=== PATIENT | female | born 1955 | race Two or more races ===

== ENCOUNTER 2016-11-30 19:46 | Inpatient (IN) | payer MEDICAID ==
[~2016-11-30] VITALS: Ht 154.9 cm; Wt 54.4 kg
[~2016-11-30 19:46] MED LIST: ASPIR 8181 MG ORAL; GLIPIZIDE5 MG ORAL; METFORMIN HCL500 M1 ORAL
[2016-11-30] MEDS ORDERED: cholesterol med (19:51)
--- NOTE | 2016-11-30 19:53 | Emergency Room Report ---
History of Present Illness General Chief Complaint: Fever Source: Patient, EMS (JAMARCUS VARGHESE.Elias) Present Illness HPI Patient presents by paramedics for complaints of fever and chills Patient reports that she was recently in the hospital for 3 days sounds to be [facility] patient reports she was given antibiotics and does not know the source of her infection However today She felt increased chills and increased fever And summoned the paramedics Denies any abdominal pain denies any vomiting Denies any rash Patient has a history of diabetes and hypertension Denies any flank pain Denies any recent travel Denies any neck pain or photophobia (JAMARCUS VARGHESE.Micah.) Allergies: Coded Allergies: No Known Allergies (Unverified , 11/30/16) Patient History Past Medical History: see triage record Pertinent Family History: none Last Menstrual Period: n/a Reviewed Nursing Documentation: PMH: Agreed, PSxH: Agreed (JAMARCUS VARGHESE D.O.) Nursing Documentation-PMH Past Medical History: No History, Except For Hx Hypertension: Yes Hx Diabetes: Yes (JAMARCUS VARGHESE D.O.) Review of Systems All Other Systems: negative except mentioned in HPI (JAMARCUS VARGHESE.Elias) Physical Exam Vital Signs Date Time Temp Pulse Resp B/P (MAP) Pulse Ox O2 Delivery O2 Flow Rate FiO2 11/30/16 19:37 100.6 134 20 120/65 98 Room Air Sp02 EP Interpretation: reviewed, normal General Appearance: well appearing, no apparent distress Head: normocephalic, atraumatic Eyes: bilateral eye PERRL, bilateral eye EOMI ENT: hearing grossly normal, TMs + canals normal, uvula midline, dry mucus membranes Neck: full range of motion, supple, no meningismus, no bony tend Respiratory: lungs clear, normal breath sounds, no rhonchi, no respiratory distress, no retraction, no accessory muscle use Cardiovascular #1: normal peripheral pulses, no edema, no gallop, no JVD, no murmur, tachycardia Gastrointestinal: normal bowel sounds, non tender, soft, no mass, no organomegaly, non-distended, no guarding, no hernia, no pulsatile mass, no rebound Genitourinary: no CVA tenderness Musculoskeletal: normal inspection Neurologic: oriented x3, responsive, spot cleaner III-XII nml as tested, motor strength/ tone normal, sensory intact Psychiatric: mood/affect normal Skin: normal color, no rash, warm/dry, palpation normal Lymphatic: normal inspection, no adenopathy (JAMARCUS VARGHESE D.O.) Medical Decision Making Diagnostic Impression: Primary Impression: Sepsis Additional Impression: Pyelonephritis ER Course Multiple differentials considered Patient is presenting febrile and tachycardic there is likely source of infection raising concerns of sepsis There does not appear to be any signs of severe sepsis Patient was provided with broad-spectrum antibiotics cultures have been obtained the patient requires admission for further care Labs Test 11/30/16 20:20 White Blood Count 4.9 K/UL (4.8-10.8) Red Blood Count 3.37 M/UL (4.20-5.40) Hemoglobin 9.5 G/DL (12.0-16.0) Hematocrit 29.0 % (37.0-47.0) Mean Corpuscular Volume 86 FL (80-99) Mean Corpuscular Hemoglobin 28.3 PG (27.0-31.0) Mean Corpuscular Hemoglobin Concent 32.8 G/DL (32.0-36.0) Red Cell Distribution Width 13.0 % (11.6-14.8) Platelet Count 299 K/UL (150-450) Mean Platelet Volume 6.0 FL (6.5-10.1) Neutrophils (%) (Auto) % (45.0-75.0) Lymphocytes (%) (Auto) % (20.0-45.0) Monocytes (%) (Auto) % (1.0-10.0) Eosinophils (%) (Auto) % (0.0-3.0) Basophils (%) (Auto) % (0.0-2.0) Differential Total Cells Counted 100 Neutrophils % (Manual) 87 % (45-75) Lymphocytes % (Manual) 5 % (20-45) Monocytes % (Manual) 2 % (1-10) Eosinophils % (Manual) 0 % (0-3) Basophils % (Manual) 0 % (0-2) Band Neutrophils 6 % (0-8) Platelet Estimate Adequate Platelet Morphology Normal Hypochromasia 1+ Anisocytosis 1+ Urine Color Pale yellow Urine Appearance Slightly cloudy Urine pH 7 (4.5-8.0) Urine Specific [place] 1.010 (1.005-1.035) Urine Protein 2+ (NEGATIVE) Urine Glucose (UA) Negative (NEGATIVE) Urine Ketones Negative (NEGATIVE) Urine Occult Blood 3+ (NEGATIVE) Urine Nitrite Positive (NEGATIVE) Urine Bilirubin Negative (NEGATIVE) Urine Urobilinogen Normal MG/DL (0.0-1.0) Urine Leukocyte Esterase 3+ (NEGATIVE) Urine RBC 15-20 /HPF (0 - 2) Urine WBC 30-40 /HPF (0 - 2) Urine Squamous Epithelial Cells Few /LPF (NONE/OCC) Urine Amorphous Sediment Few /LPF (NONE) Urine Bacteria Moderate /HPF (NONE) Sodium Level 138 mEQ/L (135-145) Potassium Level 3.7 mEQ/L (3.4-4.9) Chloride Level 101 mEQ/L (98-107) Carbon Dioxide Level 22 mEQ/L (20-30) Anion Gap 15 (5-15) Blood Urea Nitrogen 18 mg/dL (7-23) Creatinine 0.9 mg/dL (0.5-0.9) Estimat Glomerular Filtration Rate > 60 mL/min (>60) Glucose Level 150 mg/dL (74-106) Lactic Acid Level 1.00 mmol/L (0.66-2.22) Calcium Level 8.6 mg/dL (8.6-10.2) Total Bilirubin 0.8 mg/dL (0.0-1.2) Aspartate Amino Transf (AST/SGOT) 19 U/L (5-40) Alanine Aminotransferase (ALT/SGPT) 18 U/L (3-33) Alkaline Phosphatase 85 U/L (35-104) Total Creatine Kinase 289 U/L (26-140) Creatine Kinase MB 3.2 ng/mL (< 3.8) Creatine Kinase MB Relative Index 1.1 Total Protein 7.7 g/dL (6.6-8.7) Albumin 3.3 g/dL (3.5-5.2) Globulin 4.4 g/dL Albumin/Globulin Ratio 0.7 (1.0-2.7) Lipase 23 U/L (< 60) (JAMARCUS VARGHESE D.OFreddie) ER Course Received signout 61-year-old female likely with pyelonephritis, pending formal read of CAT scan Received antibiotic, defervesced, pain improved Will be admitted to [facility] to Dr. duckworth (Kristofer Smith M.D.) Rhythm Strip Diag. Results EP Interpretation: yes Rate: 115 Rhythm: no PVC's, no ectopy, other - sinus tach (AJMARCUS VARGHESE D.O.) Chest X-Ray Diagnostic Results Chest X-Ray Diagnostic Results : Chest X-Ray Ordered: Yes # of Views/Limited/Complete: 1 View Indication: Chest Pain EP Interpretation: Yes Interpretation: no consolidation, no effusion, no pneumothorax Impression: No acute disease Electronically Signed by: Jamarcus Varghese DO (JAMARCUS VARGHESE D.O.) CT/MRI/US Diagnostic Results CT/MRI/US Diagnostic Results : Impression ct abd pelvis:Impression: Severe bilateral hydronephrosis and hydroureter which appears to be related to extrinsic compression of distal ureters secondary to severe inferior vaginal prolapse of urinary bladder. (JAMARCUS VARGHESE D.O.) Last Vital Signs Date Time Temp Pulse Resp B/P (MAP) Pulse Ox O2 Delivery O2 Flow Rate FiO2 11/30/16 19:37 100.6 134 20 120/65 98 Room Air Status: improved (JAMARCUS VARGHEES D.O.) Disposition: ADMITTED INPATIENT Condition: Serious JAMARCUS VARGHESE D.O. Nov 30, 2016 19:53 Kristofer Smith M.D. Nov 30, 2016 22:40
[2016-11-30] MEDS ORDERED: NS 1000ml 1,600 ML IVLG ONE (20:00)
[2016-11-30] MEDS ORDERED: cefTRIAXone 1 GM in NS 55 ML IVPB ONE (20:00)
[2016-11-30 20:35] VITALS: BP 131/55
[2016-11-30 20:43] LABS: MEAN CORPUSCULAR HEMOGLOBIN 28.3 PG (27.0-31.0); MEAN CORPUSCULAR HGB CONC 32.8 G/DL (32.0-36.0); MEAN CORPUSCULAR VOLUME 86 FL (80-99); PLATELET COUNT 299 K/UL (150-450); RED BLOOD COUNT 3.37 M/UL (4.20-5.40); WHITE BLOOD COUNT 4.9 K/UL (4.8-10.8)
[2016-11-30 20:54] LABS: ALANINE AMINOTRANSFERASE 18 U/L (3-33); ALBUMIN/GLOBULIN RATIO 0.7 (1.0-2.7); ANION GAP 15 (5-15); ASPARTATE AMINO TRANSFERASE 19 U/L (5-40); CALCIUM 8.6 mg/dL (8.6-10.2); CARBON DIOXIDE 22 mEQ/L (20-30); CHLORIDE 101 mEQ/L (98-107); CREATININE 0.9 mg/dL (0.5-0.9); GLOMERULAR FILTRATION RATE > 60 mL/min (>60); HEMOLYSIS 0; LIPASE 23 U/L (< 60); POTASSIUM 3.7 mEQ/L (3.4-4.9); SODIUM 138 mEQ/L (135-145); TOTAL PROTEIN 7.7 g/dL (6.6-8.7)
[2016-11-30 21:00] LABS: APPEARANCE,URINE SLIGHTLY CLOUDY; KETONES,URINE NEGATIVE (NEGATIVE); LEUKOCYTE ESTERASE ,URINE 3+ (NEGATIVE); NITRITE,URINE POSITIVE (NEGATIVE); PH,URINE 7 (4.5-8.0); PROTEIN,URINE 2+ (NEGATIVE); UROBILINOGEN,URINE NORMAL MG/DL (0.0-1.0)
[2016-11-30 21:05] LABS: CKMB 3.2 ng/mL (< 3.8)
[2016-11-30 21:07] LABS: AMORPHOUS SEDIMENT,UR FEW /LPF; BACTERIA,URINE MODERATE /HPF; RBC,URINE 15-20 /HPF (0 - 2); SQUAMOUS EPITHELIAL CELL,UR FEW /LPF (NONE/OCC); WBC,URINE 30-40 /HPF (0 - 2)
[2016-11-30] MEDS ORDERED: AZITHROMYC200 MG/5 M ORAL (21:11)
[2016-11-30 21:12] VITALS: BP 114/48
[2016-11-30 21:47] LABS: ANISOCYTOSIS 1+; BAND NEUTROPHILS % (MANUAL) 6 % (0-8); BASOPHILS % (MANUAL) 0 % (0-2); EOSINOPHILS % (MANUAL) 0 % (0-3); HYPOCHROMASIA 1+; LYMPHOCYTES % (MANUAL) 5 % (20-45); NEUTROPHILS % (MANUAL) 87 % (45-75); PLATELET ESTIMATE ADEQUATE; PLATELET MORPHOLOGY NORMAL; TOTAL CELLS COUNTED 100
[2016-11-30 21:59] VITALS: BP 103/49
[2016-11-30] MEDS ORDERED: Morphine Sulfate 2mg/ml Inj IVP PRN (22:45)
[2016-11-30] MEDS ORDERED: Nitroglycerin Subl 0.4mg tab SL PRN (22:45)
[2016-11-30] MEDS ORDERED: Miralax 17gm pkt ORAL PRN (22:45)
[2016-11-30] MEDS ORDERED: Albuterol/Ipratropium 3ml neb HHN PRN (22:45)
[2016-11-30 22:58] VITALS: BP 96/43
[2016-11-30 23:26] VITALS: BP 104/50
[2016-12-01] VITALS (7 sets, daily range): BP systolic 93–123; BP diastolic 51–64
[2016-12-01] MEDS ORDERED: Vancomycin 1gm inj IVPB ONE (00:32)
[2016-12-01] MEDS: Vancomycin 1 GM in D5W 275 ML IV SCH (00:42)
[2016-12-01] MEDS: NovoLOG Insulin Flexpen SUBQ SCH ×4 (06:35→21:34)
[2016-12-01 07:53] LABS: MEAN CORPUSCULAR HEMOGLOBIN 28.6 PG (27.0-31.0); MEAN CORPUSCULAR HGB CONC 33.1 G/DL (32.0-36.0); MEAN CORPUSCULAR VOLUME 86 FL (80-99); MEAN PLATELET VOLUME 6.5 FL (6.5-10.1); PLATELET COUNT 301 K/UL (150-450); RED BLOOD COUNT 3.15 M/UL (4.20-5.40); WHITE BLOOD COUNT 20.9 K/UL (4.8-10.8)
[2016-12-01 08:12] LABS: ALANINE AMINOTRANSFERASE 19 U/L (3-33); ALBUMIN/GLOBULIN RATIO 0.7 (1.0-2.7); ANION GAP 12 (5-15); ASPARTATE AMINO TRANSFERASE 29 U/L (5-40); CALCIUM 8.1 mg/dL (8.6-10.2); CARBON DIOXIDE 24 mEQ/L (20-30); CHLORIDE 109 mEQ/L (98-107); CREATININE 0.9 mg/dL (0.5-0.9); GLOMERULAR FILTRATION RATE > 60 mL/min (>60); HEMOLYSIS 5; SODIUM 145 mEQ/L (135-145); TOTAL PROTEIN 6.7 g/dL (6.6-8.7)
[2016-12-01] MEDS: Cefepime HCl 2 GM in D5W 110 ML IV SCH (08:51)
[2016-12-01] MEDS: Heparin 5000 units/ml inj SUBQ SCH ×2 (08:53→21:34)
--- NOTE | 2016-12-01 09:17 | Diagnostic Imaging Report ---
Clinical Indication: Abdominal pain, fever, chills Technique: No oral contrast utilized, per emergency room physician request IV administration nonionic contrast. Venous phase spiral acquisition obtained through the abdomen and pelvis. Multiplanar reconstructions were generated. Total dose length product 679 mGycm. CTDIvol(s) 14 mGy. Dose reduction achieved using automated exposure control Comparison: None Findings: There is massive bilateral hydronephrosis and hydroureter. The ureteral dilatation extends deep into the perineum. The bladder itself also appears to the prolapse into the perineum. The actual ureteral insertions are not well delineated, however. The bladder itself is mildly thick walled. No renal or ureteral calculi are demonstrated. There is mild infiltration of the bilateral perinephric and periureteral fat. The kidneys demonstrate bilateral cysts, as well as bilateral subcentimeter low-attenuation lesions which are too small to characterize. There is no evidence of diverticulosis or diverticulitis. The appendix is normal. No small bowel distention. There is mild diastases of the rectus abdominis tendon and a tiny focal fat-containing umbilical hernia. No free or loculated intraperitoneal air or fluid. Distal esophagus, stomach are unremarkable. There is a duodenal diverticulum. The liver, gallbladder, bile ducts, pancreas, spleen, adrenals are unremarkable. There are prominent but not frankly enlarged para-aortic and pericaval lymph nodes. Largest pericaval node measures 22 mm long axis dimension. There are prominent but not frankly enlarged pelvic sidewall lymph nodes as well as left inguinal nodes. The included lung bases demonstrate posterior dependent atelectatic changes. There is a calcified granuloma at the left lung base. The heart is borderline enlarged. The bones demonstrate degenerative spondylosis changes. Impression: Massive bilateral hydronephrosis and bilateral hydroureter. Unusual anatomy of the bladder and distal ureters. There is suggestion of collapse of the bladder floor, which could be causing extrinsic compression of the ureters. However, the possibility of ectopic ureteral insertions into the urethra should also be considered. Some stranding of the bilateral perinephric and periureteral fat, could indicate superimposed infection Nonspecific prominent para-aortic, paracaval, left inguinal nodes Borderline cardiomegaly Renal cysts. Additional bilateral subcentimeter low-attenuation lesions, too small to characterize but most likely representing benign simple cysts. No further followup necessary Incidental findings as noted, including degenerative spondylosis, posterior dependent pulmonary atelectasis, left lung base calcified granuloma duodenal diverticulum, mild diastases of the rectus abdominis tendon, tiny focal fat-containing umbilical hernia This agrees with the preliminary interpretation provided overnight by [facility] teleradiology service.. Findings also discussed by phone with Dr. Novak at the time of interpretation The CT scanner at [facility] is accredited by the [employer] and the scans are performed using protocols designed to limit radiation exposure to as low as reasonably achievable to attain images of sufficient resolution adequate for diagnostic evaluation.
[2016-12-01 10:28] LABS: BAND NEUTROPHILS % (MANUAL) 4 % (0-8); BASOPHILS % (MANUAL) 1 % (0-2); EOSINOPHILS % (MANUAL) 0 % (0-3); LYMPHOCYTES % (MANUAL) 3 % (20-45); NEUTROPHILS % (MANUAL) 91 % (45-75); PLATELET ESTIMATE ADEQUATE; PLATELET MORPHOLOGY NORMAL; TOTAL CELLS COUNTED 100
--- NOTE | 2016-12-01 10:49 | Diagnostic Imaging Report ---
Indication: SOB Technique: One view of the chest Comparison: none Findings: Lungs and pleural spaces are clear. Heart size is normal. The aorta is calcified Impression: No acute process
--- NOTE | 2016-12-01 11:59 | History and Physical ---
History of Present Illness General Date patient seen: Dec 01, 2016 Reason for Hospitalization: Fever Present Illness HPI 61 year old female with hx of DM, HTN, presented with fever and chills. Her CT of abdomen showed hydronephrosis and prolaps of bladder. She is admitted to telemetry because of borderline hypotension. Allergies: Coded Allergies: No Known Allergies (Unverified , 11/30/16) Medication History Scheduled Aspirin* (Aspir 81*), 81 MG ORAL DAILY, (Reported) Azithromycin* (Azithromycin*), 200 MG ORAL BID, (Reported) Glipizide* (Glipizide*), 5 MG ORAL BIDAC, (Reported) Metformin Hcl* (Metformin Hcl*), 500 MG ORAL TWICE A DAY, (Reported) Miscellaneous Medications [cholesterol med], (Reported) Patient History Healthcare decision maker N Resuscitation status Full Code Advanced Directive on File Past Medical/Surgical History Past Medical/Surgical History: (1) Diabetes mellitus (2) Hypertension Review of Systems All Other Systems: negative except mentioned in HPI Physical Exam General Appearance: WD/WN, no apparent distress Lines, tubes and drains: peripheral, trach HEENT: normocephalic, atraumatic Neck: non-tender, normal alignment Respiratory/Chest: chest wall non-tender, lungs clear Breasts: no masses Cardiovascular/Chest: normal peripheral pulses Abdomen: normal bowel sounds Genitourinary/Rectal: normal genital exam Extremities: normal range of motion, non-tender Skin Exam: normal pigmentation Last 24 Hour Vital Signs Date Time Temp Pulse Resp B/P (MAP) Pulse Ox O2 Delivery O2 Flow Rate FiO2 12/01/16 08:46 88 16 Room Air 21 12/01/16 08:00 86 12/01/16 08:00 99.0 87 17 97/58 96 Room Air 12/01/16 04:14 98.1 88 18 93/53 97 Room Air 12/01/16 01:08 88 12/01/16 00:15 97.2 92 18 100/51 96 Room Air 12/01/16 00:02 99.6 112 20 104/50 97 Room Air 100 11/30/16 23:26 99.6 100 20 104/50 97 Room Air 11/30/16 22:58 99.6 102 20 96/43 97 Room Air 11/30/16 22:52 99.6 112 20 103/49 96 Room Air 102 11/30/16 21:59 99.6 98 20 103/49 96 Room Air 11/30/16 21:12 100.4 112 20 114/48 96 Room Air 11/30/16 21:11 100.4 11/30/16 20:35 103.0 112 20 131/55 96 Room Air 11/30/16 19:37 100.6 134 20 120/65 98 Room Air Laboratory Tests Test 11/30/16 20:20 12/01/16 06:50 White Blood Count 4.9 K/UL (4.8-10.8) 20.9 K/UL (4.8-10.8) #H Red Blood Count 3.37 M/UL (4.20-5.40) L 3.15 M/UL (4.20-5.40) L Hemoglobin 9.5 G/DL (12.0-16.0) L 9.0 G/DL (12.0-16.0) L Hematocrit 29.0 % (37.0-47.0) L 27.2 % (37.0-47.0) L Mean Corpuscular Volume 86 FL (80-99) 86 FL (80-99) Mean Corpuscular Hemoglobin 28.3 PG (27.0-31.0) 28.6 PG (27.0-31.0) Mean Corpuscular Hemoglobin Concent 32.8 G/DL (32.0-36.0) 33.1 G/DL (32.0-36.0) Red Cell Distribution Width 13.0 % (11.6-14.8) 13.0 % (11.6-14.8) Platelet Count 299 K/UL (150-450) 301 K/UL (150-450) Mean Platelet Volume 6.0 FL (6.5-10.1) L 6.5 FL (6.5-10.1) Neutrophils (%) (Auto) % (45.0-75.0) % (45.0-75.0) Lymphocytes (%) (Auto) % (20.0-45.0) % (20.0-45.0) Monocytes (%) (Auto) % (1.0-10.0) % (1.0-10.0) Eosinophils (%) (Auto) % (0.0-3.0) % (0.0-3.0) Basophils (%) (Auto) % (0.0-2.0) % (0.0-2.0) Differential Total Cells Counted 100 100 Neutrophils % (Manual) 87 % (45-75) H 91 % (45-75) H Lymphocytes % (Manual) 5 % (20-45) L 3 % (20-45) L Monocytes % (Manual) 2 % (1-10) 1 % (1-10) Eosinophils % (Manual) 0 % (0-3) 0 % (0-3) Basophils % (Manual) 0 % (0-2) 1 % (0-2) Band Neutrophils 6 % (0-8) 4 % (0-8) Platelet Estimate Adequate Adequate Platelet Morphology Normal Normal Hypochromasia 1+ Anisocytosis 1+ Urine Color Pale yellow Urine Appearance Slightly cloudy Urine pH 7 (4.5-8.0) Urine Specific [place] 1.010 (1.005-1.035) Urine Protein 2+ (NEGATIVE) H Urine Glucose (UA) Negative (NEGATIVE) Urine Ketones Negative (NEGATIVE) Urine Occult Blood 3+ (NEGATIVE) H Urine Nitrite Positive (NEGATIVE) H Urine Bilirubin Negative (NEGATIVE) Urine Urobilinogen Normal MG/DL (0.0-1.0) Urine Leukocyte Esterase 3+ (NEGATIVE) H Urine RBC 15-20 /HPF (0 - 2) H Urine WBC 30-40 /HPF (0 - 2) H Urine Squamous Epithelial Cells Few /LPF (NONE/OCC) Urine Amorphous Sediment Few /LPF (NONE) H Urine Bacteria Moderate /HPF (NONE) H Sodium Level 138 mEQ/L (135-145) 145 mEQ/L (135-145) Potassium Level 3.7 mEQ/L (3.4-4.9) 4.0 mEQ/L (3.4-4.9) Chloride Level 101 mEQ/L (98-107) 109 mEQ/L (98-107) H Carbon Dioxide Level 22 mEQ/L (20-30) 24 mEQ/L (20-30) Anion Gap 15 (5-15) 12 (5-15) Blood Urea Nitrogen 18 mg/dL (7-23) 13 mg/dL (7-23) Creatinine 0.9 mg/dL (0.5-0.9) 0.9 mg/dL (0.5-0.9) Estimat Glomerular Filtration Rate > 60 mL/min (>60) > 60 mL/min (>60) Glucose Level 150 mg/dL (74-106) H 145 mg/dL (74-106) H Lactic Acid Level 1.00 mmol/L (0.66-2.22) Calcium Level 8.6 mg/dL (8.6-10.2) 8.1 mg/dL (8.6-10.2) L Total Bilirubin 0.8 mg/dL (0.0-1.2) 0.9 mg/dL (0.0-1.2) Aspartate Amino Transf (AST/SGOT) 19 U/L (5-40) 29 U/L (5-40) Alanine Aminotransferase (ALT/SGPT) 18 U/L (3-33) 19 U/L (3-33) Alkaline Phosphatase 85 U/L (35-104) 105 U/L (35-104) H Total Creatine Kinase 289 U/L (26-140) H Creatine Kinase MB 3.2 ng/mL (< 3.8) Creatine Kinase MB Relative Index 1.1 Total Protein 7.7 g/dL (6.6-8.7) 6.7 g/dL (6.6-8.7) Albumin 3.3 g/dL (3.5-5.2) L 2.9 g/dL (3.5-5.2) L Globulin 4.4 g/dL 3.8 g/dL Albumin/Globulin Ratio 0.7 (1.0-2.7) L 0.7 (1.0-2.7) L Lipase 23 U/L (< 60) Urine Opiates Screen Negative (NEGATIVE) Urine Barbiturates Screen Negative (NEGATIVE) Phencyclidine (PCP) Screen Negative (NEGATIVE) Urine Amphetamines Screen Negative (NEGATIVE) Urine Benzodiazepines Screen Negative (NEGATIVE) Urine Cocaine Screen Negative (NEGATIVE) Urine Marijuana (THC) Screen Negative (NEGATIVE) Red Blood Cell Morphology Normal Height (Feet): 5 Height (Inches): 1.00 Weight (Pounds): 120 Medications Current Medications Medications (Trade) Dose Ordered Sig/Angeli Route PRN Reason Start Time Stop Time Status Last Admin Dose Admin Acetaminophen (Tylenol) 650 mg Q4H PRN ORAL fever 11/30/16 22:45 12/30/16 22:44 Albuterol/ Ipratropium (DuoNeb 0.5-3(2.5)mg/3ml) 3 ml EVERY 4 HOURS PRN HHN Shortness of Breath 11/30/16 22:45 12/05/16 22:44 Cefepime HCl 2 gm/ Dextrose 110 ml @ 220 mls/hr Q24H IV 12/01/16 09:00 12/08/16 08:59 12/01/16 08:51 Dextrose (Dextrose 50%) STAT PRN IV Hypoglycemia 11/30/16 22:45 12/30/16 22:44 Heparin Sodium (Porcine) (Heparin 5000 units/ml) 5,000 units EVERY 12 HOURS SUBQ 12/01/16 09:00 12/31/16 08:59 12/01/16 08:53 Insulin Aspart (NovoLOG) BEFORE MEALS AND HS SUBQ 12/01/16 06:30 12/31/16 06:29 12/01/16 06:35 Morphine Sulfate (Morphine Sulfate) 2 mg EVERY 4 HOURS PRN IVP Moderate Pain (Pain Scale 4-6) 11/30/16 22:45 12/07/16 22:44 Nitroglycerin (Ntg) 0.4 mg PRN PRN SL Prn Chest Pain 11/30/16 22:45 12/30/16 22:44 Ondansetron HCl (Zofran) 4 mg Q6H PRN IVP Nausea & Vomiting 11/30/16 22:45 12/30/16 22:44 Polyethylene Glycol (Miralax) 17 gm DAILYPRN PRN ORAL Constipation 11/30/16 22:45 12/30/16 22:44 Temazepam (Restoril) 15 mg HSPRN PRN ORAL Insomnia 11/30/16 22:45 12/07/16 22:44 Vancomycin HCl (Vanco rx to dose) 1 ea DAILY PRN MISC PER RX PROTOCOL 12/01/16 10:45 12/31/16 10:44 Vancomycin HCl 1 gm/Dextrose 275 ml @ 183.3 mls/ hr Q24H IV 12/01/16 00:30 12/06/16 00:29 12/01/16 00:42 Assessment/Plan Problem List: (1) Sepsis ICD Codes: A41.9 - Sepsis, unspecified organism SNOMED: 48838332 (2) Pyelonephritis ICD Codes: N12 - Tubulo-interstitial nephritis, not specified as acute or chronic SNOMED: 54215623 (3) Diabetes mellitus ICD Codes: E11.9 - Type 2 diabetes mellitus without complications SNOMED: 84098080 (4) Hypertension ICD Codes: I10 - Essential (primary) hypertension SNOMED: 35243679 Assessment/Plan stevenson culture IV abx Urology and ID to see dvt prophylaxis TRINA VÁSQUEZ Dec 01, 2016 11:59
[2016-12-01] MEDS ORDERED: NS 275ml ONE (15:41)
[2016-12-01] MEDS ORDERED: Tubing IV Secondary IV ONE (15:41)
--- NOTE | 2016-12-01 16:30 | Cardiology Report ---
APPROVED REPORT EKG Measurement Heart [id number] MT [id number] [id number] Sinus tachycardia Otherwise normal ECG
[2016-12-01 18:52] LABS: URIC ACID 3.2 mg/dL (3.0-7.5)
[2016-12-01 19:00] LABS: THYROID STIMULATING HORMONE 1.25 uIU/mL (0.300-4.500)
[2016-12-02] MEDS: Vancomycin 1 GM in D5W 275 ML IV SCH (00:35)
[2016-12-02 03:59] VITALS: BP 108/57
[2016-12-02] MEDS: NovoLOG Insulin Flexpen SUBQ SCH ×4 (06:30→20:43)
--- NOTE | 2016-12-02 06:45 | Consultation ---
DATE OF CONSULTATION: 12/01/2016 UROLOGY CONSULTATION CONSULTING PHYSICIAN: Gerson Lopez M.D. ATTENDING/REFERRING PHYSICIAN: Jayla Novak M.D. Chief Complaint/History Of Present Illness: I was asked by Dr. Novak to evaluate this very pleasant, 61-year-old, female regarding a history of vaginal prolapse and bilateral hydroureteronephrosis possibly secondary to same. Briefly, the patient has a history of prolapse and was seen at [facility] for the same several months ago. Initially, she was treated with a pessary, which improved things and allowed her to return to regular activities. Unfortunately, however the prolapse eventually occurred around her pessary and led to urinary retention. It was felt that the pessary maybe contributing and it was removed. The patient had failed to follow up with [facility] since that time. She now presents to the hospital with history of fevers and chills. A CT scan of the abdomen and pelvis reveals hydroureteronephrosis bilaterally and prolapsed organ within the vagina. Given the same, I was asked to evaluate the patient. PAST MEDICAL HISTORY: 1. Diabetes mellitus. 2. Hypertension. 3. Pelvic prolapse. 4. Hypercholesterolemia. Medications: Please see the chart for current medications administration details. Briefly, the patient generally is on glipizide and metformin. She is receiving azithromycin for antibiotic coverage. ALLERGIES: No known drug allergies. SOCIAL HISTORY: Unremarkable for tobacco, alcohol, or drug use. FAMILY HISTORY: Noncontributory. Review Of Systems: A 12-system review of systems essentially unremarkable outside was described above. PHYSICAL EXAMINATION: General: The patient is an older female, awake, alert, and oriented x4. Very pleasant. No obvious distress. HEENT: NC/AT. EOMI. NECK: Supple. Full range of motion. Oropharynx clear. CHEST: Within normal limits. ABDOMEN: Soft, flat, nontender and nondistended. Extremities: Warm and well perfused. No cyanosis, clubbing, or edema. BACK: No CVA tenderness to percussion. NEUROLOGIC: Grossly nonfocal. Genitourinary: Reveals uterine prolapse grade 3 with the os visible on the cervix. The bladder is not appreciably prolapsed next to or around the uterus. This was reducible today at the bedside. Laboratory Data: White blood cell count 20.9, hematocrit 27.2, and platelets 301,000. Urinalysis specific gravity 1.010, pH 7.0. Dip test notable for 2+ protein, 3+ occult blood, positive nitrites, and 3+ leukocyte esterase. Microanalysis with 15 to 20 red blood cells per high-power field, 30 to 40 white blood cells per power field and moderate bacteria seen. Urine culture is pending. Sodium 145, potassium 4.0, chloride 109, bicarb 24, BUN 13, creatinine 0.9, and glucose 145. Calcium 8.1. Uric acid 3.2. LFTs within normal limits. Alkaline phosphatase 105. Urine toxicology negative. Diagnostic Imaging: CT scan of the abdomen and pelvis reveals massive bilateral hydroureteronephrosis and hydroureter. The ureteral dilatation extends deep into the perineum. The bladder also appears to prolapse in the perineum. The actual ureteral insertions are not well delineated. However, the bladder itself is mildly thick walled. There are no calculi demonstrated. There is mild stranding of bilateral renal cysts. Discussion And Decision-Making: In summary, Ms. Carlos is a 61-year-old female with a history of pelvic prolapse in the past. She has been treated with a pessary for the same, but later had a removed when she could urinate. Since that time, she has not followed up until now when she presents to the hospital with fevers and chills and evidence of urinary tract infection. Workup with CT scan revealed bilateral hydroureteronephrosis and anatomy of the pelvis thought to be a prolapsed bladder. Physical exam however reveals that the uterus is prolapsed and is likely compressing both ureters and causing the hydroureteronephrosis. There is no appreciable prolapse of bladder visible. Laboratory data is notable for evidence of urinary tract infection and elevated white blood cell count. Diagnostic imaging reveals the findings as described above. Today, at the bedside, I did reduce the patient's uterus easily into her vagina. I discussed these findings with her and instructed her that she needs to be treated for her infection prior to considering any surgery. We will continue antibiotics and fluids and supportive care. Once the patient is improved and discharged home, she needs to follow up with a plan contracted director [facility] for consideration of simple hysterectomy for treatment of the same. The need for a concomitant cystocele repair can be assessed at that time, but again I could not appreciate any significant bladder prolapse today at the bedside. Thank you for allowing me to participate in the care of this nice lady. Please do not hesitate to contact me if questions that further have regarding her care. I will be happy to see her with you as needed. Gerson Lopez M.D. DR: VIVIANA JOB#: [id number] CC:
[2016-12-02 07:47] LABS: MEAN CORPUSCULAR HEMOGLOBIN 28.1 PG (27.0-31.0); MEAN CORPUSCULAR HGB CONC 32.5 G/DL (32.0-36.0); MEAN CORPUSCULAR VOLUME 86 FL (80-99); MEAN PLATELET VOLUME 6.4 FL (6.5-10.1); PLATELET COUNT 256 K/UL (150-450); RED BLOOD COUNT 3.11 M/UL (4.20-5.40); WHITE BLOOD COUNT 10.6 K/UL (4.8-10.8)
[2016-12-02 08:00] VITALS: BP 114/70
[2016-12-02 08:03] LABS: INR 1.1 (0.9-1.1); PROTHROMBIN TIME 11.4 SEC (9.30-11.50)
[2016-12-02 08:04] LABS: ALANINE AMINOTRANSFERASE 25 U/L (3-33); ALBUMIN/GLOBULIN RATIO 0.7 (1.0-2.7); ANION GAP 12 (5-15); ASPARTATE AMINO TRANSFERASE 33 U/L (5-40); CALCIUM 8.6 mg/dL (8.6-10.2); CARBON DIOXIDE 25 mEQ/L (20-30); CHLORIDE 109 mEQ/L (98-107); CREATININE 0.8 mg/dL (0.5-0.9); GLOMERULAR FILTRATION RATE > 60 mL/min (>60); LACTATE DEHYDROGENASE 273 U/L (135-230); MAGNESIUM 1.9 mg/dL (1.7-2.5); PHOSPHORUS 3.3 mg/dL (2.5-4.8); POTASSIUM 3.3 mEQ/L (3.4-4.9); SODIUM 146 mEQ/L (135-145); TOTAL PROTEIN 6.5 g/dL (6.6-8.7)
[2016-12-02 08:14] LABS: HOMOCYSTINE QUANT 8.6 umol/L (0.0-15.0)
[2016-12-02 08:34] LABS: ERYTHROCYTE SEDIMENTATION RATE 125 MM/HR (0-30); HEMOLYSIS 3; IRON 12 ug/dL (37-145); TOTAL IRON BINDING CAPACITY 201 ug/dL (250-400)
--- NOTE | 2016-12-02 08:46 | Consultation ---
DATE OF CONSULTATION: 12/01/2016 HEMATOLOGY/ONCOLOGY CONSULTATION CONSULTING PHYSICIAN: Timmy Peterson M.D. REQUESTING PHYSICIAN: Jayla Novak M.D. REASON FOR CONSULTATION: Evaluation of anemia and leukocytosis. IDENTIFICATION DATA: Dear Dr. Novak, The patient is a pleasant 61-year-old female with past medical history significant for diabetes mellitus, hypertension, CAT scan to have hydronephrosis, prolapse of the bladder, admitted to telemetry for borderline elevated blood pressure. Hematology/Oncology Service was consulted for further evaluation and treatment of underlying disorder. Past Medical History: Diabetes mellitus, hypertension, and hydronephrosis. MEDICATIONS: Aspirin, azithromycin, , metformin. ALLERGIES: No known drug allergies. Review of systems: Constitutional: No fever, chills, or night sweats. Skin: No rashes, lumps, or itching. HEENT: No headache, hearing or vision changes. Breasts: No lumps, pain, or discharge. Pulmonary: No cough, sputum, or shortness of breath. Gastrointestinal: No nausea, vomiting, or diarrhea. Genitourinary: No dysuria, frequency, or urgency. Musculoskeletal: No joint swelling, muscle pain, or trauma. PHYSICAL EXAMINATION: GENERAL: The patient is in no acute distress. Vital Signs: Temperature 98 degrees Fahrenheit, pulse 80, respiratory rate 12, blood pressure 197/66, and pulse oximetry of 98% on room air. PULMONARY: Decreased breath sounds. CARDIOVASCULAR: Regular rate. No S3 or S4. ABDOMEN: Soft, nontender, and nondistended. EXTREMITIES: A 1+ edema. Laboratory Data: WBC 21, hemoglobin 9, hematocrit 27, and platelet count of . ASSESSMENT AND PLAN: 1. Leukocytosis, likely secondary to infection. She is on IV antibiotics as per ID service and Urology. 2. Hydronephrosis. 3. Anemia, secondary to chronic disease. Workup has been ordered. 4. Pyelonephritis and sepsis, on antibiotics . 5. Diabetes mellitus without complications. Continue to monitor. 6. Hypertension. Currently, blood pressure is better controlled. I appreciate the consultation. Timmy Peterson M.D. DR: [place] JOB#: [id number] CC:
--- NOTE | 2016-12-02 09:31 | Pulmonology Progress Note ---
Assessment/Plan Assessment/Plan ASSESSMENT sepsis with bacteremia (gram negative) pyelonephritis DM HTN, anemia hydronephrosis 2 to prolapsed uterus hypo K PLAN OF CARE tele abx ID follows blood cx + GNR, urine cx + GNB urology eval appreciated , at bedside uterine prolapse reduced outpt hysterectomy and cystocele repair after cleared from infection BP better BS management with SS of insulin O2 HHN prn CXR negative CT A/P noted , massive bilateral hydro, and evidence of pyelo DVT prophayxlsi monitor HH, anemia w/p c/w anemia of chronic disease, watch counts, CEA WNL , check stool Ob transfuse prn replace K transfer to [facility] floor case discussed and evaluated by supervising physician Subjective Allergies: Coded Allergies: No Known Allergies (Unverified , 11/30/16) Subjective denies chest pain, SOB, palpitations sitting in the chair leukocytosis resolved Objective Last 24 Hour Vital Signs Date Time Temp Pulse Resp B/P (MAP) Pulse Ox O2 Delivery O2 Flow Rate FiO2 12/02/16 04:00 73 12/02/16 03:59 98.2 76 16 108/57 97 Room Air 12/02/16 00:00 79 12/01/16 23:57 97.9 84 18 116/58 96 Room Air 12/01/16 20:19 98.8 95 19 123/61 96 Room Air 12/01/16 20:00 102 12/01/16 19:52 86 18 Room Air 21 12/01/16 16:00 83 12/01/16 16:00 99.0 88 18 114/64 97 Room Air 12/01/16 12:00 86 12/01/16 12:00 98.2 88 18 99/61 96 Room Air General Appearance: no acute distress HEENT: normocephalic, atraumatic, anicteric, mucous membranes moist Respiratory/Chest: lungs clear, no respiratory distress, no accessory muscle use Cardiovascular: normal peripheral pulses, normal rate, regular rhythm - SR on tele , no JVD Abdomen: normal bowel sounds, soft, non tender, non distended Genitourinary: normal external genitalia Extremities: no edema, pedal pulses normal Neurologic/Psychiatric: alert, oriented x 3, responsive Musculoskeletal: normal muscle bulk Microbiology Date/Time Source Procedure Growth Status 11/30/16 20:15 Blood Blood Culture - Preliminary Gram Negative Bacillus 1 Resulted 11/30/16 20:00 Blood Blood Culture - Preliminary Gram Negative Bacillus 1 Resulted 12/01/16 09:30 Urine,Ureter/Kidney Urine Culture - Preliminary Gram Negative Bacillus 1 Resulted 11/30/16 20:20 Urine,Clean Catch Urine Culture - Preliminary Gram Negative Bacillus 1 Resulted Laboratory Tests 12/01/16 17:25: Fibrinogen 700H, Uric Acid 3.2, Ferritin 299H, Total Bilirubin 0.7, Total Protein (PEP) [Pending], Albumin (PEP) [Pending], Globulin (PEP) [Pending], Albumin/Globulin Ratio [Pending], Nxdlm-1-Zrswhrood [Pending], Alpha-2- Globulins [Pending], Beta Globulins [Pending], Beta Gamma Globulin [Pending], PEP Abnormal Protein Bands [Pending], Protein Electrophoresis Interpret [Pending ], Homocystine 8.6, Thyroid Stimulating Hormone (TSH) 1.250 12/02/16 05:30: Total Bilirubin 0.5, Albumin/Globulin Ratio 0.7L, White Blood Count 10.6, Red Blood Count 3.11L, Hemoglobin 8.7L, Hematocrit 26.9L, Mean Corpuscular Volume 86 , Mean Corpuscular Hemoglobin 28.1, Mean Corpuscular Hemoglobin Concent 32.5, Red Cell Distribution Width 13.0, Platelet Count 256, Mean Platelet Volume 6.4L , Neutrophils (%) (Auto) , Lymphocytes (%) (Auto) , Monocytes (%) (Auto) , Eosinophils (%) (Auto) , Basophils (%) (Auto) , Neutrophils % (Manual) [Pending] , Lymphocytes % (Manual) [Pending], Platelet Estimate [Pending], Platelet Morphology [Pending], Erythrocyte Sedimentation Rate 125H, Reticulocyte Count [ Pending], Prothrombin Time 11.4, Prothromb Time International Ratio 1.1, Activated Partial Thromboplast Time 35H, Sodium Level 146H, Potassium Level 3.3L , Chloride Level 109H, Carbon Dioxide Level 25, Anion Gap 12, Blood Urea Nitrogen 10, Creatinine 0.8, Estimat Glomerular Filtration Rate > 60, Glucose Level 105, Calcium Level 8.6, Phosphorus Level 3.3, Magnesium Level 1.9, Iron Level 12L, Total Iron Binding Capacity 201L, Percent Iron Saturation 6L, Unsaturated Iron Binding 189, Aspartate Amino Transf (AST/SGOT) 33, Alanine Aminotransferase (ALT/SGPT) 25, Alkaline Phosphatase 166H, Lactate Dehydrogenase 273H, Total Protein 6.5L, Albumin 2.7L, Globulin 3.8, Carcinoembryonic Antigen 1.2, Vitamin B12 Level 1179H, Folate [Pending] Current Medications Medications (Trade) Dose Ordered Sig/Angeli Route PRN Reason Start Time Stop Time Status Last Admin Dose Admin Acetaminophen (Tylenol) 650 mg Q4H PRN ORAL fever 11/30/16 22:45 12/30/16 22:44 Albuterol/ Ipratropium (DuoNeb 0.5-3(2.5)mg/3ml) 3 ml EVERY 4 HOURS PRN HHN Shortness of Breath 11/30/16 22:45 12/05/16 22:44 Cefepime HCl 2 gm/ Dextrose 110 ml @ 220 mls/hr Q24H IV 12/01/16 09:00 12/08/16 08:59 12/01/16 08:51 Dextrose (Dextrose 50%) STAT PRN IV Hypoglycemia 11/30/16 22:45 12/30/16 22:44 Heparin Sodium (Porcine) (Heparin 5000 units/ml) 5,000 units EVERY 12 HOURS SUBQ 12/01/16 09:00 12/31/16 08:59 12/01/16 21:34 Insulin Aspart (NovoLOG) BEFORE MEALS AND HS SUBQ 12/01/16 06:30 12/31/16 06:29 12/01/16 21:34 Morphine Sulfate (Morphine Sulfate) 2 mg EVERY 4 HOURS PRN IVP Moderate Pain (Pain Scale 4-6) 11/30/16 22:45 12/07/16 22:44 Nitroglycerin (Ntg) 0.4 mg PRN PRN SL Prn Chest Pain 11/30/16 22:45 12/30/16 22:44 Ondansetron HCl (Zofran) 4 mg Q6H PRN IVP Nausea & Vomiting 11/30/16 22:45 12/30/16 22:44 Polyethylene Glycol (Miralax) 17 gm DAILYPRN PRN ORAL Constipation 11/30/16 22:45 12/30/16 22:44 Temazepam (Restoril) 15 mg HSPRN PRN ORAL Insomnia 11/30/16 22:45 12/07/16 22:44 Vancomycin HCl (Vanco rx to dose) 1 ea DAILY PRN MISC PER RX PROTOCOL 12/01/16 10:45 12/31/16 10:44 Vancomycin HCl 1 gm/Dextrose 275 ml @ 183.3 mls/ hr Q24H IV 12/01/16 00:30 12/06/16 00:29 12/02/16 00:35 Bunny Elliott)Kait NP Dec 02, 2016 09:30
[2016-12-02] MEDS: Cefepime HCl 2 GM in D5W 110 ML IV SCH (09:36)
[2016-12-02] MEDS: Heparin 5000 units/ml inj SUBQ SCH ×2 (09:39→20:42)
[2016-12-02 09:55] LABS: PATH BLOOD SMEAR/OMC SENT TO PATHOLOGIST; RETICULOCYTE COUNT 0.5 % (0.0-2.0)
[2016-12-02 10:59] LABS: BAND NEUTROPHILS % (MANUAL) 0 % (0-8); BASOPHILS % (MANUAL) 0 % (0-2); EOSINOPHILS % (MANUAL) 2 % (0-3); LYMPHOCYTES % (MANUAL) 3 % (20-45); NEUTROPHILS % (MANUAL) 93 % (45-75); PLATELET ESTIMATE ADEQUATE; PLATELET MORPHOLOGY NORMAL; TOTAL CELLS COUNTED 100
[2016-12-02 12:00] VITALS: BP 113/70
[2016-12-02 15:12] LABS: A/G RATIO 0.8 (0.7-1.7); ABNORMAL PROTEIN BAND 1 Not Observed g/dL (Not Observed); ALBUMIN 2.7 g/dL (2.9-4.4); ALPHA-1 GLOBULIN 0.5 g/dL (0.0-0.4); ALPHA-2 GLOBULIN 0.9 g/dL (0.4-1.0); BETA GLOBULIN 0.9 g/dL (0.7-1.3); GAMMA GLOBULIN 1.4 g/dL (0.4-1.8); GLOBULIN, TOTAL 3.6 g/dL (2.2-3.9); TOTAL PROTEIN 6.3 g/dL (6.0-8.5)
--- NOTE | 2016-12-02 15:14 | Consultation ---
Consult Note Consult Note ID CONSULT: Dict# [id number] Assessment/Plan ASSESSMENT: 61 y/o female with: // Complicated GNR UTI / pyelonephritis with bacteremia - C&S pending - CT A/P: Massive bilateral hydronephrosis and bilateral hydroureter. Some stranding of the bilateral perinephric and periureteral fat, could indicate superimposed infection. Nonspecific prominent para-aortic, paracaval, left inguinal nodes // Sepsis SP // Leukocytosis - resolved // Fever - resolved // Uterine prolapse SP manual reduction by urology // NKDA // Full Code PLAN: - continue empiric cefepime d# 2 / 14. May be ok to complete course with oral alternative, if sensitive. Will DC IV vancomycin d# 2 ( no GP orgs identified ) - f/u cultures, adjust ABX accordingly. 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 Will follow LOIS JIMENEZ Dec 02, 2016 15:14
[2016-12-02 15:50] VITALS: BP 117/71
--- NOTE | 2016-12-02 16:52 | General Progress Note ---
Assessment/Plan Assessment/Plan ASSESSMENT AND PLAN: 1. Leukocytosis, likely secondary to infection. She is on IV antibiotics as per ID service and Urology. 2. Hydronephrosis. 3. Anemia, secondary to chronic disease. Workup has been reviewed. Watch counts 4. Pyelonephritis and sepsis, on antibiotics 5. Diabetes mellitus without complications. Continue to monitor. 6. Hypertension. Currently, blood pressure is better controlled. Subjective Constitutional: Reports: no symptoms HEENT: Reports: no symptoms Cardiovascular: Reports: no symptoms Respiratory: Reports: no symptoms Gastrointestinal/Abdominal: Reports: no symptoms Genitourinary: Reports: no symptoms Neurologic/Psychiatric: Reports: no symptoms Endocrine: Reports: no symptoms Hematologic/Lymphatic: Reports: anemia Allergies: Coded Allergies: No Known Allergies (Unverified , 11/30/16) Subjective NAD Objective Last 24 Hour Vital Signs Date Time Temp Pulse Resp B/P (MAP) Pulse Ox O2 Delivery O2 Flow Rate FiO2 12/02/16 15:50 97.1 78 20 117/71 97 Room Air 12/02/16 12:00 81 12/02/16 12:00 98.1 80 23 113/70 99 Room Air 12/02/16 08:00 98.2 85 22 114/70 97 Room Air 12/02/16 08:00 86 12/02/16 07:47 82 16 Room Air 21 12/02/16 04:00 73 12/02/16 03:59 98.2 76 16 108/57 97 Room Air 12/02/16 00:00 79 12/01/16 23:57 97.9 84 18 116/58 96 Room Air 12/01/16 20:19 98.8 95 19 123/61 96 Room Air 12/01/16 20:00 102 12/01/16 19:52 86 18 Room Air 21 Intake and Output 12/02/16 12/03/16 19:00 07:00 Intake Total 590 ml Balance 590 ml Intake Oral 480 ml IV Total 110 ml Laboratory Tests 12/01/16 17:25: Fibrinogen 700H, Uric Acid 3.2, Ferritin 299H, Total Bilirubin 0.7, Total Protein (PEP) 6.3, Albumin (PEP) 2.7L, Globulin (PEP) 3.6, Albumin/Globulin Ratio 0.8, Mybwk-0-Qvupugsgc 0.5H, Dtjli-3-Txnhxwoix 0.9, Beta Globulins 0.9, Beta Gamma Globulin 1.4, PEP Abnormal Protein Bands Not observed, Protein Electrophoresis Interpret Comment, Homocystine 8.6, Thyroid Stimulating Hormone (TSH) 1.250 12/02/16 05:30: Total Bilirubin 0.5, Albumin/Globulin Ratio 0.7L, White Blood Count 10.6, Red Blood Count 3.11L, Hemoglobin 8.7L, Hematocrit 26.9L, Mean Corpuscular Volume 86 , Mean Corpuscular Hemoglobin 28.1, Mean Corpuscular Hemoglobin Concent 32.5, Red Cell Distribution Width 13.0, Platelet Count 256, Mean Platelet Volume 6.4L , Neutrophils (%) (Auto) , Lymphocytes (%) (Auto) , Monocytes (%) (Auto) , Eosinophils (%) (Auto) , Basophils (%) (Auto) , Differential Total Cells Counted 100, Neutrophils % (Manual) 93H, Lymphocytes % (Manual) 3L, Monocytes % (Manual) 2, Eosinophils % (Manual) 2, Basophils % (Manual) 0, Band Neutrophils 0 , Platelet Estimate Adequate, Platelet Morphology Normal, Red Blood Cell Morphology Normal, Erythrocyte Sedimentation Rate 125H, Reticulocyte Count 0.5, Prothrombin Time 11.4, Prothromb Time International Ratio 1.1, Activated Partial Thromboplast Time 35H, Sodium Level 146H, Potassium Level 3.3L, Chloride Level 109H, Carbon Dioxide Level 25, Anion Gap 12, Blood Urea Nitrogen 10, Creatinine 0.8, Estimat Glomerular Filtration Rate > 60, Glucose Level 105, Calcium Level 8.6, Phosphorus Level 3.3, Magnesium Level 1.9, Iron Level 12L, Total Iron Binding Capacity 201L, Percent Iron Saturation 6L, Unsaturated Iron Binding 189, Aspartate Amino Transf (AST/SGOT) 33, Alanine Aminotransferase (ALT /SGPT) 25, Alkaline Phosphatase 166H, Lactate Dehydrogenase 273H, Total Protein 6.5L, Albumin 2.7L, Globulin 3.8, Carcinoembryonic Antigen 1.2, Vitamin B12 Level 1179H, Folate [Pending] Height (Feet): 5 Height (Inches): 1.00 Weight (Pounds): 120 General Appearance: no apparent distress EENT: normal ENT inspection Neck: normal alignment Cardiovascular: normal rate Extremities: normal range of motion Edema: no edema noted Pedal (L), no edema noted Pedal (R) Neurologic: mysql database developer II-XII grossly normal Timmy Peterson Dec 02, 2016 16:52
[2016-12-02] MEDS ORDERED: Morphine Sulfate 2mg/ml Inj IVP PRN (17:00)
[2016-12-02] MEDS ORDERED: Albuterol/Ipratropium 3ml neb HHN PRN (17:00)
[2016-12-02 20:00] VITALS: BP 138/75
[2016-12-02] MEDS ORDERED: Cefepime HCl 2 GM in D5W 110 ML IV SCH ×4 (21:00)
[2016-12-02] MEDS ORDERED: Miralax 17gm pkt ORAL PRN (22:45)
[2016-12-02] MEDS ORDERED: Nitroglycerin Subl 0.4mg tab SL PRN (22:45)
[2016-12-03] VITALS: BP 119/68
[2016-12-03] MEDS ORDERED: Vancomycin 1 GM in D5W 275 ML IV SCH (00:30)
--- NOTE | 2016-12-03 00:30 | Consultation ---
DATE OF CONSULTATION: 12/02/2016 INFECTIOUS DISEASES CONSULTATION REQUESTING PHYSICIAN: Jayla Novak M.D. REASON FOR CONSULTATION: Sepsis secondary to UTI and bacteremia. History Of Present Illness: This is a 61-year-old female with a history of diabetes, hypertension, and hyperlipidemia, admitted on 11/30/2016 with fevers and chills. Workup was consistent with complicated gram-negative meseret UTI with bacteremia. Culture and sensitivity is pending. CT abdomen and pelvis shows massive bilateral hydronephrosis and bilateral hydroureter due to uterine prolapse and has subsequently been reduced manually by Urology. The patient is currently feeling improved and leukocytosis and fevers have resolved on empiric IV vancomycin and cefepime. ID now consulted to assist in management. PAST MEDICAL HISTORY: 1. Hypertension. 2. Hyperlipidemia. 3. Diabetes. PAST SURGICAL HISTORY: None. MEDICATIONS: 1. Vancomycin day #2. 2. Cefepime day #2. 3. Subcutaneous heparin. ALLERGIES: No known drug allergies. SOCIAL HISTORY: No active tobacco, alcohol, or illicit drug abuse. FAMILY HISTORY: Reviewed and noncontributory. Review of Systems: As per history of present illness. Ten systems reviewed, all pertinent positives and negatives noted. PHYSICAL EXAMINATION: GENERAL: No apparent distress, nontoxic appearing. Vital Signs: Maximum temperature 103 degrees, blood pressure 113/70, heart rate in the 80s, respiratory rate 20, and saturating 99% on room air. HEENT: No conjunctivitis or oral lesions. CARDIOVASCULAR: Regular rate and rhythm. No murmurs. PULMONARY: Clear to auscultation bilaterally. Abdomen: Bowel sounds present. Soft, nondistended, and nontender. No flank tenderness. EXTREMITIES: No edema. SKIN: No rash NEUROLOGICAL: Alert and oriented x3, nonfocal. Laboratory And Diagnostic Data: White blood cell count 10.6 decreased from 20.9 with left shift, hemoglobin 8.7, and platelets 256,000. Sodium 146, potassium 3.3, chloride 109, bicarbonate 25, BUN 10, and creatinine 0.8. Uric acid 3.2. Lactic acid 1. Urinalysis with pyuria and bacteriuria. Urine drug screen negative. MICROBIOLOGY: 1. On 12/01/2016, urine culture 10,000 to 20,000 colony-forming units of gram-negative rods. 2. On 11/30/2016, urine culture greater than 100,000 colony-forming units of gram-negative rods. 3. On 11/30/2016, blood culture gram-negative rods in 4/4 bottles. IMAGIN. On 11/30/2016, CT of abdomen and pelvis with massive bilateral hydronephrosis and bilateral hydroureter and some stranding of bilateral perinephric and periureteral could indicate superimposed infection, nonspecific prominent para-aortic, paracaval, and left inguinal nodes. 2. On 11/30/2016, chest x-ray no acute cardiopulmonary findings. ASSESSMENT: 1. Complicated gram-negative meseret urinary tract infection/pyelonephritis with bacteremia. Culture and sensitivity is pending. CT abdomen and pelvis as above. 2. Sepsis. 3. Leukocytosis, resolved. 4. Fever, resolved. 5. Uterine prolapse status post manual reduction by Urology. 6. No known drug allergies. 7. Full Code. PLAN: 1. Continue empiric cefepime day #2 of 14. Okay to complete course with oral alternative if sensitive. We will discontinue IV vancomycin since no gram-positive organisms have been identified. 2. Followup cultures and adjust antibiotics accordingly. We will repeat blood cultures to document clearance. 3. Monitor CBC and temperatures. 4. Monitor BMP. 5. Outpatient Gynecology evaluation for possible hysterectomy. Thank you. We will follow. Gilles Omer M.D. DR: LIZET JOB#: [id number] CC: Jayla Novak M.D.; Fax#: [phone] Lindsay M.D; Fax#: [phone]
[2016-12-03 04:00] VITALS: BP 125/60
[2016-12-03] MEDS: NovoLOG Insulin Flexpen SUBQ SCH ×4 (05:46→20:47)
[2016-12-03 07:09] LABS: BASOPHILS % (AUTO) 0.7 % (0.0-2.0); EOSINOPHILS % (AUTO) 1.2 % (0.0-3.0); LYMPHOCYTES % (AUTO) 10.3 % (20.0-45.0); MEAN CORPUSCULAR HEMOGLOBIN 28.3 PG (27.0-31.0); MEAN CORPUSCULAR VOLUME 86 FL (80-99); MEAN PLATELET VOLUME 6.6 FL (6.5-10.1); MONOCYTES % (AUTO) 9.8 % (1.0-10.0); NEUTROPHILS % (AUTO) 77.9 % (45.0-75.0); PLATELET COUNT 282 K/UL (150-450); RED BLOOD COUNT 3.24 M/UL (4.20-5.40); RED CELL DISTRIBUTION WIDTH 13.1 % (11.6-14.8); WHITE BLOOD COUNT 8.3 K/UL (4.8-10.8)
[2016-12-03 07:16] LABS: ANION GAP 10 (5-15); CALCIUM 8.9 mg/dL (8.6-10.2); CARBON DIOXIDE 25 mEQ/L (20-30); CHLORIDE 108 mEQ/L (98-107); CREATININE 0.8 mg/dL (0.5-0.9); GLOMERULAR FILTRATION RATE > 60 mL/min (>60); HEMOLYSIS 0; MAGNESIUM 1.7 mg/dL (1.7-2.5); POTASSIUM 3.7 mEQ/L (3.4-4.9); SODIUM 143 mEQ/L (135-145)
[2016-12-03 08:00] VITALS: BP 127/70
[2016-12-03] MEDS: Heparin 5000 units/ml inj SUBQ SCH ×2 (08:09→20:46)
[2016-12-03] MEDS: Ertapenem 1 GM in NS 55 ML IVPB SCH (10:30)
[2016-12-03] MEDS ORDERED: NS 275ml ONE (10:59)
[2016-12-03] MEDS ORDERED: Tubing IV Secondary IV ONE (10:59)
[2016-12-03 11:55] VITALS: BP 142/64
--- NOTE | 2016-12-03 13:29 | Pulmonology Progress Note ---
Assessment/Plan Assessment/Plan ASSESSMENT sepsis with bacteremia (E coli ESBL)) pyelonephritis with E coli ESBL DM HTN, anemia hydronephrosis 2 to prolapsed uterus hypo K PLAN OF CARE MS floor abx ID follows blood cx and urine cx + E coli ESBL will need extended treatment for bacteremia with IV abx urology eval appreciated , at bedside uterine prolapse reduced outpt hysterectomy and cystocele repair after cleared from infection BP better BS management with SS of insulin O2 HHN prn CXR negative CT A/P noted , massive bilateral hydro, and evidence of pyelo DVT prophayxlsi monitor HH, at baseline anemia w/p c/w anemia of chronic disease, watch counts, CEA WNL , stool OB negative transfuse prn K stable after replacement case discussed and evaluated by supervising physician Subjective Allergies: Coded Allergies: No Known Allergies (Unverified , 11/30/16) Subjective denies chest pain, SOB, palpitations sitting in the chair leukocytosis resolved fever last night Objective Last 24 Hour Vital Signs Date Time Temp Pulse Resp B/P (MAP) Pulse Ox O2 Delivery O2 Flow Rate FiO2 12/03/16 11:55 98.2 73 19 142/64 98 Room Air 12/03/16 08:00 98.2 80 18 127/70 94 Room Air 12/03/16 07:24 88 18 Room Air 21 12/03/16 04:00 97.9 67 20 125/60 97 Room Air 12/03/16 00:00 98.9 77 20 119/68 97 Room Air 12/02/16 21:38 99.2 12/02/16 20:30 78 18 Room Air 21 12/02/16 20:00 100.4 81 20 138/75 97 Room Air 12/02/16 15:50 97.1 78 20 117/71 97 Room Air Objective General Appearance: no acute distress HEENT: normocephalic, atraumatic, anicteric, mucous membranes moist Respiratory/Chest: lungs clear, no respiratory distress, no accessory muscle use Cardiovascular: normal peripheral pulses, normal rate, regular rhythm - SR on tele , no JVD Abdomen: normal bowel sounds, soft, non tender, non distended Genitourinary: normal external genitalia Extremities: no edema, pedal pulses normal Neurologic/Psychiatric: alert, oriented x 3, responsive Musculoskeletal: normal muscle bulk Microbiology Date/Time Source Procedure Growth Status 11/30/16 20:15 Blood Blood Culture - Final Escherichia Coli - Esbl Complete 11/30/16 20:00 Blood Blood Culture - Final Escherichia Coli - Esbl Complete 11/30/16 21:22 Nasal Nares MRSA Culture - Final NO METHICILLIN RESISTANT STAPH AUREUS... Complete 12/01/16 09:30 Urine,Ureter/Kidney Urine Culture - Final Escherichia Coli - Esbl Complete 11/30/16 20:20 Urine,Clean Catch Urine Culture - Final Escherichia Coli - Esbl Complete 11/30/16 21:22 Rectum VRE Culture - Final NO VANCOMYCIN RESISTANT ENTEROCOCCUS ... Complete Laboratory Tests 12/02/16 19:00: Stool Occult Blood Negative 12/03/16 06:25: White Blood Count 8.3, Red Blood Count 3.24L, Hemoglobin 9.2L, Hematocrit 27.8L , Mean Corpuscular Volume 86, Mean Corpuscular Hemoglobin 28.3, Mean Corpuscular Hemoglobin Concent 33.0, Red Cell Distribution Width 13.1, Platelet Count 282, Mean Platelet Volume 6.6, Neutrophils (%) (Auto) 77.9H, Lymphocytes ( %) (Auto) 10.3L, Monocytes (%) (Auto) 9.8, Eosinophils (%) (Auto) 1.2, Basophils (%) (Auto) 0.7, Sodium Level 143, Potassium Level 3.7, Chloride Level 108H, Carbon Dioxide Level 25, Anion Gap 10, Blood Urea Nitrogen 11, Creatinine 0.8, Estimat Glomerular Filtration Rate > 60, Glucose Level 109H, Calcium Level 8.9, Magnesium Level 1.7 Current Medications Medications (Trade) Dose Ordered Sig/Angeli Route PRN Reason Start Time Stop Time Status Last Admin Dose Admin Acetaminophen (Tylenol) 650 mg Q4H PRN ORAL fever 12/02/16 14:45 12/30/16 22:44 12/02/16 20:39 Albuterol/ Ipratropium (DuoNeb 0.5-3(2.5)mg/3ml) 3 ml EVERY 4 HOURS PRN HHN Shortness of Breath 12/02/16 17:00 12/05/16 22:44 Dextrose (Dextrose 50%) STAT PRN IV Hypoglycemia 12/02/16 22:45 12/30/16 22:44 Ertapenem 1 gm/ Sodium Chloride 55 ml @ 110 mls/hr Q24H IVPB 12/03/16 09:00 12/08/16 08:59 12/03/16 10:30 Heparin Sodium (Porcine) (Heparin 5000 units/ml) 5,000 units EVERY 12 HOURS SUBQ 12/02/16 21:00 12/31/16 08:59 12/03/16 08:09 Insulin Aspart (NovoLOG) BEFORE MEALS AND HS SUBQ 12/02/16 16:30 12/31/16 06:29 12/03/16 05:46 Morphine Sulfate (Morphine Sulfate) 2 mg EVERY 4 HOURS PRN IVP Moderate Pain (Pain Scale 4-6) 12/02/16 17:00 12/07/16 22:44 Nitroglycerin (Ntg) 0.4 mg PRN PRN SL Prn Chest Pain 12/02/16 22:45 12/30/16 22:44 Ondansetron HCl (Zofran) 4 mg Q6H PRN IVP Nausea & Vomiting 12/02/16 16:45 12/30/16 22:44 Polyethylene Glycol (Miralax) 17 gm DAILYPRN PRN ORAL Constipation 12/02/16 22:45 12/30/16 22:44 Temazepam (Restoril) 15 mg HSPRN PRN ORAL Insomnia 12/02/16 22:45 12/07/16 22:44 Kait Hollis NP (Vanchtein) Dec 03, 2016 13:29
--- NOTE | 2016-12-03 14:04 | General Progress Note ---
Assessment/Plan Assessment/Plan ASSESSMENT AND PLAN: 1. Leukocytosis, likely secondary to urinary tract infection and bacteremia. She is on IV antibiotics as per ID service and Urology. --> better 2. Hydronephrosis 2/2 UTI. 3. Anemia, secondary to chronic disease. Workup has been reviewed. Watch counts 4. Pyelonephritis and sepsis, on antibiotics 5. Diabetes mellitus without complications. Continue to monitor. 6. Hypertension. Currently, blood pressure is better controlled. Subjective Constitutional: Reports: no symptoms HEENT: Reports: no symptoms Cardiovascular: Reports: no symptoms Respiratory: Reports: no symptoms Gastrointestinal/Abdominal: Reports: no symptoms Genitourinary: Reports: no symptoms Neurologic/Psychiatric: Reports: no symptoms Endocrine: Reports: no symptoms Hematologic/Lymphatic: Reports: anemia Allergies: Coded Allergies: No Known Allergies (Unverified , 11/30/16) Subjective fever and chills last night per RN, better this morning upon assessment Objective Last 24 Hour Vital Signs Date Time Temp Pulse Resp B/P (MAP) Pulse Ox O2 Delivery O2 Flow Rate FiO2 12/03/16 11:55 98.2 73 19 142/64 98 Room Air 12/03/16 08:00 98.2 80 18 127/70 94 Room Air 12/03/16 07:24 88 18 Room Air 21 12/03/16 04:00 97.9 67 20 125/60 97 Room Air 12/03/16 00:00 98.9 77 20 119/68 97 Room Air 12/02/16 21:38 99.2 12/02/16 20:30 78 18 Room Air 21 12/02/16 20:00 100.4 81 20 138/75 97 Room Air 12/02/16 15:50 97.1 78 20 117/71 97 Room Air Laboratory Tests 12/02/16 19:00: Stool Occult Blood Negative 12/03/16 06:25: White Blood Count 8.3, Red Blood Count 3.24L, Hemoglobin 9.2L, Hematocrit 27.8L , Mean Corpuscular Volume 86, Mean Corpuscular Hemoglobin 28.3, Mean Corpuscular Hemoglobin Concent 33.0, Red Cell Distribution Width 13.1, Platelet Count 282, Mean Platelet Volume 6.6, Neutrophils (%) (Auto) 77.9H, Lymphocytes ( %) (Auto) 10.3L, Monocytes (%) (Auto) 9.8, Eosinophils (%) (Auto) 1.2, Basophils (%) (Auto) 0.7, Sodium Level 143, Potassium Level 3.7, Chloride Level 108H, Carbon Dioxide Level 25, Anion Gap 10, Blood Urea Nitrogen 11, Creatinine 0.8, Estimat Glomerular Filtration Rate > 60, Glucose Level 109H, Calcium Level 8.9, Magnesium Level 1.7 Height (Feet): 5 Height (Inches): 1.00 Weight (Pounds): 120 General Appearance: no apparent distress EENT: normal ENT inspection Neck: normal alignment Cardiovascular: normal rate Abdomen: normal bowel sounds Extremities: non-tender Timmy Peterson Dec 03, 2016 14:04
[2016-12-03 15:58] VITALS: BP 132/76
--- NOTE | 2016-12-03 18:18 | Infectious Diseases Prog Note ---
Assessment/Plan Assessment/Plan ASSESSMENT: 61 y/o female with: // Complicated ESBL+ E.coli UTI / pyelonephritis with bacteremia - repeat BCx pending - CT A/P: Massive bilateral hydronephrosis and bilateral hydroureter. Some stranding of the bilateral perinephric and periureteral fat, could indicate superimposed infection. Nonspecific prominent para-aortic, paracaval, left inguinal nodes // Sepsis SP // Leukocytosis - resolved // Fever - resolved // Uterine prolapse SP manual reduction by urology // NKDA // Full Code PLAN: - change empiric cefepime d# 3 to to invanz d# 1 / 14 based on cultures ( 12/02 SP IV vancomycin d# 2 ) - f/u cultures - monitor CBC, temperatures - monitor BMP - outpt rn spine eval for possible hysterectomy - DC planning Subjective Allergies: Coded Allergies: No Known Allergies (Unverified , 11/30/16) Subjective fevers improved cultures noted no new complaint Objective Vital Signs Last 24 Hour Vital Signs Date Time Temp Pulse Resp B/P (MAP) Pulse Ox O2 Delivery O2 Flow Rate FiO2 12/03/16 15:58 98.2 74 18 132/76 96 Room Air 12/03/16 11:55 98.2 73 19 142/64 98 Room Air 12/03/16 08:00 98.2 80 18 127/70 94 Room Air 12/03/16 07:24 88 18 Room Air 21 12/03/16 04:00 97.9 67 20 125/60 97 Room Air 12/03/16 00:00 98.9 77 20 119/68 97 Room Air 12/02/16 21:38 99.2 12/02/16 20:30 78 18 Room Air 21 12/02/16 20:00 100.4 81 20 138/75 97 Room Air Height (Feet): 5 Height (Inches): 1.00 Weight (Pounds): 120 General Appearance: no acute distress Respiratory/Chest: no respiratory distress Cardiovascular: normal rate, regular rhythm Abdomen: normal bowel sounds, soft, non tender, non distended Microbiology Date/Time Source Procedure Growth Status 11/30/16 20:15 Blood Blood Culture - Final Escherichia Coli - Esbl Complete 11/30/16 20:00 Blood Blood Culture - Final Escherichia Coli - Esbl Complete 11/30/16 21:22 Nasal Nares MRSA Culture - Final NO METHICILLIN RESISTANT STAPH AUREUS... Complete 12/01/16 09:30 Urine,Ureter/Kidney Urine Culture - Final Escherichia Coli - Esbl Complete 11/30/16 20:20 Urine,Clean Catch Urine Culture - Final Escherichia Coli - Esbl Complete 11/30/16 21:22 Rectum VRE Culture - Final NO VANCOMYCIN RESISTANT ENTEROCOCCUS ... Complete Laboratory Tests Test 12/02/16 19:00 12/03/16 06:25 Stool Occult Blood Negative (NEGATIVE) White Blood Count 8.3 K/UL (4.8-10.8) Red Blood Count 3.24 M/UL (4.20-5.40) L Hemoglobin 9.2 G/DL (12.0-16.0) L Hematocrit 27.8 % (37.0-47.0) L Mean Corpuscular Volume 86 FL (80-99) Mean Corpuscular Hemoglobin 28.3 PG (27.0-31.0) Mean Corpuscular Hemoglobin Concent 33.0 G/DL (32.0-36.0) Red Cell Distribution Width 13.1 % (11.6-14.8) Platelet Count 282 K/UL (150-450) Mean Platelet Volume 6.6 FL (6.5-10.1) Neutrophils (%) (Auto) 77.9 % (45.0-75.0) H Lymphocytes (%) (Auto) 10.3 % (20.0-45.0) L Monocytes (%) (Auto) 9.8 % (1.0-10.0) Eosinophils (%) (Auto) 1.2 % (0.0-3.0) Basophils (%) (Auto) 0.7 % (0.0-2.0) Sodium Level 143 mEQ/L (135-145) Potassium Level 3.7 mEQ/L (3.4-4.9) Chloride Level 108 mEQ/L (98-107) H Carbon Dioxide Level 25 mEQ/L (20-30) Anion Gap 10 (5-15) Blood Urea Nitrogen 11 mg/dL (7-23) Creatinine 0.8 mg/dL (0.5-0.9) Estimat Glomerular Filtration Rate > 60 mL/min (>60) Glucose Level 109 mg/dL (74-106) H Calcium Level 8.9 mg/dL (8.6-10.2) Magnesium Level 1.7 mg/dL (1.7-2.5) Current Medications Medications (Trade) Dose Ordered Sig/Angeli Route PRN Reason Start Time Stop Time Status Last Admin Dose Admin Acetaminophen (Tylenol) 650 mg Q4H PRN ORAL fever 12/02/16 14:45 12/30/16 22:44 12/02/16 20:39 Albuterol/ Ipratropium (DuoNeb 0.5-3(2.5)mg/3ml) 3 ml EVERY 4 HOURS PRN HHN Shortness of Breath 12/02/16 17:00 12/05/16 22:44 Dextrose (Dextrose 50%) STAT PRN IV Hypoglycemia 12/02/16 22:45 12/30/16 22:44 Ertapenem 1 gm/ Sodium Chloride 55 ml @ 110 mls/hr Q24H IVPB 12/03/16 09:00 12/08/16 08:59 12/03/16 10:30 Heparin Sodium (Porcine) (Heparin 5000 units/ml) 5,000 units EVERY 12 HOURS SUBQ 12/02/16 21:00 12/31/16 08:59 12/03/16 08:09 Insulin Aspart (NovoLOG) BEFORE MEALS AND HS SUBQ 12/02/16 16:30 12/31/16 06:29 12/03/16 16:47 Morphine Sulfate (Morphine Sulfate) 2 mg EVERY 4 HOURS PRN IVP Moderate Pain (Pain Scale 4-6) 12/02/16 17:00 12/07/16 22:44 Nitroglycerin (Ntg) 0.4 mg PRN PRN SL Prn Chest Pain 12/02/16 22:45 12/30/16 22:44 Ondansetron HCl (Zofran) 4 mg Q6H PRN IVP Nausea & Vomiting 12/02/16 16:45 12/30/16 22:44 Polyethylene Glycol (Miralax) 17 gm DAILYPRN PRN ORAL Constipation 12/02/16 22:45 12/30/16 22:44 Temazepam (Restoril) 15 mg HSPRN PRN ORAL Insomnia 12/02/16 22:45 12/07/16 22:44 LOIS JIMENEZ Dec 03, 2016 18:18
[2016-12-03 20:00] VITALS: BP 132/70
[2016-12-04] VITALS: BP 125/71
[2016-12-04 04:00] VITALS: BP 127/75
[2016-12-04] MEDS: NovoLOG Insulin Flexpen SUBQ SCH ×4 (06:30→20:24)
[2016-12-04 07:13] LABS: BASOPHILS % (AUTO) 1.1 % (0.0-2.0); EOSINOPHILS % (AUTO) 2.5 % (0.0-3.0); LYMPHOCYTES % (AUTO) 24.4 % (20.0-45.0); MEAN CORPUSCULAR HEMOGLOBIN 28.4 PG (27.0-31.0); MEAN CORPUSCULAR HGB CONC 33.3 G/DL (32.0-36.0); MEAN CORPUSCULAR VOLUME 85 FL (80-99); MEAN PLATELET VOLUME 6.3 FL (6.5-10.1); MONOCYTES % (AUTO) 15.1 % (1.0-10.0); NEUTROPHILS % (AUTO) 56.9 % (45.0-75.0); PLATELET COUNT 335 K/UL (150-450); RED BLOOD COUNT 3.49 M/UL (4.20-5.40); RED CELL DISTRIBUTION WIDTH 13.3 % (11.6-14.8); WHITE BLOOD COUNT 6.1 K/UL (4.8-10.8)
[2016-12-04 07:39] LABS: CALCIUM 9.1 mg/dL (8.6-10.2); CHLORIDE 105 mEQ/L (98-107); CREATININE 0.7 mg/dL (0.5-0.9); GLOMERULAR FILTRATION RATE > 60 mL/min (>60); HEMOLYSIS 0; POTASSIUM 3.9 mEQ/L (3.4-4.9); SODIUM 144 mEQ/L (135-145)
[2016-12-04 07:52] LABS: ANION GAP 15 (5-15); CARBON DIOXIDE 24 mEQ/L (20-30)
[2016-12-04 08:00] VITALS: BP 132/73
[2016-12-04] MEDS: Ertapenem 1 GM in NS 55 ML IVPB SCH (08:33)
[2016-12-04] MEDS: Heparin 5000 units/ml inj SUBQ SCH ×2 (08:38→20:24)
--- NOTE | 2016-12-04 09:54 | Infectious Diseases Prog Note ---
Assessment/Plan Assessment/Plan 61 y/o female with: // Complicated ESBL+ E.coli UTI / pyelonephritis with bacteremia - repeat BCx NTD - CT A/P: Massive bilateral hydronephrosis and bilateral hydroureter. Some stranding of the bilateral perinephric and periureteral fat, could indicate superimposed infection. Nonspecific prominent para-aortic, paracaval, left inguinal nodes // Sepsis SP // Leukocytosis - resolved // Fever - resolved // Uterine prolapse SP manual reduction by urology // NKDA // Full Code PLAN: - Continue invanz d# 2 / 14 for ESBL (12/03 3d Cefepime) ( 12/02 SP IV vancomycin d# 2 ) - f/u cultures - monitor CBC, temperatures - monitor BMP - outpt obstetrics gyn eval for possible hysterectomy - DC planning Subjective Allergies: Coded Allergies: No Known Allergies (Unverified , 11/30/16) Subjective afebrile in 36hrs VSS,a t RA repaet Bcx NTD no leukocytosis Objective Vital Signs Last 24 Hour Vital Signs Date Time Temp Pulse Resp B/P (MAP) Pulse Ox O2 Delivery O2 Flow Rate FiO2 12/04/16 08:00 98.2 77 16 132/73 96 Room Air 12/04/16 04:00 98.0 75 18 127/75 97 Room Air 12/04/16 00:00 97.9 70 18 125/71 98 Room Air 12/03/16 20:11 91 18 Room Air 12/03/16 20:00 98.4 72 18 132/70 97 Room Air 12/03/16 15:58 98.2 74 18 132/76 96 Room Air 12/03/16 11:55 98.2 73 19 142/64 98 Room Air Height (Feet): 5 Height (Inches): 1.00 Weight (Pounds): 120 Objective General Appearance: no acute distress Respiratory/Chest: no respiratory distress Cardiovascular: normal rate, regular rhythm Abdomen: normal bowel sounds, soft, non tender, non distended Microbiology Date/Time Source Procedure Growth Status 12/02/16 17:30 Blood Blood Culture - Preliminary NO GROWTH AFTER 24 HOURS Resulted 12/02/16 17:25 Blood Blood Culture - Preliminary NO GROWTH AFTER 24 HOURS Resulted Laboratory Tests Test 12/04/16 05:50 White Blood Count 6.1 K/UL (4.8-10.8) Red Blood Count 3.49 M/UL (4.20-5.40) L Hemoglobin 9.9 G/DL (12.0-16.0) L Hematocrit 29.8 % (37.0-47.0) L Mean Corpuscular Volume 85 FL (80-99) Mean Corpuscular Hemoglobin 28.4 PG (27.0-31.0) Mean Corpuscular Hemoglobin Concent 33.3 G/DL (32.0-36.0) Red Cell Distribution Width 13.3 % (11.6-14.8) Platelet Count 335 K/UL (150-450) Mean Platelet Volume 6.3 FL (6.5-10.1) L Neutrophils (%) (Auto) 56.9 % (45.0-75.0) Lymphocytes (%) (Auto) 24.4 % (20.0-45.0) Monocytes (%) (Auto) 15.1 % (1.0-10.0) H Eosinophils (%) (Auto) 2.5 % (0.0-3.0) Basophils (%) (Auto) 1.1 % (0.0-2.0) Sodium Level 144 mEQ/L (135-145) Potassium Level 3.9 mEQ/L (3.4-4.9) Chloride Level 105 mEQ/L (98-107) Carbon Dioxide Level 24 mEQ/L (20-30) Anion Gap 15 (5-15) Blood Urea Nitrogen 10 mg/dL (7-23) Creatinine 0.7 mg/dL (0.5-0.9) Estimat Glomerular Filtration Rate > 60 mL/min (>60) Glucose Level 89 mg/dL (74-106) Calcium Level 9.1 mg/dL (8.6-10.2) Current Medications Medications (Trade) Dose Ordered Sig/Angeli Route PRN Reason Start Time Stop Time Status Last Admin Dose Admin Acetaminophen (Tylenol) 650 mg Q4H PRN ORAL fever 12/02/16 14:45 12/30/16 22:44 12/02/16 20:39 Albuterol/ Ipratropium (DuoNeb 0.5-3(2.5)mg/3ml) 3 ml EVERY 4 HOURS PRN HHN Shortness of Breath 12/02/16 17:00 12/05/16 22:44 Dextrose (Dextrose 50%) STAT PRN IV Hypoglycemia 12/02/16 22:45 12/30/16 22:44 Ertapenem 1 gm/ Sodium Chloride 55 ml @ 110 mls/hr Q24H IVPB 12/03/16 09:00 12/08/16 08:59 12/04/16 08:33 Heparin Sodium (Porcine) (Heparin 5000 units/ml) 5,000 units EVERY 12 HOURS SUBQ 12/02/16 21:00 12/31/16 08:59 12/04/16 08:38 Insulin Aspart (NovoLOG) BEFORE MEALS AND HS SUBQ 12/02/16 16:30 12/31/16 06:29 12/03/16 20:47 Morphine Sulfate (Morphine Sulfate) 2 mg EVERY 4 HOURS PRN IVP Moderate Pain (Pain Scale 4-6) 12/02/16 17:00 12/07/16 22:44 Nitroglycerin (Ntg) 0.4 mg PRN PRN SL Prn Chest Pain 12/02/16 22:45 12/30/16 22:44 Ondansetron HCl (Zofran) 4 mg Q6H PRN IVP Nausea & Vomiting 12/02/16 16:45 12/30/16 22:44 Polyethylene Glycol (Miralax) 17 gm DAILYPRN PRN ORAL Constipation 12/02/16 22:45 12/30/16 22:44 Temazepam (Restoril) 15 mg HSPRN PRN ORAL Insomnia 12/02/16 22:45 12/07/16 22:44 Zahida Rao M.D. Dec 04, 2016 09:54
[2016-12-04] MEDS ORDERED: NS 275ml ONE (10:24)
--- NOTE | 2016-12-04 10:36 | Pulmonology Progress Note ---
Assessment/Plan Assessment/Plan ASSESSMENT sepsis with bacteremia (E coli ESBL)) complicated UTI with pyelonephritis with E coli ESBL DM HTN, anemia hydronephrosis 2 to prolapsed uterus hypo K PLAN OF CARE [facility] floor abx ID follows blood cx and urine cx + E coli ESBL will need extended treatment for bacteremia with IV abx urology eval appreciated , at bedside uterine prolapse reduced outpt hysterectomy and cystocele repair after cleared from infection BP better BS management with SS of insulin O2 HHN prn CXR negative CT A/P noted , massive bilateral hydro, and evidence of pyelo DVT prophayxlsi monitor HH, at baseline anemia w/p c/w anemia of chronic disease, watch counts, CEA WNL , stool OB negative transfuse prn dc plan home with HH for IV abx vs SNF short term case discussed and evaluated by supervising physician Subjective Allergies: Coded Allergies: No Known Allergies (Unverified , 11/30/16) Subjective denies chest pain, SOB, palpitations sitting in the chair leukocytosis resolved no fever Objective Last 24 Hour Vital Signs Date Time Temp Pulse Resp B/P (MAP) Pulse Ox O2 Delivery O2 Flow Rate FiO2 12/04/16 08:00 98.2 77 16 132/73 96 Room Air 12/04/16 04:00 98.0 75 18 127/75 97 Room Air 12/04/16 00:00 97.9 70 18 125/71 98 Room Air 12/03/16 20:11 91 18 Room Air 12/03/16 20:00 98.4 72 18 132/70 97 Room Air 12/03/16 15:58 98.2 74 18 132/76 96 Room Air 12/03/16 11:55 98.2 73 19 142/64 98 Room Air Objective General Appearance: no acute distress HEENT: normocephalic, atraumatic, anicteric, mucous membranes moist Respiratory/Chest: lungs clear, no respiratory distress, no accessory muscle use Cardiovascular: normal peripheral pulses, normal rate, regular rhythm - SR on tele , no JVD Abdomen: normal bowel sounds, soft, non tender, non distended Genitourinary: normal external genitalia Extremities: no edema, pedal pulses normal Neurologic/Psychiatric: alert, oriented x 3, responsive Musculoskeletal: normal muscle bulk Microbiology Date/Time Source Procedure Growth Status 12/02/16 17:30 Blood Blood Culture - Preliminary NO GROWTH AFTER 24 HOURS Resulted 12/02/16 17:25 Blood Blood Culture - Preliminary NO GROWTH AFTER 24 HOURS Resulted Laboratory Tests 12/04/16 05:50: White Blood Count 6.1, Red Blood Count 3.49L, Hemoglobin 9.9L, Hematocrit 29.8L , Mean Corpuscular Volume 85, Mean Corpuscular Hemoglobin 28.4, Mean Corpuscular Hemoglobin Concent 33.3, Red Cell Distribution Width 13.3, Platelet Count 335, Mean Platelet Volume 6.3L, Neutrophils (%) (Auto) 56.9, Lymphocytes ( %) (Auto) 24.4, Monocytes (%) (Auto) 15.1H, Eosinophils (%) (Auto) 2.5, Basophils (%) (Auto) 1.1, Sodium Level 144, Potassium Level 3.9, Chloride Level 105, Carbon Dioxide Level 24, Anion Gap 15, Blood Urea Nitrogen 10, Creatinine 0.7, Estimat Glomerular Filtration Rate > 60, Glucose Level 89, Calcium Level 9.1 Current Medications Medications (Trade) Dose Ordered Sig/Angeli Route PRN Reason Start Time Stop Time Status Last Admin Dose Admin Acetaminophen (Tylenol) 650 mg Q4H PRN ORAL fever 12/02/16 14:45 12/30/16 22:44 12/02/16 20:39 Albuterol/ Ipratropium (DuoNeb 0.5-3(2.5)mg/3ml) 3 ml EVERY 4 HOURS PRN HHN Shortness of Breath 12/02/16 17:00 12/05/16 22:44 Dextrose (Dextrose 50%) STAT PRN IV Hypoglycemia 12/02/16 22:45 12/30/16 22:44 Ertapenem 1 gm/ Sodium Chloride 55 ml @ 110 mls/hr Q24H IVPB 12/03/16 09:00 12/08/16 08:59 12/04/16 08:33 Heparin Sodium (Porcine) (Heparin 5000 units/ml) 5,000 units EVERY 12 HOURS SUBQ 12/02/16 21:00 12/31/16 08:59 12/04/16 08:38 Insulin Aspart (NovoLOG) BEFORE MEALS AND HS SUBQ 12/02/16 16:30 12/31/16 06:29 12/03/16 20:47 Morphine Sulfate (Morphine Sulfate) 2 mg EVERY 4 HOURS PRN IVP Moderate Pain (Pain Scale 4-6) 12/02/16 17:00 12/07/16 22:44 Nitroglycerin (Ntg) 0.4 mg PRN PRN SL Prn Chest Pain 12/02/16 22:45 12/30/16 22:44 Ondansetron HCl (Zofran) 4 mg Q6H PRN IVP Nausea & Vomiting 12/02/16 16:45 12/30/16 22:44 Polyethylene Glycol (Miralax) 17 gm DAILYPRN PRN ORAL Constipation 12/02/16 22:45 12/30/16 22:44 Temazepam (Restoril) 15 mg HSPRN PRN ORAL Insomnia 12/02/16 22:45 12/07/16 22:44 [facility]City HospitalKait Flower NP Dec 04, 2016 10:36
[2016-12-04 12:00] VITALS: BP 127/69
[2016-12-04 16:00] VITALS: BP 128/70
[2016-12-04 20:00] VITALS: BP 131/75
--- NOTE | 2016-12-04 21:45 | General Progress Note ---
Assessment/Plan Assessment/Plan ASSESSMENT AND PLAN: 1. Leukocytosis, likely secondary to urinary tract infection and bacteremia. She is on IV antibiotics as per ID service and Urology. --> better, fever has resolved 2. Hydronephrosis 2/2 UTI. 3. Anemia, secondary to chronic disease. Workup has been reviewed. Watch counts 4. Pyelonephritis and sepsis, on antibiotics 5. Diabetes mellitus without complications. Continue to monitor. 6. Hypertension. Currently, blood pressure is better controlled. Subjective Constitutional: Reports: no symptoms HEENT: Reports: no symptoms Cardiovascular: Reports: no symptoms Respiratory: Reports: no symptoms Gastrointestinal/Abdominal: Reports: no symptoms Genitourinary: Reports: no symptoms Neurologic/Psychiatric: Reports: no symptoms Endocrine: Reports: no symptoms Hematologic/Lymphatic: Reports: no symptoms Allergies: Coded Allergies: No Known Allergies (Unverified , 11/30/16) Subjective NAD Objective Last 24 Hour Vital Signs Date Time Temp Pulse Resp B/P (MAP) Pulse Ox O2 Delivery O2 Flow Rate FiO2 12/04/16 20:00 98.2 80 20 131/75 97 Room Air 12/04/16 19:48 82 16 Room Air 12/04/16 16:00 97.2 81 15 128/70 100 Room Air 12/04/16 12:00 98.2 81 15 127/69 98 Room Air 12/04/16 08:01 77 16 Room Air 12/04/16 08:00 98.2 77 16 132/73 96 Room Air 12/04/16 04:00 98.0 75 18 127/75 97 Room Air 12/04/16 00:00 97.9 70 18 125/71 98 Room Air Intake and Output 12/04/16 12/05/16 19:00 07:00 # Voids 2 Laboratory Tests 12/04/16 05:50: White Blood Count 6.1, Red Blood Count 3.49L, Hemoglobin 9.9L, Hematocrit 29.8L , Mean Corpuscular Volume 85, Mean Corpuscular Hemoglobin 28.4, Mean Corpuscular Hemoglobin Concent 33.3, Red Cell Distribution Width 13.3, Platelet Count 335, Mean Platelet Volume 6.3L, Neutrophils (%) (Auto) 56.9, Lymphocytes ( %) (Auto) 24.4, Monocytes (%) (Auto) 15.1H, Eosinophils (%) (Auto) 2.5, Basophils (%) (Auto) 1.1, Sodium Level 144, Potassium Level 3.9, Chloride Level 105, Carbon Dioxide Level 24, Anion Gap 15, Blood Urea Nitrogen 10, Creatinine 0.7, Estimat Glomerular Filtration Rate > 60, Glucose Level 89, Calcium Level 9.1 Height (Feet): 5 Height (Inches): 1.00 Weight (Pounds): 120 General Appearance: no apparent distress EENT: normal ENT inspection Neck: normal alignment Cardiovascular: normal rate Respiratory/Chest: no accessory muscle use Abdomen: no organomegaly Edema: no edema noted Pedal (L), no edema noted Pedal (R) Neurologic: alert, oriented x 3, normal mood/affect Skin: warm/dry Timmy Peterson Dec 04, 2016 21:45
[2016-12-05] VITALS: BP 113/67
[2016-12-05 04:00] VITALS: BP 109/61
[2016-12-05] MEDS: NovoLOG Insulin Flexpen SUBQ SCH ×4 (06:30→21:00)
[2016-12-05 06:55] LABS: MEAN CORPUSCULAR HEMOGLOBIN 28.3 PG (27.0-31.0); MEAN CORPUSCULAR HGB CONC 33.3 G/DL (32.0-36.0); MEAN CORPUSCULAR VOLUME 85 FL (80-99); MEAN PLATELET VOLUME 6.5 FL (6.5-10.1); PLATELET COUNT 358 K/UL (150-450); RED BLOOD COUNT 3.59 M/UL (4.20-5.40); RED CELL DISTRIBUTION WIDTH 12.8 % (11.6-14.8); WHITE BLOOD COUNT 5.5 K/UL (4.8-10.8)
[2016-12-05 07:05] LABS: ANION GAP 14 (5-15); CARBON DIOXIDE 25 mEQ/L (20-30); CHLORIDE 102 mEQ/L (98-107); CREATININE 0.6 mg/dL (0.5-0.9); GLOMERULAR FILTRATION RATE > 60 mL/min (>60); HEMOLYSIS 0; POTASSIUM 3.7 mEQ/L (3.4-4.9); SODIUM 141 mEQ/L (135-145)
[2016-12-05 08:00] VITALS: BP 115/70
[2016-12-05 08:31] LABS: BAND NEUTROPHILS % (MANUAL) 0 % (0-8); BASOPHILS % (MANUAL) 1 % (0-2); EOSINOPHILS % (MANUAL) 2 % (0-3); LYMPHOCYTES % (MANUAL) 25 % (20-45); NEUTROPHILS % (MANUAL) 56 % (45-75); PLATELET ESTIMATE ADEQUATE; PLATELET MORPHOLOGY NORMAL; TOTAL CELLS COUNTED 100
[2016-12-05 08:32] LABS: HYPOCHROMASIA 1+
[2016-12-05] MEDS: Ertapenem 1 GM in NS 55 ML IVPB SCH (08:54)
[2016-12-05] MEDS: Heparin 5000 units/ml inj SUBQ SCH ×2 (08:55→21:26)
--- NOTE | 2016-12-05 10:22 | Infectious Diseases Prog Note ---
Assessment/Plan Assessment/Plan A: E. coli sepsis Pyelonephritis Hydronephrosis/ hydroureter Uterine prolapse Anemia P: Continue Ertapenem Consider PO Bactrim @ time of discharge Subjective ROS Limited/Unobtainable: No Respiratory: Reports: no symptoms Cardiovascular: Reports: no symptoms Gastrointestinal/Abdominal: Reports: no symptoms Genitourinary: Reports: no symptoms Neurologic: Reports: no symptoms Allergies: Coded Allergies: No Known Allergies (Unverified , 11/30/16) Objective Vital Signs Last 24 Hour Vital Signs Date Time Temp Pulse Resp B/P (MAP) Pulse Ox O2 Delivery O2 Flow Rate FiO2 12/05/16 08:00 98.1 86 15 115/70 97 Room Air 12/05/16 07:21 86 18 Room Air 12/05/16 04:00 98.4 77 21 109/61 97 Room Air 12/05/16 00:00 98.4 87 19 113/67 98 Room Air 12/04/16 20:00 98.2 80 20 131/75 97 Room Air 12/04/16 19:48 82 16 Room Air 12/04/16 16:00 97.2 81 15 128/70 100 Room Air 12/04/16 12:00 98.2 81 15 127/69 98 Room Air Height (Feet): 5 Height (Inches): 1.00 Weight (Pounds): 120 General Appearance: no acute distress HEENT: mucous membranes moist Respiratory/Chest: lungs clear Cardiovascular: normal rate Abdomen: soft, non tender Extremities: no edema Neurologic/Psychiatric: alert, oriented x 3, responsive Microbiology Date/Time Source Procedure Growth Status 12/02/16 17:30 Blood Blood Culture - Preliminary NO GROWTH AFTER 48 HOURS Resulted 12/02/16 17:25 Blood Blood Culture - Preliminary NO GROWTH AFTER 48 HOURS Resulted Laboratory Tests Test 12/05/16 04:45 White Blood Count 5.5 K/UL (4.8-10.8) Red Blood Count 3.59 M/UL (4.20-5.40) L Hemoglobin 10.2 G/DL (12.0-16.0) L Hematocrit 30.5 % (37.0-47.0) L Mean Corpuscular Volume 85 FL (80-99) Mean Corpuscular Hemoglobin 28.3 PG (27.0-31.0) Mean Corpuscular Hemoglobin Concent 33.3 G/DL (32.0-36.0) Red Cell Distribution Width 12.8 % (11.6-14.8) Platelet Count 358 K/UL (150-450) Mean Platelet Volume 6.5 FL (6.5-10.1) Neutrophils (%) (Auto) % (45.0-75.0) Lymphocytes (%) (Auto) % (20.0-45.0) Monocytes (%) (Auto) % (1.0-10.0) Eosinophils (%) (Auto) % (0.0-3.0) Basophils (%) (Auto) % (0.0-2.0) Differential Total Cells Counted 100 Neutrophils % (Manual) 56 % (45-75) Lymphocytes % (Manual) 25 % (20-45) Monocytes % (Manual) 16 % (1-10) H Eosinophils % (Manual) 2 % (0-3) Basophils % (Manual) 1 % (0-2) Band Neutrophils 0 % (0-8) Platelet Estimate Adequate Platelet Morphology Normal Hypochromasia 1+ Sodium Level 141 mEQ/L (135-145) Potassium Level 3.7 mEQ/L (3.4-4.9) Chloride Level 102 mEQ/L (98-107) Carbon Dioxide Level 25 mEQ/L (20-30) Anion Gap 14 (5-15) Blood Urea Nitrogen 12 mg/dL (7-23) Creatinine 0.6 mg/dL (0.5-0.9) Estimat Glomerular Filtration Rate > 60 mL/min (>60) Glucose Level 89 mg/dL (74-106) Calcium Level 9.0 mg/dL (8.6-10.2) Current Medications Medications (Trade) Dose Ordered Sig/Angeli Route PRN Reason Start Time Stop Time Status Last Admin Dose Admin Acetaminophen (Tylenol) 650 mg Q4H PRN ORAL fever 12/02/16 14:45 12/30/16 22:44 12/02/16 20:39 Albuterol/ Ipratropium (DuoNeb 0.5-3(2.5)mg/3ml) 3 ml EVERY 4 HOURS PRN HHN Shortness of Breath 12/02/16 17:00 12/05/16 22:44 Dextrose (Dextrose 50%) STAT PRN IV Hypoglycemia 12/02/16 22:45 12/30/16 22:44 Ertapenem 1 gm/ Sodium Chloride 55 ml @ 110 mls/hr Q24H IVPB 12/03/16 09:00 12/08/16 08:59 12/05/16 08:54 Heparin Sodium (Porcine) (Heparin 5000 units/ml) 5,000 units EVERY 12 HOURS SUBQ 12/02/16 21:00 12/31/16 08:59 12/05/16 08:55 Insulin Aspart (NovoLOG) BEFORE MEALS AND HS SUBQ 12/02/16 16:30 12/31/16 06:29 12/04/16 20:24 Morphine Sulfate (Morphine Sulfate) 2 mg EVERY 4 HOURS PRN IVP Moderate Pain (Pain Scale 4-6) 12/02/16 17:00 12/07/16 22:44 Nitroglycerin (Ntg) 0.4 mg PRN PRN SL Prn Chest Pain 12/02/16 22:45 12/30/16 22:44 Ondansetron HCl (Zofran) 4 mg Q6H PRN IVP Nausea & Vomiting 12/02/16 16:45 12/30/16 22:44 Polyethylene Glycol (Miralax) 17 gm DAILYPRN PRN ORAL Constipation 12/02/16 22:45 12/30/16 22:44 Temazepam (Restoril) 15 mg HSPRN PRN ORAL Insomnia 12/02/16 22:45 12/07/16 22:44 EMMIE PERRY Dec 05, 2016 10:22
[2016-12-05 12:00] VITALS: BP 129/69
[2016-12-05] MEDS ORDERED: Heparin 2000 units/Ns 1000ml INJ SCH (12:15)
[2016-12-05] MEDS ORDERED: Albuterol/Ipratropium 3ml neb HHN PRN (12:15)
[2016-12-05] MEDS ORDERED: Lidocaine 1% Plain 30 ml INJ SCH (12:15)
[2016-12-05] MEDS ORDERED: Sodium Bicarbonate 50ml Carp IV SCH (12:15)
[2016-12-05] MEDS ORDERED: Morphine Sulfate 2mg/ml Inj IVP PRN (12:15)
--- NOTE | 2016-12-05 12:20 | Pulmonology Progress Note ---
Assessment/Plan Assessment/Plan ASSESSMENT sepsis with bacteremia (E coli ESBL)) complicated UTI with pyelonephritis with E coli ESBL DM HTN, anemia hydronephrosis 2 to prolapsed uterus hypo K PLAN OF CARE [facility] floor abx ID follows blood cx and urine cx + E coli ESBL will need extended treatment for bacteremia with IV abx urology eval appreciated , at bedside uterine prolapse reduced outpt hysterectomy and cystocele repair after cleared from infection BP better BS management with SS of insulin O2 HHN prn CXR negative CT A/P noted , massive bilateral hydro, and evidence of pyelo DVT prophayxlsi monitor HH, at baseline anemia w/p c/w anemia of chronic disease, watch counts, CEA WNL , stool OB negative transfuse prn dc plan home with HH for IV abx vs SNF short term PICC line fro am and then dc after tomorrow will need 10 more doses covering ID for today dr Black - suggested to consider po Bactrim need to clarify with ID on case IV abx vs po Bactrim prior to putting PICC line case discussed and evaluated by supervising physician Subjective Allergies: Coded Allergies: No Known Allergies (Unverified , 11/30/16) Subjective denies chest pain, SOB, palpitations sitting in the chair leukocytosis resolved no fever Objective Last 24 Hour Vital Signs Date Time Temp Pulse Resp B/P (MAP) Pulse Ox O2 Delivery O2 Flow Rate FiO2 12/05/16 08:00 98.1 86 15 115/70 97 Room Air 12/05/16 07:21 86 18 Room Air 12/05/16 04:00 98.4 77 21 109/61 97 Room Air 12/05/16 00:00 98.4 87 19 113/67 98 Room Air 12/04/16 20:00 98.2 80 20 131/75 97 Room Air 12/04/16 19:48 82 16 Room Air 12/04/16 16:00 97.2 81 15 128/70 100 Room Air Objective General Appearance: no acute distress HEENT: normocephalic, atraumatic, anicteric, mucous membranes moist Respiratory/Chest: lungs clear, no respiratory distress, no accessory muscle use Cardiovascular: normal peripheral pulses, normal rate, regular rhythm - SR on tele , no JVD Abdomen: normal bowel sounds, soft, non tender, non distended Genitourinary: normal external genitalia Extremities: no edema, pedal pulses normal Neurologic/Psychiatric: alert, oriented x 3, responsive Musculoskeletal: normal muscle bulk Microbiology Date/Time Source Procedure Growth Status 12/02/16 17:30 Blood Blood Culture - Preliminary NO GROWTH AFTER 48 HOURS Resulted 12/02/16 17:25 Blood Blood Culture - Preliminary NO GROWTH AFTER 48 HOURS Resulted Laboratory Tests 12/05/16 04:45: White Blood Count 5.5, Red Blood Count 3.59L, Hemoglobin 10.2L, Hematocrit 30.5L , Mean Corpuscular Volume 85, Mean Corpuscular Hemoglobin 28.3, Mean Corpuscular Hemoglobin Concent 33.3, Red Cell Distribution Width 12.8, Platelet Count 358, Mean Platelet Volume 6.5, Neutrophils (%) (Auto) , Lymphocytes (%) ( Auto) , Monocytes (%) (Auto) , Eosinophils (%) (Auto) , Basophils (%) (Auto) , Differential Total Cells Counted 100, Neutrophils % (Manual) 56, Lymphocytes % ( Manual) 25, Monocytes % (Manual) 16H, Eosinophils % (Manual) 2, Basophils % ( Manual) 1, Band Neutrophils 0, Platelet Estimate Adequate, Platelet Morphology Normal, Hypochromasia 1+, Sodium Level 141, Potassium Level 3.7, Chloride Level 102, Carbon Dioxide Level 25, Anion Gap 14, Blood Urea Nitrogen 12, Creatinine 0.6, Estimat Glomerular Filtration Rate > 60, Glucose Level 89, Calcium Level 9.0 Current Medications Medications (Trade) Dose Ordered Sig/Angeli Route PRN Reason Start Time Stop Time Status Last Admin Dose Admin Acetaminophen (Tylenol) 650 mg Q4H PRN ORAL fever 12/02/16 14:45 12/30/16 22:44 12/02/16 20:39 Albuterol/ Ipratropium (DuoNeb 0.5-3(2.5)mg/3ml) 3 ml EVERY 4 HOURS PRN HHN Shortness of Breath 12/02/16 17:00 12/05/16 22:44 Dextrose (Dextrose 50%) STAT PRN IV Hypoglycemia 12/02/16 22:45 12/30/16 22:44 Ertapenem 1 gm/ Sodium Chloride 55 ml @ 110 mls/hr Q24H IVPB 12/03/16 09:00 12/08/16 08:59 12/05/16 08:54 Heparin Sodium (Porcine) (Heparin 5000 units/ml) 5,000 units EVERY 12 HOURS SUBQ 12/02/16 21:00 12/31/16 08:59 12/05/16 08:55 Insulin Aspart (NovoLOG) BEFORE MEALS AND HS SUBQ 12/02/16 16:30 12/31/16 06:29 12/04/16 20:24 Morphine Sulfate (Morphine Sulfate) 2 mg EVERY 4 HOURS PRN IVP Moderate Pain (Pain Scale 4-6) 12/02/16 17:00 12/07/16 22:44 Nitroglycerin (Ntg) 0.4 mg PRN PRN SL Prn Chest Pain 12/02/16 22:45 12/30/16 22:44 Ondansetron HCl (Zofran) 4 mg Q6H PRN IVP Nausea & Vomiting 12/02/16 16:45 12/30/16 22:44 Polyethylene Glycol (Miralax) 17 gm DAILYPRN PRN ORAL Constipation 12/02/16 22:45 12/30/16 22:44 Temazepam (Restoril) 15 mg HSPRN PRN ORAL Insomnia 12/02/16 22:45 12/07/16 22:44 [facility]Kait NP Dec 05, 2016 12:20
[2016-12-05] MEDS ORDERED: INVANZ1 GM IVPB (12:21)
--- NOTE | 2016-12-05 13:13 | General Progress Note ---
Assessment/Plan Assessment/Plan ASSESSMENT AND PLAN: 1. Leukocytosis, likely secondary to urinary tract infection and bacteremia. She is on IV antibiotics as per ID service and Urology --> resolved 2. Hydronephrosis 2/2 UTI. 3. Anemia, secondary to chronic disease. Workup has been reviewed. Watch counts 4. Pyelonephritis and sepsis, on antibiotics 5. Diabetes mellitus without complications. Continue to monitor. 6. Hypertension. Currently, blood pressure is better controlled. Subjective Constitutional: Reports: no symptoms HEENT: Reports: no symptoms Cardiovascular: Reports: no symptoms Respiratory: Reports: no symptoms Gastrointestinal/Abdominal: Reports: no symptoms Genitourinary: Reports: no symptoms Neurologic/Psychiatric: Reports: no symptoms Endocrine: Reports: no symptoms Hematologic/Lymphatic: Reports: anemia Allergies: Coded Allergies: No Known Allergies (Unverified , 11/30/16) Subjective sitting in bed, appears comfortable, no complaints Objective Last 24 Hour Vital Signs Date Time Temp Pulse Resp B/P (MAP) Pulse Ox O2 Delivery O2 Flow Rate FiO2 12/05/16 08:00 98.1 86 15 115/70 97 Room Air 12/05/16 07:21 86 18 Room Air 12/05/16 04:00 98.4 77 21 109/61 97 Room Air 12/05/16 00:00 98.4 87 19 113/67 98 Room Air 12/04/16 20:00 98.2 80 20 131/75 97 Room Air 12/04/16 19:48 82 16 Room Air 12/04/16 16:00 97.2 81 15 128/70 100 Room Air Laboratory Tests 12/05/16 04:45: White Blood Count 5.5, Red Blood Count 3.59L, Hemoglobin 10.2L, Hematocrit 30.5L , Mean Corpuscular Volume 85, Mean Corpuscular Hemoglobin 28.3, Mean Corpuscular Hemoglobin Concent 33.3, Red Cell Distribution Width 12.8, Platelet Count 358, Mean Platelet Volume 6.5, Neutrophils (%) (Auto) , Lymphocytes (%) ( Auto) , Monocytes (%) (Auto) , Eosinophils (%) (Auto) , Basophils (%) (Auto) , Differential Total Cells Counted 100, Neutrophils % (Manual) 56, Lymphocytes % ( Manual) 25, Monocytes % (Manual) 16H, Eosinophils % (Manual) 2, Basophils % ( Manual) 1, Band Neutrophils 0, Platelet Estimate Adequate, Platelet Morphology Normal, Hypochromasia 1+, Sodium Level 141, Potassium Level 3.7, Chloride Level 102, Carbon Dioxide Level 25, Anion Gap 14, Blood Urea Nitrogen 12, Creatinine 0.6, Estimat Glomerular Filtration Rate > 60, Glucose Level 89, Calcium Level 9.0 Height (Feet): 5 Height (Inches): 1.00 Weight (Pounds): 120 General Appearance: no apparent distress EENT: normal ENT inspection Neck: normal alignment Cardiovascular: normal peripheral pulses Respiratory/Chest: normal breath sounds Edema: trace edema Skin: normal pigmentation, warm/dry Timmy Peterson Dec 05, 2016 13:13
[2016-12-05 16:00] VITALS: BP 129/69
[2016-12-05 20:00] VITALS: BP 132/73
[2016-12-06] VITALS: BP 110/67
[2016-12-06 04:00] VITALS: BP 118/68
[2016-12-06 06:07] LABS: BASOPHILS % (AUTO) 1.1 % (0.0-2.0); EOSINOPHILS % (AUTO) 2.8 % (0.0-3.0); LYMPHOCYTES % (AUTO) 28.4 % (20.0-45.0); MEAN CORPUSCULAR HEMOGLOBIN 27.9 PG (27.0-31.0); MEAN CORPUSCULAR HGB CONC 32.6 G/DL (32.0-36.0); MEAN CORPUSCULAR VOLUME 86 FL (80-99); MEAN PLATELET VOLUME 6.6 FL (6.5-10.1); MONOCYTES % (AUTO) 15.5 % (1.0-10.0); NEUTROPHILS % (AUTO) 52.2 % (45.0-75.0); PLATELET COUNT 380 K/UL (150-450); RED BLOOD COUNT 3.73 M/UL (4.20-5.40); RED CELL DISTRIBUTION WIDTH 12.8 % (11.6-14.8); WHITE BLOOD COUNT 5.2 K/UL (4.8-10.8)
[2016-12-06 06:20] LABS: ANION GAP 14 (5-15); CALCIUM 8.8 mg/dL (8.6-10.2); CARBON DIOXIDE 25 mEQ/L (20-30); CHLORIDE 101 mEQ/L (98-107); CREATININE 0.6 mg/dL (0.5-0.9); GLOMERULAR FILTRATION RATE > 60 mL/min (>60); HEMOLYSIS 0; POTASSIUM 3.7 mEQ/L (3.4-4.9); SODIUM 140 mEQ/L (135-145)
[2016-12-06] MEDS: NovoLOG Insulin Flexpen SUBQ SCH ×4 (06:30→20:47)
[2016-12-06 08:24] VITALS: BP 108/70
[2016-12-06] MEDS: Dyna-Hex 2% Top Sol 2oz TOPIC SCH (09:00)
[2016-12-06] MEDS: Ertapenem 1 GM in NS 55 ML IVPB SCH (09:30)
[2016-12-06] MEDS: Heparin 5000 units/ml inj SUBQ SCH ×2 (09:31→20:49)
--- NOTE | 2016-12-06 11:42 | Infectious Diseases Prog Note ---
Assessment/Plan Assessment/Plan 61 y/o female with: // Complicated ESBL+ E.coli UTI / pyelonephritis with bacteremia - repeat BCx NTD - CT A/P: Massive bilateral hydronephrosis and bilateral hydroureter. Some stranding of the bilateral perinephric and periureteral fat, could indicate superimposed infection. Nonspecific prominent para-aortic, paracaval, left inguinal nodes // Sepsis SP // Leukocytosis - resolved // Fever - resolved // Uterine prolapse SP manual reduction by urology // NKDA // Full Code PLAN: - Continue invanz d# 4 / for ESBL , ok to DC pt w cont of AB Rx (12/03 3d Cefepime) ( 12/02 SP IV vancomycin d# 2 - monitor CBC, temperatures - monitor BMP - outpt internal medicine physician eval for possible hysterectomy - DC planning after PICC Subjective Allergies: Coded Allergies: No Known Allergies (Unverified , 11/30/16) Objective Vital Signs Last 24 Hour Vital Signs Date Time Temp Pulse Resp B/P (MAP) Pulse Ox O2 Delivery O2 Flow Rate FiO2 12/06/16 08:24 98.1 85 19 108/70 96 Room Air 12/06/16 07:40 82 18 Room Air 12/06/16 04:00 97.9 72 17 118/68 96 Room Air 12/06/16 00:00 97.8 73 17 110/67 96 Room Air 12/05/16 20:00 98.1 74 18 132/73 96 Room Air 12/05/16 19:00 89 18 Room Air 12/05/16 16:00 98.1 74 15 129/69 94 Room Air 12/05/16 12:00 98.1 74 15 129/69 94 Room Air Height (Feet): 5 Height (Inches): 1.00 Weight (Pounds): 120 HEENT: anicteric Respiratory/Chest: normal breath sounds Cardiovascular: regular rhythm Abdomen: no organomegaly Laboratory Tests Test 12/06/16 04:30 White Blood Count 5.2 K/UL (4.8-10.8) Red Blood Count 3.73 M/UL (4.20-5.40) L Hemoglobin 10.4 G/DL (12.0-16.0) L Hematocrit 31.9 % (37.0-47.0) L Mean Corpuscular Volume 86 FL (80-99) Mean Corpuscular Hemoglobin 27.9 PG (27.0-31.0) Mean Corpuscular Hemoglobin Concent 32.6 G/DL (32.0-36.0) Red Cell Distribution Width 12.8 % (11.6-14.8) Platelet Count 380 K/UL (150-450) Mean Platelet Volume 6.6 FL (6.5-10.1) Neutrophils (%) (Auto) 52.2 % (45.0-75.0) Lymphocytes (%) (Auto) 28.4 % (20.0-45.0) Monocytes (%) (Auto) 15.5 % (1.0-10.0) H Eosinophils (%) (Auto) 2.8 % (0.0-3.0) Basophils (%) (Auto) 1.1 % (0.0-2.0) Sodium Level 140 mEQ/L (135-145) Potassium Level 3.7 mEQ/L (3.4-4.9) Chloride Level 101 mEQ/L (98-107) Carbon Dioxide Level 25 mEQ/L (20-30) Anion Gap 14 (5-15) Blood Urea Nitrogen 12 mg/dL (7-23) Creatinine 0.6 mg/dL (0.5-0.9) Estimat Glomerular Filtration Rate > 60 mL/min (>60) Glucose Level 89 mg/dL (74-106) Calcium Level 8.8 mg/dL (8.6-10.2) Current Medications Medications (Trade) Dose Ordered Sig/Angeli Route PRN Reason Start Time Stop Time Status Last Admin Dose Admin Acetaminophen (Tylenol) 650 mg Q4H PRN ORAL fever 12/02/16 14:45 12/30/16 22:44 12/02/16 20:39 Albuterol/ Ipratropium (DuoNeb 0.5-3(2.5)mg/3ml) 3 ml Q4H PRN HHN Shortness of Breath 12/05/16 12:15 12/10/16 12:14 Chlorhexidine Gluconate (Mervat-Hex 2%) 1 applic DAILY TOPIC 12/06/16 09:00 01/05/17 08:59 Dextrose (Dextrose 50%) STAT PRN IV Hypoglycemia 12/02/16 22:45 12/30/16 22:44 Ertapenem 1 gm/ Sodium Chloride 55 ml @ 110 mls/hr Q24H IVPB 12/03/16 09:00 12/08/16 08:59 12/06/16 09:30 Heparin Sodium (Porcine) (Heparin 5000 units/ml) 5,000 units EVERY 12 HOURS SUBQ 12/02/16 21:00 12/31/16 08:59 12/06/16 09:31 Insulin Aspart (NovoLOG) BEFORE MEALS AND HS SUBQ 12/02/16 16:30 12/31/16 06:29 12/05/16 16:58 Morphine Sulfate (Morphine Sulfate) 2 mg Q4H PRN IVP Moderate Pain (Pain Scale 4-6) 12/05/16 12:15 12/12/16 12:14 Nitroglycerin (Ntg) 0.4 mg PRN PRN SL Prn Chest Pain 12/02/16 22:45 12/30/16 22:44 Ondansetron HCl (Zofran) 4 mg Q6H PRN IVP Nausea & Vomiting 12/02/16 16:45 12/30/16 22:44 Polyethylene Glycol (Miralax) 17 gm DAILYPRN PRN ORAL Constipation 12/02/16 22:45 12/30/16 22:44 Temazepam (Restoril) 15 mg HSPRN PRN ORAL Insomnia 12/05/16 12:15 12/10/16 12:14 GIANA CAROLINA M.D. Dec 06, 2016 11:42
[2016-12-06 12:00] VITALS: BP 140/73
--- NOTE | 2016-12-06 15:33 | Pulmonology Progress Note ---
Assessment/Plan Problems: (1) Sepsis (2) Pyelonephritis (3) Diabetes mellitus (4) Hypertension Assessment/Plan improving continue current meds symptomatic treatment dc planning in progress Subjective Constitutional: Reports: no symptoms HEENT: Repors: no symptoms Allergies: Coded Allergies: No Known Allergies (Unverified , 11/30/16) Objective Last 24 Hour Vital Signs Date Time Temp Pulse Resp B/P (MAP) Pulse Ox O2 Delivery O2 Flow Rate FiO2 12/06/16 12:00 98.4 75 18 140/73 95 Room Air 12/06/16 08:24 98.1 85 19 108/70 96 Room Air 12/06/16 07:40 82 18 Room Air 12/06/16 04:00 97.9 72 17 118/68 96 Room Air 12/06/16 00:00 97.8 73 17 110/67 96 Room Air 12/05/16 20:00 98.1 74 18 132/73 96 Room Air 12/05/16 19:00 89 18 Room Air 12/05/16 16:00 98.1 74 15 129/69 94 Room Air Intake and Output 12/06/16 12/07/16 19:00 07:00 Intake Total 360 ml Output Total 300 ml Balance 60 ml Intake Oral 360 ml Output Urine Total 300 ml General Appearance: WD/WN HEENT: normocephalic, atraumatic Respiratory/Chest: chest wall non-tender, no respiratory distress Breasts: no masses Cardiovascular: normal rate, regular rhythm Abdomen: normal bowel sounds, soft, non tender Genitourinary: normal external genitalia Extremities: no cyanosis Laboratory Tests 12/06/16 04:30: White Blood Count 5.2, Red Blood Count 3.73L, Hemoglobin 10.4L, Hematocrit 31.9L , Mean Corpuscular Volume 86, Mean Corpuscular Hemoglobin 27.9, Mean Corpuscular Hemoglobin Concent 32.6, Red Cell Distribution Width 12.8, Platelet Count 380, Mean Platelet Volume 6.6, Neutrophils (%) (Auto) 52.2, Lymphocytes (% ) (Auto) 28.4, Monocytes (%) (Auto) 15.5H, Eosinophils (%) (Auto) 2.8, Basophils (%) (Auto) 1.1, Sodium Level 140, Potassium Level 3.7, Chloride Level 101, Carbon Dioxide Level 25, Anion Gap 14, Blood Urea Nitrogen 12, Creatinine 0.6, Estimat Glomerular Filtration Rate > 60, Glucose Level 89, Calcium Level 8.8 Current Medications Medications (Trade) Dose Ordered Sig/Angeli Route PRN Reason Start Time Stop Time Status Last Admin Dose Admin Acetaminophen (Tylenol) 650 mg Q4H PRN ORAL fever 12/02/16 14:45 12/30/16 22:44 12/02/16 20:39 Albuterol/ Ipratropium (DuoNeb 0.5-3(2.5)mg/3ml) 3 ml Q4H PRN HHN Shortness of Breath 12/05/16 12:15 12/10/16 12:14 Chlorhexidine Gluconate (Mervat-Hex 2%) 1 applic DAILY TOPIC 12/06/16 09:00 01/05/17 08:59 Dextrose (Dextrose 50%) STAT PRN IV Hypoglycemia 12/02/16 22:45 12/30/16 22:44 Ertapenem 1 gm/ Sodium Chloride 55 ml @ 110 mls/hr Q24H IVPB 12/03/16 09:00 12/08/16 08:59 12/06/16 09:30 Heparin Sodium (Porcine) (Heparin 5000 units/ml) 5,000 units EVERY 12 HOURS SUBQ 12/02/16 21:00 12/31/16 08:59 12/06/16 09:31 Insulin Aspart (NovoLOG) BEFORE MEALS AND HS SUBQ 12/02/16 16:30 12/31/16 06:29 12/05/16 16:58 Morphine Sulfate (Morphine Sulfate) 2 mg Q4H PRN IVP Moderate Pain (Pain Scale 4-6) 12/05/16 12:15 12/12/16 12:14 Nitroglycerin (Ntg) 0.4 mg PRN PRN SL Prn Chest Pain 12/02/16 22:45 12/30/16 22:44 Ondansetron HCl (Zofran) 4 mg Q6H PRN IVP Nausea & Vomiting 12/02/16 16:45 12/30/16 22:44 Polyethylene Glycol (Miralax) 17 gm DAILYPRN PRN ORAL Constipation 12/02/16 22:45 12/30/16 22:44 Temazepam (Restoril) 15 mg HSPRN PRN ORAL Insomnia 12/05/16 12:15 12/10/16 12:14 TRINA VÁSQUEZ Dec 06, 2016 15:33
[2016-12-06 16:00] VITALS: BP 125/80
--- NOTE | 2016-12-06 16:31 | Diagnostic Imaging Report ---
Indications: Needs long-term IV access Technique: Ultrasound confirms patent compressible left basilic vein. Total sterile technique, including sterile probe cover and sterile gel, hat, mask,, sterile gown, large sterile drape, and preparation with 2% chlorhexidine utilized. Local anesthesia with 1% lidocaine. Under real-time ultrasound guidance, puncture basilic vein using 21-gauge needle, documented and archived, passage 0.018 guidewire under direct fluoroscopy, which was used to determine appropriate catheter length, exchange for 5 Maltese peel-away sheath. 5 [place] Bard dual-lumen power PICC cut to 42 cm. It was inserted through the peel-away sheath. Peel-away sheath and guidewire removed. Catheter fixed to the skin. Both catheter ports aspirated and flushed. Patient tolerated procedure well, without immediate complication. Digital radiograph documents satisfactory catheter tip position, at the cavoatrial junction. Total fluoroscopy time 0.2 minutes. Total dose area product 5 dGycm2 Impression: Successful placement of left arm PICC under sonographic and fluoroscopic guidance, as described above.
[2016-12-06] MEDS ORDERED: Tubing IV Secondary IV ONE (16:51)
--- NOTE | 2016-12-06 18:28 | General Progress Note ---
Assessment/Plan Assessment/Plan ASSESSMENT AND PLAN: 1. Leukocytosis, likely secondary to urinary tract infection and bacteremia. She is on IV antibiotics as per ID service and Urology --> resolved 2. Hydronephrosis 2/2 UTI. 3. Anemia, secondary to chronic disease. Workup has been reviewed. Watch counts --> currently stable 4. Pyelonephritis and sepsis, on antibiotics 5. Diabetes mellitus without complications. Continue to monitor. 6. Hypertension. Currently, blood pressure is better controlled. Subjective Constitutional: Reports: no symptoms HEENT: Reports: no symptoms Cardiovascular: Reports: no symptoms Respiratory: Reports: no symptoms Gastrointestinal/Abdominal: Reports: no symptoms Genitourinary: Reports: no symptoms Neurologic/Psychiatric: Reports: no symptoms Endocrine: Reports: no symptoms Hematologic/Lymphatic: Reports: anemia Allergies: Coded Allergies: No Known Allergies (Unverified , 11/30/16) Subjective NAD Objective Last 24 Hour Vital Signs Date Time Temp Pulse Resp B/P (MAP) Pulse Ox O2 Delivery O2 Flow Rate FiO2 12/06/16 12:00 98.4 75 18 140/73 95 Room Air 12/06/16 08:24 98.1 85 19 108/70 96 Room Air 12/06/16 07:40 82 18 Room Air 12/06/16 04:00 97.9 72 17 118/68 96 Room Air 12/06/16 00:00 97.8 73 17 110/67 96 Room Air 12/05/16 20:00 98.1 74 18 132/73 96 Room Air 12/05/16 19:00 89 18 Room Air Intake and Output 12/06/16 12/07/16 19:00 07:00 Intake Total 415 ml Output Total 300 ml Balance 115 ml Intake Oral 360 ml IV Total 55 ml Output Urine Total 300 ml Laboratory Tests 12/06/16 04:30: White Blood Count 5.2, Red Blood Count 3.73L, Hemoglobin 10.4L, Hematocrit 31.9L , Mean Corpuscular Volume 86, Mean Corpuscular Hemoglobin 27.9, Mean Corpuscular Hemoglobin Concent 32.6, Red Cell Distribution Width 12.8, Platelet Count 380, Mean Platelet Volume 6.6, Neutrophils (%) (Auto) 52.2, Lymphocytes (% ) (Auto) 28.4, Monocytes (%) (Auto) 15.5H, Eosinophils (%) (Auto) 2.8, Basophils (%) (Auto) 1.1, Sodium Level 140, Potassium Level 3.7, Chloride Level 101, Carbon Dioxide Level 25, Anion Gap 14, Blood Urea Nitrogen 12, Creatinine 0.6, Estimat Glomerular Filtration Rate > 60, Glucose Level 89, Calcium Level 8.8 Height (Feet): 5 Height (Inches): 1.00 Weight (Pounds): 120 General Appearance: no apparent distress EENT: normal ENT inspection Neck: normal alignment Cardiovascular: normal rate Respiratory/Chest: no accessory muscle use Abdomen: non tender Edema: 1+ Pedal (L), 1+ Pedal (R) Neurologic: optic fibre drawer II-XII grossly normal Skin: warm/dry Timmy Peterson Dec 06, 2016 18:28
[2016-12-06 20:00] VITALS: BP 133/76
[2016-12-07] VITALS: BP 118/70
[2016-12-07 04:05] VITALS: BP 110/64
[2016-12-07] MEDS: NovoLOG Insulin Flexpen SUBQ SCH ×2 (06:16→11:30)
[2016-12-07 08:00] VITALS: BP 104/65
[2016-12-07] MEDS: Ertapenem 1 GM in NS 55 ML IVPB SCH (08:33)
[2016-12-07] MEDS: Heparin 5000 units/ml inj SUBQ SCH (08:35)
[2016-12-07] MEDS: Dyna-Hex 2% Top Sol 2oz TOPIC SCH (08:36)
[2016-12-07 12:00] VITALS: BP 117/82
[2016-12-07] MEDS ORDERED: NS 275ml ONE (14:17)
[2016-12-07] MEDS ORDERED: Tubing IV Secondary IV ONE (14:17)
--- NOTE | 2016-12-07 16:55 | General Progress Note ---
Assessment/Plan Assessment/Plan ASSESSMENT AND PLAN: 1. Leukocytosis, likely secondary to urinary tract infection and bacteremia. She is on IV antibiotics as per ID service and Urology --> resolved 2. Hydronephrosis 2/2 UTI. 3. Anemia, secondary to chronic disease. Workup has been reviewed. Watch counts --> currently stable 4. Pyelonephritis and sepsis, on antibiotics 5. Diabetes mellitus without complications. Continue to monitor. 6. Hypertension. Currently, blood pressure is better controlled. Subjective Constitutional: Reports: no symptoms HEENT: Reports: no symptoms Cardiovascular: Reports: no symptoms Respiratory: Reports: no symptoms Gastrointestinal/Abdominal: Reports: no symptoms Genitourinary: Reports: no symptoms Neurologic/Psychiatric: Reports: no symptoms Endocrine: Reports: no symptoms Hematologic/Lymphatic: Reports: no symptoms Allergies: Coded Allergies: No Known Allergies (Unverified , 11/30/16) Subjective NAD Objective Last 24 Hour Vital Signs Date Time Temp Pulse Resp B/P (MAP) Pulse Ox O2 Delivery O2 Flow Rate FiO2 12/07/16 12:00 98.4 89 16 117/82 98 Room Air 12/07/16 08:00 97.8 84 18 104/65 99 Room Air 12/07/16 07:33 75 18 Room Air 12/07/16 04:05 97.8 74 19 110/64 96 Room Air 12/07/16 00:00 97.8 80 19 118/70 96 Room Air 12/06/16 20:19 79 18 Room Air 12/06/16 20:00 98.2 82 20 133/76 96 Room Air Height (Feet): 5 Height (Inches): 1.00 Weight (Pounds): 120 General Appearance: no apparent distress EENT: normal ENT inspection Neck: normal alignment Cardiovascular: normal rate Respiratory/Chest: normal breath sounds Neurologic: side sawyer II-XII grossly normal Timmy Peterson Dec 07, 2016 16:55
--- NOTE | 2016-12-07 22:09 | Pulmonology Progress Note ---
Assessment/Plan Problems: (1) Sepsis (2) Pyelonephritis (3) Diabetes mellitus (4) Hypertension Assessment/Plan improving continue current meds symptomatic treatment dc planning in progress Subjective ROS Limited/Unobtainable: No Constitutional: Reports: no symptoms HEENT: Repors: no symptoms Respiratory: Reports: no symptoms Allergies: Coded Allergies: No Known Allergies (Unverified , 11/30/16) Objective Last 24 Hour Vital Signs Date Time Temp Pulse Resp B/P (MAP) Pulse Ox O2 Delivery O2 Flow Rate FiO2 12/07/16 12:00 98.4 89 16 117/82 98 Room Air 12/07/16 08:00 97.8 84 18 104/65 99 Room Air 12/07/16 07:33 75 18 Room Air 12/07/16 04:05 97.8 74 19 110/64 96 Room Air 12/07/16 00:00 97.8 80 19 118/70 96 Room Air General Appearance: WD/WN HEENT: normocephalic, atraumatic Respiratory/Chest: chest wall non-tender, lungs clear Cardiovascular: normal peripheral pulses, normal rate Abdomen: normal bowel sounds, soft, non tender Genitourinary: normal external genitalia Extremities: no cyanosis Skin: no lesions Neurologic/Psychiatric: bottom finisher II-XII grossly normal, no motor/sensory deficits TRINA VÁSQUEZ Dec 07, 2016 22:09
--- NOTE | 2016-12-09 12:39 | Discharge Summary ---
Discharge Summary Hospital Course Date of Admission Nov 30, 2016 at 20:22 Date of Discharge Dec 07, 2016 at 14:18 Admitting Diagnosis SEPSIS HPI Crystal Carlos is a 61 year old female who was admitted on Nov 30, 2016 at 20:22 for Sepsis Hospital Course [id number] Discharge Discharge Disposition Patient was discharged to Home with Home Health(06) Discharge Diagnoses: Cadence Baca NP Dec 09, 2016 12:39
--- NOTE | 2016-12-10 02:30 | Discharge Summary 2 SIG ---
DATE OF ADMISSION: 11/30/2016 DATE OF DISCHARGE: 12/07/2016 CONSULTANTS: 1. Timmy Peterson M.D. 2. Gennaro Hester M.D. 3. Gerson Lopez M.D. Brief Hospital Course: The patient is a 61-year-old female with history of diabetes mellitus and hypertension, presented to ED complaining of fever. On evaluation at ED, temperature was 100.6 degrees. Urine WBC was 30 to 40 and urine RBC 15 to 20 with 3+ leukocyte esterase and positive nitrite. CT of the abdomen and pelvis done showed massive bilateral hydronephrosis with bilateral hydroureter. There was a noted unusual anatomy of the bladder and distal ureter with suggestion of collapse of the bladder floor, which could be causing extrinsic compression of the ureters. There was stranding in the bilateral perinephric and periureteral fat, which could indicate superimposed infection. The patient was pancultured and was started empirically on cefepime. She was seen by urologist. The patient has a history of vaginal prolapse, initially treated with a pessary, but later removed secondary to urinary retention. Since that time, she has not followed up. On physical examination, uterus was prolapsed and is likely compressing both ureters causing hydroureteronephrosis. She was recommended need to be treated for her current infection and was advised need to follow up with contracted Gynecology for a simple hysterectomy and a concomitant cystocele repair. Urine culture showed growth of ESBL E. coli. Blood culture showed growth of the same organism. Cefepime was discontinued and was given Invanz. She had an episode of leukocytosis with WBC 20.9. Repeat blood cultures did not isolate any growth. Anemia workup done showed anemia secondary to chronic disease. She was continued on her blood pressure medications. PICC line was inserted to the left arm and the patient was discharged home to continue IV antibiotic for 10 days. FINAL DIAGNOSES: 1. Complicated extended spectrum beta-lactamases positive Escherichia coli urinary tract infection/pyelonephritis with bacteremia. 2. Sepsis. 3. Uterine prolapse status post manual reduction. 4. Anemia of chronic disease. 5. Diabetes mellitus. 6. Hypertension. 7. Hypokalemia. Discharge Disposition: The patient was discharged to home with home health for home intravenous antibiotic infusion. Discharge Medications: Continue ertapenem for 10 more days 1 g intravenously q.24 hours. Jayla Novak M.D. I have been assigned to dictate discharge summary on this account and I was not involved in the patient's management. Cadence Baca N.P. DR: WILFREDO JOB#: [id number] CC: MAURICIO
== END 2016-12-07 14:18 | disposition home or self-care (01) | DRG 720 ==
LOC: EDBD 19:46 → EMR 20:05 → 2E 20:22 → EDBEDREQ 20:26 → 2E 22:44 → 4E 12-02 14:16
PROC: 02HV33Z Insertion of Infusion Device into Superior Vena Cava, Percutaneous Approach (ICD-10-PCS; principal; 2016-12-05)
DX: A41.9 Sepsis, unspecified organism (principal); I10 Essential (primary) hypertension; N12 Tubulo-interstitial nephritis, not specified as acute or chronic; N13.30 Unspecified hydronephrosis; E11.9 Type 2 diabetes mellitus without complications; B96.20 Unspecified Escherichia coli [E. coli] as the cause of diseases classified elsewhere; N11.1 Chronic obstructive pyelonephritis; Z79.84 Long term (current) use of oral hypoglycemic drugs; Z16.12 Extended spectrum beta lactamase (ESBL) resistance; E87.6 Hypokalemia; E78.00 Pure hypercholesterolemia, unspecified; N81.10 Cystocele, unspecified; D63.8 Anemia in other chronic diseases classified elsewhere; N81.4 Uterovaginal prolapse, unspecified
CPT/HCPCS: 36415; 36569; 71010; 74177; 76937; 80048; 80053; 80300; 81003; 82247; 82270; 82378; 82550; 82553; 82607; 82728; 82746; 82962; 83090; 83540; 83550; 83605; 83615; 83690; 83735; 84100; 84165; 84443; 84550; 85007; 85025; 85044; 85060; 85384; 85610; 85651; 85730; 87040; 87081; 87086; 87181; 93005; 94664; 99285; J1815; J8499

== ENCOUNTER 2016-12-26 16:31 | Inpatient (IN) | payer MEDICAID ==
[~2016-12-26] VITALS: Ht 157.5 cm; Wt 56.7 kg
[~2016-12-26 16:31] MED LIST changes: +AZITHROMYC200 MG/5 M ORAL; +INVANZ1 GM IVPB; +cholesterol med
[2016-12-26 16:45] VITALS: BP 140/53
--- NOTE | 2016-12-26 16:59 | Emergency Room Report ---
History of Present Illness General Chief Complaint: Flu Like Symptoms Source: Patient Present Illness HPI 61YOF walk-in with 1 day of fever/chills, left sided abd pain, nausea/vomiting x1 Denies sick contacts Denies chest pain, SOB, urinary complaints, back pain Was admitted last month Nov 2016 for sepsis thought d/t UTI/E.Coli. Blood Cx were negative X2. ESBL pyelo Was on Invanz Had bilateral pyelo, urinary prolapse Was recommended for outpatient hysterctomy - did not happen Allergies: Coded Allergies: No Known Allergies (Unverified , 11/30/16) Patient History Past Medical History: DM, HTN Last Menstrual Period: na Nursing Documentation-PMH Past Medical History: No History, Except For Hx Cardiac Problems: Yes Hx Hypertension: Yes Hx Diabetes: Yes Hx Cancer: No Hx Gastrointestinal Problems: No Hx Neurological Problems: No Review of Systems All Other Systems: negative except mentioned in HPI Physical Exam Vital Signs Date Time Temp Pulse Resp B/P (MAP) Pulse Ox O2 Delivery O2 Flow Rate FiO2 12/26/16 16:35 100.4 123 20 138/55 96 Room Air Sp02 EP Interpretation: reviewed, normal General Appearance: normal inspection, well appearing, no apparent distress, alert, GCS 15, non-toxic Head: normocephalic, atraumatic ENT: normal ENT inspection, hearing grossly normal, normal voice Neck: normal inspection, full range of motion, supple, no bony tend Respiratory: normal inspection, lungs clear, normal breath sounds, no respiratory distress, no retraction, no wheezing Cardiovascular #1: regular rate, rhythm, no edema Gastrointestinal: normal inspection, normal bowel sounds, non tender, soft, no guarding, no hernia Genitourinary: no CVA tenderness, CVA tenderness (L) Musculoskeletal: normal inspection, normal range of motion, Avani's Sign negative Neurologic: normal inspection, alert, oriented x3, responsive, 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, speech normal Psychiatric: normal inspection, judgement/insight normal, mood/affect normal Skin: normal inspection, normal color, no rash Medical Decision Making Diagnostic Impression: Primary Impression: Abdominal pain Qualified Codes: R10.12 - Left upper quadrant pain Additional Impressions: Sepsis Qualified Codes: A41.9 - Sepsis, unspecified organism UTI (urinary tract infection) Qualified Codes: N30.01 - Acute cystitis with hematuria Pyelonephritis ER Course VS with tachycardia, fever Sepsis possible Recent ESBL, pyelo Blood, Urine Cx sent/pending Restarted on Invanz which ID was giving during recent hospitalization Given 30cc/kg bolus Labs: Mild Leuks. Normal Lactate. UA infected. ?recurrent pyelo from EBSL from last month possible Not sick appearing. otherwise stable vitals Endorsed to Dr Novak 645pm for tele admit EKG Diagnostic Results Rate: tachycardiac Rhythm: NSR ST Segments: no acute changes ASA given to the pt in ED: No Rhythm Strip Diag. Results EP Interpretation: yes Rate: 105 Rhythm: NSR, no PVC's, no ectopy Chest X-Ray Diagnostic Results Chest X-Ray Diagnostic Results : Chest X-Ray Ordered: Yes # of Views/Limited/Complete: 1 View Indication: Other - Sepsis EP Interpretation: Yes Interpretation: no consolidation, no effusion, no pneumothorax, no acute cardiopulmonary disease Impression: No acute disease Electronically Signed by: Dr Gil Thayer MD Last Vital Signs Date Time Temp Pulse Resp B/P (MAP) Pulse Ox O2 Delivery O2 Flow Rate FiO2 12/26/16 16:35 100.4 123 20 138/55 96 Room Air Status: improved Disposition: ADMITTED INPATIENT Condition: Serious GIL THAYER M.D. Dec 26, 2016 16:59
[2016-12-26 17:42] LABS: MEAN CORPUSCULAR HEMOGLOBIN 27.8 PG (27.0-31.0); MEAN CORPUSCULAR HGB CONC 31.8 G/DL (32.0-36.0); MEAN CORPUSCULAR VOLUME 88 FL (80-99); MEAN PLATELET VOLUME 6.8 FL (6.5-10.1); PLATELET COUNT 198 K/UL (150-450); RED BLOOD COUNT 3.41 M/UL (4.20-5.40); RED CELL DISTRIBUTION WIDTH 14.5 % (11.6-14.8); WHITE BLOOD COUNT 11.5 K/UL (4.8-10.8)
[2016-12-26 17:44] LABS: APPEARANCE,URINE SLIGHTLY CLOUDY; KETONES,URINE NEGATIVE (NEGATIVE); LEUKOCYTE ESTERASE ,URINE 3+ (NEGATIVE); NITRITE,URINE NEGATIVE (NEGATIVE); PH,URINE 7 (4.5-8.0); PROTEIN,URINE 2+ (NEGATIVE); UROBILINOGEN,URINE NORMAL MG/DL (0.0-1.0)
[2016-12-26] MEDS ORDERED: Ertapenem (INVanz) 1gm Inj ONE (17:59)
[2016-12-26] MEDS ORDERED: Ertapenem 1 GM in NS 55 ML IV ONE (18:00)
[2016-12-26 18:04] LABS: BACTERIA,URINE MANY /HPF; SQUAMOUS EPITHELIAL CELL,UR FEW /LPF (NONE/OCC); WBC,URINE TNTC /HPF (0 - 2)
[2016-12-26 18:05] LABS: NEUTROPHILS % (MANUAL) 80 % (45-75); TOTAL CELLS COUNTED 100
[2016-12-26 18:06] LABS: ALANINE AMINOTRANSFERASE 16 U/L (12-78); ALBUMIN/GLOBULIN RATIO 0.7 (1.0-2.7); ANION GAP 11 (5-15); ASPARTATE AMINO TRANSFERASE 15 U/L (15-37); CALCIUM 8.9 MG/DL (8.5-10.1); CARBON DIOXIDE 25 MMOL/L (21-32); CHLORIDE 106 MMOL/L (98-107); CKMB < 0.5 NG/ML (0.0-3.6); LYMPHOCYTES % (MANUAL) 11 % (20-45); POTASSIUM 3.3 MMOL/L (3.5-5.1); SODIUM 142 MMOL/L (136-145); TOTAL PROTEIN 7.8 G/DL (6.4-8.2)
[2016-12-26 18:07] LABS: BAND NEUTROPHILS % (MANUAL) 0 % (0-8); BASOPHILS % (MANUAL) 0 % (0-2); EOSINOPHILS % (MANUAL) 0 % (0-3); PLATELET ESTIMATE ADEQUATE; PLATELET MORPHOLOGY NORMAL
[2016-12-26 18:08] LABS: HYPOCHROMASIA OCCASIONAL
[2016-12-26 18:26] LABS: BILIRUBIN,DIRECT 0.3 MG/DL (0.0-0.3)
[2016-12-26 18:30] VITALS: BP 112/55
[2016-12-26] MEDS ORDERED: NKM (18:56)
[2016-12-26] MEDS ORDERED: Morphine Sulfate 2mg/ml Inj IVP PRN (19:15)
[2016-12-26] MEDS ORDERED: Miralax 17gm pkt ORAL PRN (19:15)
[2016-12-26] MEDS ORDERED: Albuterol/Ipratropium 3ml neb HHN PRN (19:15)
[2016-12-26] MEDS ORDERED: Nitroglycerin Subl 0.4mg tab SL PRN (19:30)
[2016-12-26 20:20] VITALS: BP 110/59
[2016-12-26] MEDS ORDERED: Vancomycin 1250mg/D5W 250ml IVPB ONE (20:30)
[2016-12-26] MEDS: Heparin 5000 units/ml inj SUBQ SCH (21:37)
[2016-12-26] MEDS: NovoLOG Insulin Flexpen SUBQ SCH (21:39)
[2016-12-27] VITALS (7 sets, daily range): BP systolic 105–132; BP diastolic 55–72
[2016-12-27] MEDS: Cefepime HCl 2 GM in D5W 110 ML IV SCH ×2 (00:30→10:37)
[2016-12-27] MEDS: NovoLOG Insulin Flexpen SUBQ SCH ×3 (06:23→21:00)
[2016-12-27 08:53] LABS: BASOPHILS % (AUTO) 0.4 % (0.0-2.0); EOSINOPHILS % (AUTO) 1.1 % (0.0-3.0); LYMPHOCYTES % (AUTO) 10.4 % (20.0-45.0); MEAN CORPUSCULAR HEMOGLOBIN 28.5 PG (27.0-31.0); MEAN CORPUSCULAR HGB CONC 32.5 G/DL (32.0-36.0); MEAN CORPUSCULAR VOLUME 88 FL (80-99); NEUTROPHILS % (AUTO) 77.1 % (45.0-75.0); PLATELET COUNT 228 K/UL (150-450); RED BLOOD COUNT 3.57 M/UL (4.20-5.40); RED CELL DISTRIBUTION WIDTH 14.5 % (11.6-14.8); WHITE BLOOD COUNT 9.2 K/UL (4.8-10.8)
[2016-12-27 09:15] LABS: ALANINE AMINOTRANSFERASE 15 U/L (12-78); ALBUMIN/GLOBULIN RATIO 0.6 (1.0-2.7); ANION GAP 9 (5-15); ASPARTATE AMINO TRANSFERASE 14 U/L (15-37); CALCIUM 9.1 MG/DL (8.5-10.1); CARBON DIOXIDE 26 MMOL/L (21-32); CHLORIDE 110 MMOL/L (98-107); CREATININE 0.9 MG/DL (0.55-1.30); GLOMERULAR FILTRATION RATE > 60 mL/min (>60); POTASSIUM 3.5 MMOL/L (3.5-5.1); SODIUM 145 MMOL/L (136-145); TOTAL PROTEIN 7.5 G/DL (6.4-8.2)
[2016-12-27 09:35] LABS: BILIRUBIN,DIRECT 0.2 MG/DL (0.0-0.3)
--- NOTE | 2016-12-27 10:07 | Diagnostic Imaging Report ---
Indication: SOB Technique: One view of the chest Comparison: none Findings: Lungs and pleural spaces are clear. Heart size is normal. Aorta is elongated Impression: No acute process
[2016-12-27] MEDS: Heparin 5000 units/ml inj SUBQ SCH ×2 (10:45→20:44)
--- NOTE | 2016-12-27 12:33 | Wound Care Consultation ---
Wound Assessment Wound Assessment : Wound Number: 1 Wound Present on Admission: Yes New Wound: No Status Change of Wound: No Wound Location Body Site Modif: left, lower, medial Wound Location Body Site: leg Wound Type: other - diabetic ulcer Jovan Test: Does not Jovan Wound Thickness: Full Thickness Wound Length: 6.0 Wound Width: 1.0 Wound Depth: 0.3 Percent of Wound [place]/Red: 90 Percent of Wound Bed Yellow/Wh: 10 - scattered dry Wound Drainage Description: Serosanguineous Wound Drainage Amount: Scant Wound Drainage Odor: None/Absent Tissue Surrounding Wound: Erythemic Wound General Appearance: Reddened Wound Comment #1 Left lower medial leg Diabetic Ulcer. #2 Right lower leg scar ,HX of DM ULCER (intact). Recommendation. -Local wound care as ordered per protocol. -Keep clean and dry. -Turn and reposition. -Offload affected area. -Optimize nutrition. -Assess and notify MD for any further changes of condition to skin noted. DION WOODSON Dec 27, 2016 12:33
--- NOTE | 2016-12-27 14:13 | History and Physical ---
History of Present Illness General Date patient seen: Dec 26, 2016 Reason for Hospitalization: Flu Like Symptoms Present Illness HPI 61 YEAR OLD walk-in with 1 day of fever/chills, left sided abd pain, nausea/ vomiting x1 Was admitted last month Nov 2016 for sepsis thought d/t UTI/E.Coli. Blood Cx were negative X2. Pt was diagnosed to have sepsis and admitted to telemetry for further work up. Allergies: Coded Allergies: No Known Allergies (Unverified , 11/30/16) Medication History Scheduled No Known Medications* (NKM - No Known Medications*), 0 ., (Reported) Discontinued Medications Aspirin* (Aspir 81*), 81 MG ORAL DAILY, (Reported) Discontinued Reason: Pt stopped taking med Ertapenem Sodium* (INVanz*), 1 GM IVPB Q24H Discontinued Reason: Pt stopped taking med Glipizide* (Glipizide*), 5 MG ORAL BIDAC, (Reported) Discontinued Reason: Pt stopped taking med Metformin Hcl* (Metformin Hcl*), 500 MG ORAL TWICE A DAY, (Reported) Discontinued Reason: Pt stopped taking med [cholesterol med], (Reported) Discontinued Reason: Pt stopped taking med Patient History Healthcare decision maker Resuscitation status Full Code Advanced Directive on File Past Medical/Surgical History Past Medical/Surgical History: (1) Diabetes mellitus (2) Hypertension Review of Systems Constitutional: Reports: no symptoms ENT: Reports: no symptoms Physical Exam General Appearance: no apparent distress Lines, tubes and drains: peripheral HEENT: normocephalic, anicteric Neck: non-tender, normal alignment Respiratory/Chest: chest wall non-tender, normal breath sounds Cardiovascular/Chest: normal peripheral pulses, normal rate Last 24 Hour Vital Signs Date Time Temp Pulse Resp B/P (MAP) Pulse Ox O2 Delivery O2 Flow Rate FiO2 12/27/16 12:00 75 12/27/16 11:51 97.9 76 18 110/55 99 Room Air 12/27/16 08:18 98.1 85 18 119/72 98 Room Air 12/27/16 08:00 81 12/27/16 04:50 98.2 84 16 118/66 Room Air 12/27/16 04:00 98.2 84 16 118/66 95 Room Air 12/27/16 04:00 82 12/27/16 00:00 71 12/27/16 00:00 98.8 72 16 106/59 97 Room Air 12/26/16 20:20 98.1 80 12 110/59 94 Room Air 12/26/16 20:00 81 12/26/16 19:40 100.4 93 13 112/55 96 Room Air 12/26/16 18:30 100.4 93 13 112/55 96 Room Air 12/26/16 18:19 100.4 12/26/16 16:45 101.2 102 24 140/53 96 Room Air 12/26/16 16:45 103 24 Room Air 12/26/16 16:35 100.4 123 20 138/55 96 Room Air Intake and Output 12/27/16 12/28/16 19:00 07:00 Intake Total 600 ml Balance 600 ml Intake Oral 600 ml # Voids 3 Laboratory Tests Test 12/26/16 17:15 12/26/16 17:35 12/27/16 08:00 White Blood Count 11.5 K/UL (4.8-10.8) H 9.2 K/UL (4.8-10.8) Red Blood Count 3.41 M/UL (4.20-5.40) L 3.57 M/UL (4.20-5.40) L Hemoglobin 9.5 G/DL (12.0-16.0) L 10.2 G/DL (12.0-16.0) L Hematocrit 29.8 % (37.0-47.0) L 31.3 % (37.0-47.0) L Mean Corpuscular Volume 88 FL (80-99) 88 FL (80-99) Mean Corpuscular Hemoglobin 27.8 PG (27.0-31.0) 28.5 PG (27.0-31.0) Mean Corpuscular Hemoglobin Concent 31.8 G/DL (32.0-36.0) L 32.5 G/DL (32.0-36.0) Red Cell Distribution Width 14.5 % (11.6-14.8) 14.5 % (11.6-14.8) Platelet Count 198 K/UL (150-450) 228 K/UL (150-450) Mean Platelet Volume 6.8 FL (6.5-10.1) 7.0 FL (6.5-10.1) Neutrophils (%) (Auto) % (45.0-75.0) 77.1 % (45.0-75.0) H Lymphocytes (%) (Auto) % (20.0-45.0) 10.4 % (20.0-45.0) L Monocytes (%) (Auto) % (1.0-10.0) 11.0 % (1.0-10.0) H Eosinophils (%) (Auto) % (0.0-3.0) 1.1 % (0.0-3.0) Basophils (%) (Auto) % (0.0-2.0) 0.4 % (0.0-2.0) Differential Total Cells Counted 100 Neutrophils % (Manual) 80 % (45-75) H Lymphocytes % (Manual) 11 % (20-45) L Monocytes % (Manual) 9 % (1-10) Eosinophils % (Manual) 0 % (0-3) Basophils % (Manual) 0 % (0-2) Band Neutrophils 0 % (0-8) Platelet Estimate Adequate Platelet Morphology Normal Hypochromasia Occasional Sodium Level 142 MMOL/L (136-145) 145 MMOL/L (136-145) Potassium Level 3.3 MMOL/L (3.5-5.1) L 3.5 MMOL/L (3.5-5.1) Chloride Level 106 MMOL/L (98-107) 110 MMOL/L (98-107) H Carbon Dioxide Level 25 MMOL/L (21-32) 26 MMOL/L (21-32) Anion Gap 11 (5-15) 9 (5-15) Blood Urea Nitrogen 17 mg/dL (7-18) 12 mg/dL (7-18) Creatinine 1.0 MG/DL (0.55-1.30) 0.9 MG/DL (0.55-1.30) Estimat Glomerular Filtration Rate 56.0 mL/min (>60) > 60 mL/min (>60) Glucose Level 147 MG/DL (74-106) H 105 MG/DL (74-106) Lactic Acid Level 0.90 mmol/L (0.66-2.22) Calcium Level 8.9 MG/DL (8.5-10.1) 9.1 MG/DL (8.5-10.1) Total Bilirubin 1.4 MG/DL (0.2-1.0) H 1.1 MG/DL (0.2-1.0) H Direct Bilirubin 0.3 MG/DL (0.0-0.3) 0.2 MG/DL (0.0-0.3) Aspartate Amino Transf (AST/SGOT) 15 U/L (15-37) 14 U/L (15-37) L Alanine Aminotransferase (ALT/SGPT) 16 U/L (12-78) 15 U/L (12-78) Alkaline Phosphatase 84 U/L (46-116) 79 U/L (46-116) Total Creatine Kinase 56 U/L (26-308) Creatine Kinase MB < 0.5 NG/ML (0.0-3.6) Creatine Kinase MB Relative Index 0.8 Troponin I 0.017 ng/mL (0.000-0.056) Total Protein 7.8 G/DL (6.4-8.2) 7.5 G/DL (6.4-8.2) Albumin 3.1 G/DL (3.4-5.0) L 2.9 G/DL (3.4-5.0) L Globulin 4.7 g/dL 4.6 g/dL Albumin/Globulin Ratio 0.7 (1.0-2.7) L 0.6 (1.0-2.7) L Urine Color Pale yellow Urine Appearance Slightly cloudy Urine pH 7 (4.5-8.0) Urine Specific [place] 1.005 (1.005-1.035) Urine Protein 2+ (NEGATIVE) H Urine Glucose (UA) Negative (NEGATIVE) Urine Ketones Negative (NEGATIVE) Urine Occult Blood 3+ (NEGATIVE) H Urine Nitrite Negative (NEGATIVE) Urine Bilirubin Negative (NEGATIVE) Urine Urobilinogen Normal MG/DL (0.0-1.0) Urine Leukocyte Esterase 3+ (NEGATIVE) H Urine RBC 10-15 /HPF (0 - 2) H Urine WBC Tntc /HPF (0 - 2) H Urine Squamous Epithelial Cells Few /LPF (NONE/OCC) Urine Bacteria Many /HPF (NONE) H Microbiology Date/Time Source Procedure Growth Status 12/26/16 17:15 Nasal Nares Influenza Types A,B Antigen (SHYANNE) - Final Complete 12/26/16 17:35 Urine,Clean Catch Urine Culture - Preliminary Gram Negative Bacillus 1 Resulted Height (Feet): 5 Height (Inches): 2.00 Weight (Pounds): 125 Medications Current Medications Medications (Trade) Dose Ordered Sig/Angeli Route PRN Reason Start Time Stop Time Status Last Admin Dose Admin Acetaminophen (Tylenol) 650 mg Q4H PRN ORAL T>100.5 12/26/16 19:15 01/25/17 19:14 Albuterol/ Ipratropium (DuoNeb 0.5-3(2.5)mg/3ml) 3 ml Q4H PRN HHN Shortness of Breath 12/26/16 19:15 12/31/16 19:14 Cefepime HCl 2 gm/ Dextrose 110 ml @ 220 mls/hr Q12HR@1030,2230 IV 12/26/16 22:30 01/02/17 22:29 12/27/16 10:37 Dextrose (Dextrose 50%) STAT PRN IV Hypoglycemia 12/26/16 19:15 01/25/17 19:14 Heparin Sodium (Porcine) (Heparin 5000 units/ml) 5,000 units EVERY 12 HOURS SUBQ 12/26/16 21:00 01/25/17 20:59 12/27/16 10:45 Insulin Aspart (NovoLOG) BEFORE MEALS AND HS SUBQ 12/26/16 21:00 01/25/17 20:59 12/27/16 06:23 Morphine Sulfate (Morphine Sulfate) 2 mg Q4H PRN IVP Moderate Pain (Pain Scale 4-6) 12/26/16 19:15 01/02/17 19:14 Nitroglycerin (Ntg) 0.4 mg Q5MIN X 3 DOSES PRN SL Prn Chest Pain 12/26/16 19:30 01/25/17 19:29 Ondansetron HCl (Zofran) 4 mg Q6H PRN IVP Nausea & Vomiting 12/26/16 19:15 01/25/17 19:14 12/27/16 03:59 Polyethylene Glycol (Miralax) 17 gm DAILYPRN PRN ORAL Constipation 12/26/16 19:15 01/25/17 19:14 Temazepam (Restoril) 15 mg HSPRN PRN ORAL Insomnia 12/26/16 21:00 01/02/17 20:59 Vancomycin HCl (Vanco rx to dose) 1 ea DAILY PRN MISC . 12/26/16 19:30 01/25/17 19:29 Vancomycin HCl 1 gm/Dextrose 275 ml @ 183.3 mls/ hr Q24H IVPB 12/27/16 20:00 01/01/17 19:59 Assessment/Plan Problem List: (1) Pyelonephritis ICD Codes: N12 - Tubulo-interstitial nephritis, not specified as acute or chronic SNOMED: 23026334 (2) Sepsis ICD Codes: A41.9 - Sepsis, unspecified organism SNOMED: 75536159 Qualifiers: Qualified Codes: A41.9 - Sepsis, unspecified organism (3) Hypertension ICD Codes: I10 - Essential (primary) hypertension SNOMED: 56293040 (4) Diabetes mellitus ICD Codes: E11.9 - Type 2 diabetes mellitus without complications SNOMED: 75205747 Assessment/Plan iv abx iv hydration ID evaluatin sliding scale diabetic diet. TRINA VÁSQUEZ Dec 27, 2016 14:12
--- NOTE | 2016-12-27 14:29 | Pulmonology Progress Note ---
Assessment/Plan Problems: (1) Pyelonephritis (2) Sepsis (3) Hypertension (4) Diabetes mellitus Assessment/Plan check cultures continue abx med/surg Subjective ROS Limited/Unobtainable: No Constitutional: Reports: no symptoms HEENT: Repors: no symptoms Respiratory: Reports: no symptoms Allergies: Coded Allergies: No Known Allergies (Unverified , 11/30/16) Objective Last 24 Hour Vital Signs Date Time Temp Pulse Resp B/P (MAP) Pulse Ox O2 Delivery O2 Flow Rate FiO2 12/27/16 12:00 75 12/27/16 11:51 97.9 76 18 110/55 99 Room Air 12/27/16 08:18 98.1 85 18 119/72 98 Room Air 12/27/16 08:00 81 12/27/16 04:50 98.2 84 16 118/66 Room Air 12/27/16 04:00 98.2 84 16 118/66 95 Room Air 12/27/16 04:00 82 12/27/16 00:00 71 12/27/16 00:00 98.8 72 16 106/59 97 Room Air 12/26/16 20:20 98.1 80 12 110/59 94 Room Air 12/26/16 20:00 81 12/26/16 19:40 100.4 93 13 112/55 96 Room Air 12/26/16 18:30 100.4 93 13 112/55 96 Room Air 12/26/16 18:19 100.4 12/26/16 16:45 101.2 102 24 140/53 96 Room Air 12/26/16 16:45 103 24 Room Air 12/26/16 16:35 100.4 123 20 138/55 96 Room Air Intake and Output 12/27/16 12/28/16 19:00 07:00 Intake Total 600 ml Balance 600 ml Intake Oral 600 ml # Voids 3 General Appearance: WD/WN HEENT: normocephalic, atraumatic Respiratory/Chest: chest wall non-tender, lungs clear Cardiovascular: normal peripheral pulses, normal rate Abdomen: normal bowel sounds, soft, non tender Genitourinary: normal external genitalia Extremities: no cyanosis Skin: no rash Neurologic/Psychiatric: carpet cleaner II-XII grossly normal Lymphatic: no neck adenopathy Microbiology Date/Time Source Procedure Growth Status 12/26/16 17:15 Nasal Nares Influenza Types A,B Antigen (SHYANNE) - Final Complete 12/26/16 17:35 Urine,Clean Catch Urine Culture - Preliminary Gram Negative Bacillus 1 Resulted Laboratory Tests 12/26/16 17:15: White Blood Count 11.5H, Red Blood Count 3.41L, Hemoglobin 9.5L, Hematocrit 29.8L, Mean Corpuscular Volume 88, Mean Corpuscular Hemoglobin 27.8, Mean Corpuscular Hemoglobin Concent 31.8L, Red Cell Distribution Width 14.5, Platelet Count 198, Mean Platelet Volume 6.8, Neutrophils (%) (Auto) , Lymphocytes (%) (Auto) , Monocytes (%) (Auto) , Eosinophils (%) (Auto) , Basophils (%) (Auto) , Differential Total Cells Counted 100, Neutrophils % ( Manual) 80H, Lymphocytes % (Manual) 11L, Monocytes % (Manual) 9, Eosinophils % ( Manual) 0, Basophils % (Manual) 0, Band Neutrophils 0, Platelet Estimate Adequate, Platelet Morphology Normal, Hypochromasia Occasional, Sodium Level 142 , Potassium Level 3.3L, Chloride Level 106, Carbon Dioxide Level 25, Anion Gap 11, Blood Urea Nitrogen 17, Creatinine 1.0, Estimat Glomerular Filtration Rate 56.0, Glucose Level 147H, Lactic Acid Level 0.90, Calcium Level 8.9, Total Bilirubin 1.4H, Direct Bilirubin 0.3, Aspartate Amino Transf (AST/SGOT) 15, Alanine Aminotransferase (ALT/SGPT) 16, Alkaline Phosphatase 84, Total Creatine Kinase 56, Creatine Kinase MB < 0.5, Creatine Kinase MB Relative Index 0.8, Troponin I 0.017, Total Protein 7.8, Albumin 3.1L, Globulin 4.7, Albumin/ Globulin Ratio 0.7L 12/26/16 17:35: Urine Color Pale yellow, Urine Appearance Slightly cloudy, Urine pH 7, Urine Specific [place] 1.005, Urine Protein 2+H, Urine Glucose (UA) Negative, Urine Ketones Negative, Urine Occult Blood 3+H, Urine Nitrite Negative, Urine Bilirubin Negative, Urine Urobilinogen Normal, Urine Leukocyte Esterase 3+H, Urine RBC 10-15H, Urine WBC TntcH, Urine Squamous Epithelial Cells Few, Urine Bacteria ManyH 12/27/16 08:00: White Blood Count 9.2, Red Blood Count 3.57L, Hemoglobin 10.2L, Hematocrit 31.3L , Mean Corpuscular Volume 88, Mean Corpuscular Hemoglobin 28.5, Mean Corpuscular Hemoglobin Concent 32.5, Red Cell Distribution Width 14.5, Platelet Count 228, Mean Platelet Volume 7.0, Neutrophils (%) (Auto) 77.1H, Lymphocytes ( %) (Auto) 10.4L, Monocytes (%) (Auto) 11.0H, Eosinophils (%) (Auto) 1.1, Basophils (%) (Auto) 0.4, Sodium Level 145, Potassium Level 3.5, Chloride Level 110H, Carbon Dioxide Level 26, Anion Gap 9, Blood Urea Nitrogen 12, Creatinine 0.9, Estimat Glomerular Filtration Rate > 60, Glucose Level 105, Calcium Level 9.1, Total Bilirubin 1.1H, Direct Bilirubin 0.2, Aspartate Amino Transf (AST/ SGOT) 14L, Alanine Aminotransferase (ALT/SGPT) 15, Alkaline Phosphatase 79, Total Protein 7.5, Albumin 2.9L, Globulin 4.6, Albumin/Globulin Ratio 0.6L Current Medications Medications (Trade) Dose Ordered Sig/Angeli Route PRN Reason Start Time Stop Time Status Last Admin Dose Admin Acetaminophen (Tylenol) 650 mg Q4H PRN ORAL T>100.5 12/26/16 19:15 01/25/17 19:14 Albuterol/ Ipratropium (DuoNeb 0.5-3(2.5)mg/3ml) 3 ml Q4H PRN HHN Shortness of Breath 12/26/16 19:15 12/31/16 19:14 Cefepime HCl 2 gm/ Dextrose 110 ml @ 220 mls/hr Q12HR@1030,2230 IV 12/26/16 22:30 01/02/17 22:29 12/27/16 10:37 Dextrose (Dextrose 50%) STAT PRN IV Hypoglycemia 12/26/16 19:15 01/25/17 19:14 Heparin Sodium (Porcine) (Heparin 5000 units/ml) 5,000 units EVERY 12 HOURS SUBQ 12/26/16 21:00 01/25/17 20:59 12/27/16 10:45 Insulin Aspart (NovoLOG) BEFORE MEALS AND HS SUBQ 12/26/16 21:00 01/25/17 20:59 12/27/16 06:23 Morphine Sulfate (Morphine Sulfate) 2 mg Q4H PRN IVP Moderate Pain (Pain Scale 4-6) 12/26/16 19:15 01/02/17 19:14 Nitroglycerin (Ntg) 0.4 mg Q5MIN X 3 DOSES PRN SL Prn Chest Pain 12/26/16 19:30 01/25/17 19:29 Ondansetron HCl (Zofran) 4 mg Q6H PRN IVP Nausea & Vomiting 12/26/16 19:15 01/25/17 19:14 12/27/16 03:59 Polyethylene Glycol (Miralax) 17 gm DAILYPRN PRN ORAL Constipation 12/26/16 19:15 01/25/17 19:14 Temazepam (Restoril) 15 mg HSPRN PRN ORAL Insomnia 12/26/16 21:00 01/02/17 20:59 Vancomycin HCl (Vanco rx to dose) 1 ea DAILY PRN MISC . 12/26/16 19:30 01/25/17 19:29 Vancomycin HCl 1 gm/Dextrose 275 ml @ 183.3 mls/ hr Q24H IVPB 12/27/16 20:00 01/01/17 19:59 TRINA VÁSQUEZ Dec 27, 2016 14:29
[2016-12-27] MEDS ORDERED: Nitroglycerin Subl 0.4mg tab SL PRN (17:15)
[2016-12-27] MEDS ORDERED: Albuterol/Ipratropium 3ml neb HHN PRN (17:15)
[2016-12-27] MEDS ORDERED: Morphine Sulfate 2mg/ml Inj IVP PRN (17:15)
[2016-12-27] MEDS ORDERED: Miralax 17gm pkt ORAL PRN (17:15)
--- NOTE | 2016-12-27 18:00 | Consultation ---
History of Present Illness General Date patient seen: Dec 27, 2016 Time patient seen: 18:09 Chief Complaint: Flu Like Symptoms Reason for Consultation: Sepsis Present Illness HPI 61 y/o F with hx of HTN, DM2 presents to ED on 12/26 with 1 day of f/c, L side abd pain, n/v Of note, patient recently admitted in this hospital and discharged on 12/10 with a dx of Complicated ESBL E.coli UTI/pyelonephritis with bacteremia and treated with 14 days of Ertapenem (end date 12/20/16) Febrile to 101.2, leukocytosis 11.5 upon admission, now resolved. U/a with significant pyuria. and ucx grwoing GNB. Flu neg. Started on IV Vanco and Cefepime.. s/o 1 dose of Erta Allergies: Coded Allergies: No Known Allergies (Unverified , 11/30/16) Medication History Scheduled No Known Medications* (NKM - No Known Medications*), 0 ., (Reported) Discontinued Medications Aspirin* (Aspir 81*), 81 MG ORAL DAILY, (Reported) Discontinued Reason: Pt stopped taking med Ertapenem Sodium* (INVanz*), 1 GM IVPB Q24H Discontinued Reason: Pt stopped taking med Glipizide* (Glipizide*), 5 MG ORAL BIDAC, (Reported) Discontinued Reason: Pt stopped taking med Metformin Hcl* (Metformin Hcl*), 500 MG ORAL TWICE A DAY, (Reported) Discontinued Reason: Pt stopped taking med [cholesterol med], (Reported) Discontinued Reason: Pt stopped taking med Patient History Healthcare decision maker Resuscitation status Full Code Advanced Directive on File Patient History Narrative PMhx: as above SHx: non contributory Fhx: non contributory Review of Systems All Other Systems: negative except mentioned in HPI Physical Exam Physical Exam Narrative General Appearance: no apparent distress Lines, tubes and drains: peripheral HEENT: normocephalic, anicteric Neck: non-tender, normal alignment Respiratory/Chest: chest wall non-tender, normal breath sounds Cardiovascular/Chest: normal peripheral pulses, normal rate Abd: Bs+, S+D, non tender, non distended SKin: no rash Last 24 Hour Vital Signs Date Time Temp Pulse Resp B/P (MAP) Pulse Ox O2 Delivery O2 Flow Rate FiO2 12/27/16 16:00 77 12/27/16 15:26 97.3 79 18 105/56 99 Room Air 12/27/16 12:00 75 12/27/16 11:51 97.9 76 18 110/55 99 Room Air 12/27/16 08:18 98.1 85 18 119/72 98 Room Air 12/27/16 08:00 81 12/27/16 04:50 98.2 84 16 118/66 Room Air 12/27/16 04:00 98.2 84 16 118/66 95 Room Air 12/27/16 04:00 82 12/27/16 00:00 71 12/27/16 00:00 98.8 72 16 106/59 97 Room Air 12/26/16 20:20 98.1 80 12 110/59 94 Room Air 12/26/16 20:00 81 12/26/16 19:40 100.4 93 13 112/55 96 Room Air 12/26/16 18:30 100.4 93 13 112/55 96 Room Air 12/26/16 18:19 100.4 Intake and Output 12/27/16 12/28/16 19:00 07:00 Intake Total 710 ml Balance 710 ml Intake Oral 600 ml IV Total 110 ml # Voids 3 Laboratory Tests Test 12/27/16 08:00 White Blood Count 9.2 K/UL (4.8-10.8) Red Blood Count 3.57 M/UL (4.20-5.40) L Hemoglobin 10.2 G/DL (12.0-16.0) L Hematocrit 31.3 % (37.0-47.0) L Mean Corpuscular Volume 88 FL (80-99) Mean Corpuscular Hemoglobin 28.5 PG (27.0-31.0) Mean Corpuscular Hemoglobin Concent 32.5 G/DL (32.0-36.0) Red Cell Distribution Width 14.5 % (11.6-14.8) Platelet Count 228 K/UL (150-450) Mean Platelet Volume 7.0 FL (6.5-10.1) Neutrophils (%) (Auto) 77.1 % (45.0-75.0) H Lymphocytes (%) (Auto) 10.4 % (20.0-45.0) L Monocytes (%) (Auto) 11.0 % (1.0-10.0) H Eosinophils (%) (Auto) 1.1 % (0.0-3.0) Basophils (%) (Auto) 0.4 % (0.0-2.0) Sodium Level 145 MMOL/L (136-145) Potassium Level 3.5 MMOL/L (3.5-5.1) Chloride Level 110 MMOL/L (98-107) H Carbon Dioxide Level 26 MMOL/L (21-32) Anion Gap 9 (5-15) Blood Urea Nitrogen 12 mg/dL (7-18) Creatinine 0.9 MG/DL (0.55-1.30) Estimat Glomerular Filtration Rate > 60 mL/min (>60) Glucose Level 105 MG/DL (74-106) Calcium Level 9.1 MG/DL (8.5-10.1) Total Bilirubin 1.1 MG/DL (0.2-1.0) H Direct Bilirubin 0.2 MG/DL (0.0-0.3) Aspartate Amino Transf (AST/SGOT) 14 U/L (15-37) L Alanine Aminotransferase (ALT/SGPT) 15 U/L (12-78) Alkaline Phosphatase 79 U/L (46-116) Total Protein 7.5 G/DL (6.4-8.2) Albumin 2.9 G/DL (3.4-5.0) L Globulin 4.6 g/dL Albumin/Globulin Ratio 0.6 (1.0-2.7) L reviewed Height (Feet): 5 Height (Inches): 2.00 Weight (Pounds): 125 Medications Current Medications Medications (Trade) Dose Ordered Sig/Angeli Route PRN Reason Start Time Stop Time Status Last Admin Dose Admin Acetaminophen (Tylenol) 650 mg Q4H PRN ORAL T>100.5 12/27/16 17:15 01/25/17 17:14 Albuterol/ Ipratropium (DuoNeb 0.5-3(2.5)mg/3ml) 3 ml Q4H PRN HHN Shortness of Breath 12/27/16 17:15 12/31/16 17:14 Cefepime HCl 2 gm/ Dextrose 110 ml @ 220 mls/hr Q12HR@1030,2230 IV 12/27/16 22:30 01/02/17 22:29 Dextrose (Dextrose 50%) STAT PRN IV Hypoglycemia 12/27/16 17:15 01/25/17 17:14 Heparin Sodium (Porcine) (Heparin 5000 units/ml) 5,000 units EVERY 12 HOURS SUBQ 12/27/16 21:00 01/25/17 20:59 Insulin Aspart (NovoLOG) BEFORE MEALS AND HS SUBQ 12/27/16 21:00 01/25/17 20:59 Morphine Sulfate (Morphine Sulfate) 2 mg Q4H PRN IVP Moderate Pain (Pain Scale 4-6) 12/27/16 17:15 01/02/17 17:14 Nitroglycerin (Ntg) 0.4 mg Q5MIN X 3 DOSES PRN SL Prn Chest Pain 12/27/16 17:15 01/25/17 19:29 Ondansetron HCl (Zofran) 4 mg Q6H PRN IVP Nausea & Vomiting 12/27/16 17:15 01/25/17 17:14 Polyethylene Glycol (Miralax) 17 gm DAILYPRN PRN ORAL Constipation 12/27/16 17:15 01/25/17 17:14 Temazepam (Restoril) 15 mg HSPRN PRN ORAL Insomnia 12/27/16 21:00 01/02/17 20:59 Vancomycin HCl (Vanco rx to dose) 1 ea DAILY PRN MISC PRN RX TO DOSE PROTOCOL 12/27/16 09:00 01/26/17 08:59 Vancomycin HCl 1 gm/Dextrose 250 ml @ 166.636 mls/hr Q24H IVPB 12/27/16 20:00 01/01/17 19:59 Assessment/Plan Assessment/Plan Abx: IV vancomycin/Cefepime 12/26- Ertapenem x1 12/26 Assesment: //Fever, n/v, abd pain - r/o recurrent ESBL pyelo/bacteremia -u/a WBC Tntc, nit neg, leuk est +3; Ucx >100K GNB ( ID and sensi pending) -Bcx pending -CXR 12/26: no acute process. // Recent Complicated ESBL+ E.coli UTI / pyelonephritis with bacteremia , s/p Rx - CT A/P: Massive bilateral hydronephrosis and bilateral hydroureter. Some stranding of the bilateral perinephric and periureteral fat, could indicate superimposed infection. Nonspecific prominent para-aortic, paracaval, left inguinal nodes // Uterine prolapse SP manual reduction 12/02 by urology -had pessary that has been removed prior to last admission // NKDA // Full Code Plan: - Continue IV vancomycin #2 pending Bcx -if Bcx neg for GP bacteria in the next 24-48hrs, can d/c -Switch Cefepime #2 to Ertapenem pending UCx (to cover for ESBL) (12/20 14d Ertapenem) (12/03 3d Cefepime) ( 12/02 SP IV vancomycin d# 2 -renal US, may need repeat CT abd/p pending findings -may need ObGy/urology re-evaluation as suspect her recurrent UTI/pyelo is due to obstructive nephropathy given uterine prolapse -may need abx suppression with an Oral abx (prior specimen susceptible to Bactrim and nitrofurantoin) after end of current abx treatment until she gets hysterectomy. -f/u cx -Monitor CBC/BMP, temperatures Discussed with Zahida Simon M.D. Dec 27, 2016 18:00
[2016-12-27] MEDS ORDERED: Vancomycin 1 GM in D5W 275 ML IVPB SCH ×4 (20:00)
[2016-12-27] MEDS: Ertapenem 1 GM in NS 55 ML IVPB SCH (22:18)
[2016-12-27] MEDS ORDERED: Cefepime HCl 2 GM in D5W 110 ML IV SCH (22:30)
[2016-12-28] VITALS: BP 116/66
[2016-12-28 04:00] VITALS: BP 111/69
[2016-12-28] MEDS: NovoLOG Insulin Flexpen SUBQ SCH ×4 (05:50→20:59)
[2016-12-28 08:00] VITALS: BP 100/57
[2016-12-28] MEDS: Heparin 5000 units/ml inj SUBQ SCH ×2 (09:10→20:58)
[2016-12-28 12:00] VITALS: BP 109/67
--- NOTE | 2016-12-28 12:16 | Infectious Diseases Prog Note ---
Assessment/Plan Assessment/Plan Assessment: // Recurrent Complicated ESBL+ E.coli UTI / pyelonephritis - CT A/P 11/30: Massive bilateral hydronephrosis and bilateral hydroureter. Some stranding of the bilateral perinephric and periureteral fat, could indicate superimposed infection. Nonspecific prominent para-aortic, paracaval, left inguinal nodes // Leukocytosis - resolved //Fever - improved // Uterine prolapse SP manual reduction 12/02 by urology -had pessary that has been removed prior to last admission // NKDA // Full Code Plan: - DC IV vancomycin #3 -continue Ertapenem d# 2 / - ( 12/27 SP Cefepime #2 ) (12/20 14d Ertapenem) (12/03 3d Cefepime) ( 12/02 SP IV vancomycin d# 2 -f/u renal US, may need repeat CT abd/p pending findings -may need ObGy/urology re-evaluation as suspect her recurrent UTI/pyelo is due to obstructive nephropathy given uterine prolapse -may need abx suppression with an Oral abx (prior specimen susceptible to Bactrim and nitrofurantoin) after end of current abx treatment until she gets hysterectomy. -f/u cx -Monitor CBC/BMP, temperatures Subjective Allergies: Coded Allergies: No Known Allergies (Unverified , 11/30/16) Subjective fevers improved, leukocytosis resolved Objective Vital Signs Last 24 Hour Vital Signs Date Time Temp Pulse Resp B/P (MAP) Pulse Ox O2 Delivery O2 Flow Rate FiO2 12/28/16 08:47 66 16 Room Air 21 12/28/16 08:00 98.7 88 18 100/57 98 Room Air 12/28/16 04:00 98.2 66 21 111/69 98 Room Air 12/28/16 00:00 98.8 77 21 116/66 95 Room Air 12/27/16 20:00 100.5 80 20 132/69 96 Room Air 12/27/16 16:00 77 12/27/16 15:26 97.3 79 18 105/56 99 Room Air Height (Feet): 5 Height (Inches): 2.00 Weight (Pounds): 125 General Appearance: no acute distress Respiratory/Chest: no respiratory distress Cardiovascular: normal rate, regular rhythm Abdomen: normal bowel sounds, soft, non tender, non distended Microbiology Date/Time Source Procedure Growth Status 12/26/16 17:15 Blood Blood Culture - Preliminary NO GROWTH AFTER 24 HOURS Resulted 12/26/16 17:00 Blood Blood Culture - Preliminary NO GROWTH AFTER 24 HOURS Resulted 12/26/16 17:15 Nasal Nares Influenza Types A,B Antigen (SHYANNE) - Final Complete 12/26/16 17:35 Urine,Clean Catch Urine Culture - Final Escherichia Coli - Esbl Complete 12/27/16 01:58 Leg Left Gram Stain - Final Resulted 12/27/16 01:58 Leg Left Wound Culture Pending Resulted Current Medications Medications (Trade) Dose Ordered Sig/Angeli Route PRN Reason Start Time Stop Time Status Last Admin Dose Admin Acetaminophen (Tylenol) 650 mg Q4H PRN ORAL T>100.5 12/27/16 17:15 01/25/17 17:14 Albuterol/ Ipratropium (DuoNeb 0.5-3(2.5)mg/3ml) 3 ml Q4H PRN HHN Shortness of Breath 12/27/16 17:15 12/31/16 17:14 Dextrose (Dextrose 50%) STAT PRN IV Hypoglycemia 12/27/16 17:15 01/25/17 17:14 Ertapenem 1 gm/ Sodium Chloride 55 ml @ 110 mls/hr Q24H IVPB 12/27/16 22:00 01/01/17 21:59 12/27/16 22:18 Heparin Sodium (Porcine) (Heparin 5000 units/ml) 5,000 units EVERY 12 HOURS SUBQ 12/27/16 21:00 01/25/17 20:59 12/28/16 09:10 Insulin Aspart (NovoLOG) BEFORE MEALS AND HS SUBQ 12/27/16 21:00 01/25/17 20:59 12/28/16 11:55 Morphine Sulfate (Morphine Sulfate) 2 mg Q4H PRN IVP Moderate Pain (Pain Scale 4-6) 12/27/16 17:15 01/02/17 17:14 Nitroglycerin (Ntg) 0.4 mg Q5MIN X 3 DOSES PRN SL Prn Chest Pain 12/27/16 17:15 01/25/17 19:29 Ondansetron HCl (Zofran) 4 mg Q6H PRN IVP Nausea & Vomiting 12/27/16 17:15 01/25/17 17:14 Polyethylene Glycol (Miralax) 17 gm DAILYPRN PRN ORAL Constipation 12/27/16 17:15 01/25/17 17:14 Temazepam (Restoril) 15 mg HSPRN PRN ORAL Insomnia 12/27/16 21:00 01/02/17 20:59 Vancomycin HCl (Vanco rx to dose) 1 ea DAILY PRN MISC PRN RX TO DOSE PROTOCOL 12/27/16 09:00 01/26/17 08:59 Vancomycin HCl 1 gm/Dextrose 250 ml @ 166.636 mls/hr Q24H IVPB 12/27/16 20:00 01/01/17 19:59 12/27/16 20:39 LOIS JIMENEZ Dec 28, 2016 12:16
--- NOTE | 2016-12-28 15:15 | Pulmonology Progress Note ---
Assessment/Plan Problems: (1) Pyelonephritis (2) Sepsis (3) Hypertension (4) Diabetes mellitus Assessment/Plan check cultures continue abx med/surg f/u ID recommendations Subjective ROS Limited/Unobtainable: No Constitutional: Reports: no symptoms HEENT: Repors: no symptoms Respiratory: Reports: no symptoms Cardiovascular: Reports: no symptoms Allergies: Coded Allergies: No Known Allergies (Unverified , 11/30/16) Objective Last 24 Hour Vital Signs Date Time Temp Pulse Resp B/P (MAP) Pulse Ox O2 Delivery O2 Flow Rate FiO2 12/28/16 12:00 97.7 74 18 109/67 98 Room Air 12/28/16 08:47 66 16 Room Air 21 12/28/16 08:00 98.7 88 18 100/57 98 Room Air 12/28/16 04:00 98.2 66 21 111/69 98 Room Air 12/28/16 00:00 98.8 77 21 116/66 95 Room Air 12/27/16 20:00 100.5 80 20 132/69 96 Room Air 12/27/16 16:00 77 12/27/16 15:26 97.3 79 18 105/56 99 Room Air General Appearance: WD/WN, no acute distress HEENT: normocephalic Respiratory/Chest: chest wall non-tender, lungs clear Breasts: no masses Cardiovascular: normal peripheral pulses Genitourinary: normal external genitalia Extremities: no cyanosis Skin: no lesions Neurologic/Psychiatric: manager client service II-XII grossly normal Lymphatic: no neck adenopathy Microbiology Date/Time Source Procedure Growth Status 12/26/16 17:15 Blood Blood Culture - Preliminary NO GROWTH AFTER 24 HOURS Resulted 12/26/16 17:00 Blood Blood Culture - Preliminary NO GROWTH AFTER 24 HOURS Resulted 12/26/16 17:15 Nasal Nares Influenza Types A,B Antigen (SHYANNE) - Final Complete 12/26/16 17:35 Urine,Clean Catch Urine Culture - Final Escherichia Coli - Esbl Complete 12/27/16 01:58 Leg Left Gram Stain - Final Resulted 12/27/16 01:58 Leg Left Wound Culture Pending Resulted Current Medications Medications (Trade) Dose Ordered Sig/Angeli Route PRN Reason Start Time Stop Time Status Last Admin Dose Admin Acetaminophen (Tylenol) 650 mg Q4H PRN ORAL T>100.5 12/27/16 17:15 01/25/17 17:14 Albuterol/ Ipratropium (DuoNeb 0.5-3(2.5)mg/3ml) 3 ml Q4H PRN HHN Shortness of Breath 12/27/16 17:15 12/31/16 17:14 Dextrose (Dextrose 50%) STAT PRN IV Hypoglycemia 12/27/16 17:15 01/25/17 17:14 Ertapenem 1 gm/ Sodium Chloride 55 ml @ 110 mls/hr Q24H IVPB 12/27/16 22:00 01/01/17 21:59 12/27/16 22:18 Heparin Sodium (Porcine) (Heparin 5000 units/ml) 5,000 units EVERY 12 HOURS SUBQ 12/27/16 21:00 01/25/17 20:59 12/28/16 09:10 Insulin Aspart (NovoLOG) BEFORE MEALS AND HS SUBQ 12/27/16 21:00 01/25/17 20:59 12/28/16 11:55 Morphine Sulfate (Morphine Sulfate) 2 mg Q4H PRN IVP Moderate Pain (Pain Scale 4-6) 12/27/16 17:15 01/02/17 17:14 Nitroglycerin (Ntg) 0.4 mg Q5MIN X 3 DOSES PRN SL Prn Chest Pain 12/27/16 17:15 01/25/17 19:29 Ondansetron HCl (Zofran) 4 mg Q6H PRN IVP Nausea & Vomiting 12/27/16 17:15 01/25/17 17:14 Polyethylene Glycol (Miralax) 17 gm DAILYPRN PRN ORAL Constipation 12/27/16 17:15 01/25/17 17:14 Temazepam (Restoril) 15 mg HSPRN PRN ORAL Insomnia 12/27/16 21:00 01/02/17 20:59 Vancomycin HCl (Vanco rx to dose) 1 ea DAILY PRN MISC PRN RX TO DOSE PROTOCOL 12/27/16 09:00 12/28/16 23:59 Vancomycin HCl 1 gm/Dextrose 250 ml @ 166.636 mls/hr Q24H IVPB 12/27/16 20:00 12/28/16 23:59 12/27/16 20:39 TRINA VÁSQUEZ Dec 28, 2016 15:15
[2016-12-28 16:00] VITALS: BP 118/73
[2016-12-28] MEDS ORDERED: Heparin 2000 units/Ns 1000ml INJ ONE (17:00)
[2016-12-28] MEDS ORDERED: Lidocaine 1% Plain 30 ml INJ ONE (17:00)
[2016-12-28 20:00] VITALS: BP 113/65
[2016-12-28] MEDS ORDERED: Dyna-Hex 2% Top Sol 2oz TOPIC SCH (20:00)
[2016-12-28] MEDS: Ertapenem 1 GM in NS 55 ML IVPB SCH (21:00)
[2016-12-29 00:02] VITALS: BP 117/65
[2016-12-29 03:36] VITALS: BP 121/62
[2016-12-29] MEDS: NovoLOG Insulin Flexpen SUBQ SCH ×4 (06:30→21:07)
[2016-12-29 08:00] VITALS: BP 94/59
[2016-12-29] MEDS: Heparin 5000 units/ml inj SUBQ SCH ×2 (09:15→21:05)
--- NOTE | 2016-12-29 10:24 | Diagnostic Imaging Report ---
Indication: Abnormal renal function tests, hydronephrosis demonstrated on prior CT scan Technique: Grayscale and duplex images of the kidneys, retroperitoneum, and bladder were obtained. Comparison:Reference made to CT scan dated 11/30/2016 Findings: Right kidney measures 12.5 cm in length. Left kidney measures 10.9 cm in length. Both kidneys demonstrate normal echogenicity. Both kidneys demonstrate mild hydronephrosis. No focal abnormality. Normal inferior vena cava. Bladder is distended. Impression: Bilateral mild hydronephrosis. This is much less severe than is demonstrated on prior CT scan, however. Uncertain as whether current findings represent residual downstream obstruction, or just represent residual ectasia of the collecting systems related to the prior massive hydronephrosis.. Correlate with clinical and laboratory findings Distended bladder
[2016-12-29 12:00] VITALS: BP 127/70
--- NOTE | 2016-12-29 14:05 | Diagnostic Imaging Report ---
Indications: Needs long-term IV access Technique: Ultrasound confirms patent compressible left basilic vein. Total sterile technique, including sterile probe cover and sterile gel, hat, mask,, sterile gown, large sterile drape, and preparation with 2% chlorhexidine utilized. Local anesthesia with 1% lidocaine. Under real-time ultrasound guidance, puncture basilic vein using 21-gauge needle, documented and archived, passage 0.018 guidewire under direct fluoroscopy, which was used to determine appropriate catheter length, exchange for 5 Latvian peel-away sheath. 5 [place] Bard dual-lumen power PICC cut to 41 cm. It was inserted through the peel-away sheath. Peel-away sheath and guidewire removed. Catheter fixed to the skin. Both catheter ports aspirated and flushed. Patient tolerated procedure well, without immediate complication. Digital radiograph documents satisfactory catheter tip position, at the cavoatrial junction. Total fluoroscopy time 0.6 minutes. Total dose area product 18 dGycm2 Impression: Successful placement of left arm PICC under sonographic and fluoroscopic guidance, as described above.
[2016-12-29 16:15] VITALS: BP 117/65
[2016-12-29 20:00] VITALS: BP 125/64
[2016-12-29] MEDS ORDERED: Dyna-Hex 2% Top Sol 2oz TOPIC SCH (20:00)
[2016-12-29] MEDS: Ertapenem 1 GM in NS 55 ML IVPB SCH (21:07)
--- NOTE | 2016-12-29 21:40 | Infectious Diseases Prog Note ---
Assessment/Plan Assessment/Plan Assessment: // Recurrent Complicated ESBL+ E.coli UTI / pyelonephritis - renal US 12/27: Bilateral mild hydronephrosis. This is much less severe than is demonstrated on prior CT scan, however. Uncertain as whether current findings represent residual downstream obstruction, or just represent residual ectasia of the collecting systems related to the prior massive hydronephrosis. Distended bladder - CT A/P 11/30: Massive bilateral hydronephrosis and bilateral hydroureter. Some stranding of the bilateral perinephric and periureteral fat, could indicate superimposed infection. Nonspecific prominent para-aortic, paracaval, left inguinal nodes // Leukocytosis - resolved //Fever - resolved // Uterine prolapse SP manual reduction 12/02 by urology -had pessary that has been removed prior to last admission // NKDA // Full Code Plan: - DC planning for Ertapenem d# 3 / to be followed by PO bactrim suppression pending hysterectomy ( 12/28 SP IV vancomycin d# 3 ) ( 12/27 SP Cefepime #2 ) (12/20 14d Ertapenem) (12/03 3d Cefepime) ( 12/02 SP IV vancomycin d# 2 - needs ObGy/urology re-evaluation as suspect her recurrent UTI/pyelo is due to obstructive nephropathy given uterine prolapse -f/u cx -Monitor CBC/BMP, temperatures Subjective Allergies: Coded Allergies: No Known Allergies (Unverified , 11/30/16) Subjective fevers, leukocytosis resolved Objective Vital Signs Last 24 Hour Vital Signs Date Time Temp Pulse Resp B/P (MAP) Pulse Ox O2 Delivery O2 Flow Rate FiO2 12/29/16 20:48 78 20 Room Air 21 12/29/16 16:15 97.6 77 21 117/65 99 Room Air 12/29/16 12:00 97.9 79 16 127/70 97 Room Air 12/29/16 08:00 68 16 Room Air 12/29/16 08:00 98.1 86 18 94/59 97 Room Air 12/29/16 03:36 97.0 68 20 121/62 96 Room Air 12/29/16 00:02 97.0 71 20 117/65 97 Room Air Height (Feet): 5 Height (Inches): 2.00 Weight (Pounds): 125 General Appearance: no acute distress Respiratory/Chest: no respiratory distress Cardiovascular: normal rate, regular rhythm Abdomen: normal bowel sounds, soft, non tender, non distended Microbiology Date/Time Source Procedure Growth Status 12/27/16 06:42 Nasal Nares MRSA Culture - Final NO METHICILLIN RESISTANT STAPH AUREUS... Complete 12/27/16 06:42 Rectum VRE Culture - Final Enterococcus Faecalis - Vre Complete 12/27/16 01:58 Leg Left Gram Stain - Final Resulted 12/27/16 01:58 Wound Culture - Preliminary Gram Negative Bacillus 1 Strep Species, Gamma-Hemolytic Resulted Current Medications Medications (Trade) Dose Ordered Sig/Angeli Route PRN Reason Start Time Stop Time Status Last Admin Dose Admin Acetaminophen (Tylenol) 650 mg Q4H PRN ORAL T>100.5 12/27/16 17:15 01/25/17 17:14 Albuterol/ Ipratropium (DuoNeb 0.5-3(2.5)mg/3ml) 3 ml Q4H PRN HHN Shortness of Breath 12/27/16 17:15 12/31/16 17:14 Chlorhexidine Gluconate (Mervat-Hex 2%) 1 applic DAILY@2000 TOPIC 12/29/16 20:00 01/28/17 19:59 12/29/16 21:03 Dextrose (Dextrose 50%) STAT PRN IV Hypoglycemia 12/27/16 17:15 01/25/17 17:14 Ertapenem 1 gm/ Sodium Chloride 55 ml @ 110 mls/hr Q24H IVPB 12/27/16 22:00 01/01/17 21:59 12/29/16 21:07 Heparin Sodium (Porcine) (Heparin 5000 units/ml) 5,000 units EVERY 12 HOURS SUBQ 12/27/16 21:00 01/25/17 20:59 12/29/16 21:05 Insulin Aspart (NovoLOG) BEFORE MEALS AND HS SUBQ 12/27/16 21:00 01/25/17 20:59 12/29/16 21:07 Morphine Sulfate (Morphine Sulfate) 2 mg Q4H PRN IVP Moderate Pain (Pain Scale 4-6) 12/27/16 17:15 01/02/17 17:14 Nitroglycerin (Ntg) 0.4 mg Q5MIN X 3 DOSES PRN SL Prn Chest Pain 12/27/16 17:15 01/25/17 19:29 Ondansetron HCl (Zofran) 4 mg Q6H PRN IVP Nausea & Vomiting 12/27/16 17:15 01/25/17 17:14 Polyethylene Glycol (Miralax) 17 gm DAILYPRN PRN ORAL Constipation 12/27/16 17:15 01/25/17 17:14 Temazepam (Restoril) 15 mg HSPRN PRN ORAL Insomnia 12/27/16 21:00 01/02/17 20:59 LOIS JIMENEZ Dec 29, 2016 21:39
--- NOTE | 2016-12-29 22:01 | Pulmonology Progress Note ---
Assessment/Plan Problems: (1) Pyelonephritis (2) Sepsis (3) Hypertension (4) Diabetes mellitus Assessment/Plan check cultures continue abx med/surg f/u ID recommendations dc home with 20 dasy of IV ab x Subjective ROS Limited/Unobtainable: No Constitutional: Reports: no symptoms HEENT: Repors: no symptoms Respiratory: Reports: no symptoms Allergies: Coded Allergies: No Known Allergies (Unverified , 11/30/16) Objective Last 24 Hour Vital Signs Date Time Temp Pulse Resp B/P (MAP) Pulse Ox O2 Delivery O2 Flow Rate FiO2 12/29/16 20:48 78 20 Room Air 21 12/29/16 16:15 97.6 77 21 117/65 99 Room Air 12/29/16 12:00 97.9 79 16 127/70 97 Room Air 12/29/16 08:00 68 16 Room Air 21 12/29/16 08:00 98.1 86 18 94/59 97 Room Air 12/29/16 03:36 97.0 68 20 121/62 96 Room Air 12/29/16 00:02 97.0 71 20 117/65 97 Room Air Intake and Output 12/29/16 12/30/16 19:00 07:00 Intake Total 240 ml Balance 240 ml Intake Oral 240 ml General Appearance: WD/WN HEENT: normocephalic, atraumatic Respiratory/Chest: chest wall non-tender, lungs clear Breasts: no masses Cardiovascular: normal peripheral pulses Abdomen: normal bowel sounds, soft, non tender Genitourinary: normal external genitalia Neurologic/Psychiatric: foot gatherer II-XII grossly normal Microbiology Date/Time Source Procedure Growth Status 12/27/16 06:42 Nasal Nares MRSA Culture - Final NO METHICILLIN RESISTANT STAPH AUREUS... Complete 12/27/16 06:42 Rectum VRE Culture - Final Enterococcus Faecalis - Vre Complete 12/27/16 01:58 Leg Left Gram Stain - Final Resulted 12/27/16 01:58 Wound Culture - Preliminary Gram Negative Bacillus 1 Strep Species, Gamma-Hemolytic Resulted Current Medications Medications (Trade) Dose Ordered Sig/Angeli Route PRN Reason Start Time Stop Time Status Last Admin Dose Admin Acetaminophen (Tylenol) 650 mg Q4H PRN ORAL T>100.5 12/27/16 17:15 01/25/17 17:14 Albuterol/ Ipratropium (DuoNeb 0.5-3(2.5)mg/3ml) 3 ml Q4H PRN HHN Shortness of Breath 12/27/16 17:15 12/31/16 17:14 Chlorhexidine Gluconate (Mervat-Hex 2%) 1 applic DAILY@2000 TOPIC 12/29/16 20:00 01/28/17 19:59 12/29/16 21:03 Dextrose (Dextrose 50%) STAT PRN IV Hypoglycemia 12/27/16 17:15 01/25/17 17:14 Ertapenem 1 gm/ Sodium Chloride 55 ml @ 110 mls/hr Q24H IVPB 12/27/16 22:00 01/01/17 21:59 12/29/16 21:07 Heparin Sodium (Porcine) (Heparin 5000 units/ml) 5,000 units EVERY 12 HOURS SUBQ 12/27/16 21:00 01/25/17 20:59 12/29/16 21:05 Insulin Aspart (NovoLOG) BEFORE MEALS AND HS SUBQ 12/27/16 21:00 01/25/17 20:59 12/29/16 21:07 Morphine Sulfate (Morphine Sulfate) 2 mg Q4H PRN IVP Moderate Pain (Pain Scale 4-6) 12/27/16 17:15 01/02/17 17:14 Nitroglycerin (Ntg) 0.4 mg Q5MIN X 3 DOSES PRN SL Prn Chest Pain 12/27/16 17:15 01/25/17 19:29 Ondansetron HCl (Zofran) 4 mg Q6H PRN IVP Nausea & Vomiting 12/27/16 17:15 01/25/17 17:14 Polyethylene Glycol (Miralax) 17 gm DAILYPRN PRN ORAL Constipation 12/27/16 17:15 01/25/17 17:14 Temazepam (Restoril) 15 mg HSPRN PRN ORAL Insomnia 12/27/16 21:00 01/02/17 20:59 TRINA VÁSQUEZ Dec 29, 2016 22:01
[2016-12-30] VITALS: BP 120/66
[2016-12-30 04:00] VITALS: BP 115/63
[2016-12-30] MEDS: NovoLOG Insulin Flexpen SUBQ SCH ×2 (06:30→11:30)
[2016-12-30 07:51] VITALS: BP 108/65
[2016-12-30] MEDS: Heparin 5000 units/ml inj SUBQ SCH (09:06)
[2016-12-30 11:35] VITALS: BP 102/63
[2016-12-30] MEDS ORDERED: D5NS 1000ml IV ONE (12:08)
[2016-12-30] MEDS ORDERED: Tubing IV Secondary IV ONE (12:08)
[2016-12-30] MEDS ORDERED: INVANZ1 GM IVPB (12:24)
[2016-12-30] MEDS ORDERED: MIRALAX17 G2 ORAL (12:28)
[2016-12-30] MEDS ORDERED: ACETAMINOPHEN325 M1 ORAL (12:28)
[2016-12-30 16:15] VITALS: BP 105/70
--- NOTE | 2016-12-30 17:05 | Pulmonology Progress Note ---
Assessment/Plan Problems: (1) Pyelonephritis (2) Sepsis (3) Hypertension (4) Diabetes mellitus Assessment/Plan continue abx med/surg f/u ID recommendations dc home with 20 dasy of IV ab x Subjective ROS Limited/Unobtainable: No Constitutional: Reports: no symptoms Respiratory: Reports: wheezing Cardiovascular: Reports: no symptoms Allergies: Coded Allergies: No Known Allergies (Unverified , 11/30/16) Objective Last 24 Hour Vital Signs Date Time Temp Pulse Resp B/P (MAP) Pulse Ox O2 Delivery O2 Flow Rate FiO2 12/30/16 16:15 98.6 89 20 105/70 97 Room Air 12/30/16 11:35 97.5 74 19 102/63 97 Room Air 12/30/16 08:03 72 18 Room Air 21 12/30/16 07:51 97.2 79 19 108/65 96 Room Air 12/30/16 04:00 97.0 55 18 115/63 97 Room Air 21 12/30/16 00:00 98.2 70 18 120/66 97 Room Air 12/29/16 20:48 78 20 Room Air 21 12/29/16 20:00 97.8 75 18 125/64 98 Room Air Intake and Output 12/30/16 12/31/16 19:00 07:00 Intake Total 520 ml Output Total 550 ml Balance -30 ml Intake Oral 520 ml Output Urine Total 550 ml General Appearance: WD/WN HEENT: normocephalic, atraumatic Respiratory/Chest: chest wall non-tender, lungs clear Breasts: no masses Cardiovascular: normal rate Abdomen: normal bowel sounds, soft, non tender Extremities: no cyanosis Skin: no lesions Current Medications Medications (Trade) Dose Ordered Sig/Angeli Route PRN Reason Start Time Stop Time Status Last Admin Dose Admin Acetaminophen (Tylenol) 650 mg Q4H PRN ORAL T>100.5 12/27/16 17:15 01/25/17 17:14 Albuterol/ Ipratropium (DuoNeb 0.5-3(2.5)mg/3ml) 3 ml Q4H PRN HHN Shortness of Breath 12/27/16 17:15 12/31/16 17:14 Chlorhexidine Gluconate (Mervat-Hex 2%) 1 applic DAILY@1999 TOPIC 12/29/16 20:00 01/28/17 19:59 10/18/17 21:03 Dextrose (Dextrose 50%) STAT PRN IV Hypoglycemia 12/27/16 17:15 01/25/17 17:14 Ertapenem 1 gm/ Sodium Chloride 55 ml @ 110 mls/hr Q24H IVPB 12/27/16 22:00 01/16/17 21:59 12/29/16 21:07 Heparin Sodium (Porcine) (Heparin 5000 units/ml) 5,000 units EVERY 12 HOURS SUBQ 12/27/16 21:00 01/25/17 20:59 12/30/16 09:06 Insulin Aspart (NovoLOG) BEFORE MEALS AND HS SUBQ 12/27/16 21:00 01/25/17 20:59 12/29/16 21:07 Morphine Sulfate (Morphine Sulfate) 2 mg Q4H PRN IVP Moderate Pain (Pain Scale 4-6) 12/27/16 17:15 01/02/17 17:14 Nitroglycerin (Ntg) 0.4 mg Q5MIN X 3 DOSES PRN SL Prn Chest Pain 12/27/16 17:15 01/25/17 19:29 Ondansetron HCl (Zofran) 4 mg Q6H PRN IVP Nausea & Vomiting 12/27/16 17:15 01/25/17 17:14 Polyethylene Glycol (Miralax) 17 gm DAILYPRN PRN ORAL Constipation 12/27/16 17:15 01/25/17 17:14 Temazepam (Restoril) 15 mg HSPRN PRN ORAL Insomnia 12/27/16 21:00 01/02/17 20:59 TRINA VÁSQUEZ Dec 30, 2016 17:05
--- NOTE | 2016-12-31 11:31 | Discharge Summary ---
Discharge Summary Hospital Course Date of Admission Dec 26, 2016 at 18:05 Date of Discharge Dec 30, 2016 at 17:23 Admitting Diagnosis sepsis HPI Crystal Carlos is a 61 year old female who was admitted on Dec 26, 2016 at 18:05 for Sepsis Hospital Course [id number] Discharge Discharge Disposition Patient was discharged to Home with Home Health(06) Discharge Diagnoses: Cadence Baca NP Dec 31, 2016 11:31
--- NOTE | 2016-12-31 19:15 | Discharge Summary 2 SIG ---
DATE OF ADMISSION: 12/26/2016 DATE OF DISCHARGE: 12/30/2016 CONSULTANTS: Gilles Omer M.D. BRIEF HOSPITAL COURSE: The patient is a 61-year-old female with history of diabetes mellitus and hypertension and was admitted last month for sepsis due to urinary tract infection with E. coli., walked into ED complaining of fever, chills and left-sided abdominal pain with nausea and vomiting. She has urinary prolapse and was recommended outpatient hysterectomy, however, never followed up. On evaluation at ED, the patient was febrile and was tachycardic. Blood work showed leukocytosis. He was restarted on Invanz and was admitted to telemetry for sepsis. He was followed by Infectious Disease specialist and was given IV vancomycin and ertapenem. Renal ultrasound done showed bilateral mild hydronephrosis, which is less severe than prior CT scan. Urine culture showed growth of ESBL. She came in with a left lower medial leg diabetic ulcer and was given local wound care. She was recommended need to follow up with OB-MEDICAL PRACTICE MANAGER and Urology due to recurrent urinary tract infection and pyelonephritis and due to obstructive nephropathy and uterine prolapse. Leukocytosis resolved. PICC line was inserted to the left arm and the patient was discharged home to continue 20 days of IV antibiotics. FINAL DIAGNOSES: 1. Sepsis due to pyelonephritis. 2. Pyelonephritis. 3. Hypertension. 4. Diabetes mellitus. 5. Uterine prolapse. 6. Obstructive nephropathy causing hydronephrosis. 7. Recurrent complicated extended spectrum beta-lactamases and Escherichia coli urinary tract infection/pyelonephritis. DISPOSITION: The patient was discharged home with home health to continue IV antibiotics and wound care. DISCHARGE MEDICATIONS: Continue Invanz 1 g IV for 18 more days. Refer to medication list. FOLLOWUP: Follow up with PCP in a week. Recommend Urology and Gynecologic reevaluation. Jayla Novak M.D. I have been assigned to dictate discharge summary on this account and I was not involved in the patient's management. Cadence Baca N.P. DR: EMILY JOB#: [id number] CC: MAURICIO
--- NOTE | 2017-01-04 08:23 | Cardiology Report ---
APPROVED REPORT EKG Measurement Heart [id number] Sinus tachycardia Otherwise normal ECG
== END 2016-12-30 17:23 | disposition home health service (06) | DRG 720 ==
LOC: EMR 18:02 → 2E 18:05 → EDBEDREQ 18:47 → 4E 12-27 16:48
PROC: 02HV33Z Insertion of Infusion Device into Superior Vena Cava, Percutaneous Approach (ICD-10-PCS; principal; 2016-12-27)
DX: A41.9 Sepsis, unspecified organism (principal); E11.622 Type 2 diabetes mellitus with other skin ulcer; I10 Essential (primary) hypertension; N12 Tubulo-interstitial nephritis, not specified as acute or chronic; N81.4 Uterovaginal prolapse, unspecified; N13.2 Hydronephrosis with renal and ureteral calculous obstruction; B96.20 Unspecified Escherichia coli [E. coli] as the cause of diseases classified elsewhere; Z16.12 Extended spectrum beta lactamase (ESBL) resistance; L97.829 Non-pressure chronic ulcer of other part of left lower leg with unspecified severity
CPT/HCPCS: 36415; 36569; 71010; 76775; 76937; 80053; 81003; 82248; 82550; 82553; 82962; 83605; 84484; 85007; 85025; 86710; 87040; 87070; 87081; 87086; 87181; 87205; 93005; 94664; 99285; J1815; J2405

== ENCOUNTER 2017-01-20 10:58 | Emergency (ER) | payer MEDICAID ==
[~2017-01-20] VITALS: Ht 154.9 cm; Wt 54.4 kg
[~2017-01-20 10:58] MED LIST changes: +ACETAMINOPHEN325 M1 ORAL; +MIRALAX17 G2 ORAL; +NKM
[2017-01-20 11:05] VITALS: BP 135/78
[2017-01-20 12:05] VITALS: BP 134/80
--- NOTE | 2017-01-21 07:24 | Emergency Room Report ---
History of Present Illness General Chief Complaint: General Complaint Source: Patient, Medical Record Present Illness HPI Patient presents with request of removal of left upper arm PICC line Patient was on prolonged IV antibiotics after her recent discharge from the hospital patient reports that she was told that she was done with the medication and that she needed to have the line removed Patient has not had any other contact with other physician has not seen her primary physician Denies any fevers or chills denies any chest pain or shortness of breath Allergies: Coded Allergies: No Known Allergies (Unverified , 11/30/16) Patient History Past Medical History: see triage record Pertinent Family History: none Last Menstrual Period: menopause Reviewed Nursing Documentation: PMH: Agreed, PSxH: Agreed Nursing Documentation-PMH Past Medical History: No History, Except For Hx Cardiac Problems: Yes Hx Hypertension: Yes Hx Diabetes: Yes Hx Cancer: No Hx Gastrointestinal Problems: No Hx Neurological Problems: No Review of Systems All Other Systems: negative except mentioned in HPI Physical Exam Vital Signs Date Time Temp Pulse Resp B/P (MAP) Pulse Ox O2 Delivery O2 Flow Rate FiO2 01/20/17 11:05 97.9 78 18 135/78 99 01/20/17 12:05 Room Air Sp02 EP Interpretation: reviewed, normal General Appearance: well appearing, no apparent distress Head: normocephalic, atraumatic Eyes: bilateral eye PERRL, bilateral eye EOMI ENT: normal pharynx Neck: supple Respiratory: lungs clear Cardiovascular #1: regular rate, rhythm Gastrointestinal: non tender Musculoskeletal: normal inspection Neurologic: alert, oriented x3, responsive Skin: other - PICC line in place in the left upper arm no surrounding erythema Lymphatic: no adenopathy Medical Decision Making Diagnostic Impression: Primary Impression: PICC line removal ER Course I did contact radiology department Patient does not have any followup with them Patient's records were reviewed and the patient did have recent hospitalization here At this time given her request the dressing was removed area cleansed and prepped PICC line was removed in the appropriate fashion with traction easily removed Area again prepped with ChloraPrep and dressing was applied Patient tolerated procedure well and requires close followup Last Vital Signs Date Time Temp Pulse Resp B/P (MAP) Pulse Ox O2 Delivery O2 Flow Rate FiO2 01/20/17 12:05 97.9 77 16 134/80 99 Room Air Status: improved Disposition: HOME, SELF-CARE Condition: Improved Referrals: NON PHYSICIAN (PCP) Patient Instructions: PICC Removal, Care After Additional Instructions: Patient is provided with the discharge instructions notified to follow up with primary doctor in the next 2-3 days otherwise return to the er with any worsening symptoms. Please note that this report is being documented using [employer] technology. This can lead to erroneous entry secondary to incorrect interpretation by the dictating instrument. SUSAN VARGHESE D.O. Jan 21, 2017 07:24
== END 2017-01-20 12:05 | disposition home or self-care (01) ==
LOC: EMR 11:46
DX: Z45.2 Encounter for adjustment and management of vascular access device (principal); I10 Essential (primary) hypertension; E11.9 Type 2 diabetes mellitus without complications
CPT/HCPCS: 99283; Z7502